=== PATIENT | male | born 1955 | race Caucasian/White ===

== ENCOUNTER 2020-10-30 09:53 | Outpatient (REF) | payer OTHER, SELFPAY ==
--- NOTE | ~2020-10-30 | US_ITS ---
EXAMINATION: US VENOUS WITH DOPPLER UPPER EXTREMITY, LEFT CLINICAL INFORMATION: Thrombophlebitis. COMPARISON: 5 mm thin TECHNIQUE: Ultrasound of the upper extremity is performed using compression sonography and color and pulse Doppler flow with assessment of augmentation of flow. There is also imaging and Doppler assessment of the jugular and subclavian veins. Spectral analysis with color-flow imaging is performed. FINDINGS: Respiratory variation, normal compression, and augmented flow are noted throughout the upper extremity including the axillary, brachial, cubital, and radial and ulnar veins. There is normal flow in the internal jugular and subclavian veins. There is no visible deep or superficial thrombophlebitis. There is anterior to bilateral lower fluid collection measuring 2.2 x 0.5 x 0.9 cm most likely communicating to the joint space. If the patient's symptoms progress, a followup ultrasound in 5 -7 days might be of value to exclude proximal propagation from a nonvisualized distal arm vein. US/US venous duplex UE LT IMPRESSION: No DVT demonstrated in the left upper extremity. Small left antecubital fluid collection likely connecting to the elbow joint.
== END 2020-10-30 09:54 | disposition home or self-care (01) ==
LOC: HO.US 09:53
PROVIDERS: PCP Internal Medicine; Visit Provider Emergency Medicine
DX: I80.9 Phlebitis and thrombophlebitis of unspecified site (principal)
CPT/HCPCS: 93971

== ENCOUNTER → 2022-01-12 14:32 | Outpatient (BNVA) | payer OTHER, SELFPAY | PROVIDERS: PCP Internal Medicine; Referring Provider Family Medicine; Visit Provider Internal Medicine Cardiovascular Disease | DX: I10 Essential (primary) hypertension (principal) | CPT/HCPCS: 93005 ==

== ENCOUNTER → 2022-02-16 07:29 | Outpatient (REF) | payer OTHER, SELFPAY ==
--- NOTE | 2022-02-16 07:31 | CA_ITS ---
Transthoracic Echocardiogram Patient (Last, First, Middle): Akil Wilkins, Gender: Male Date of : 1955 Age: 66 Procedure Date: 02/16/2022 Procedure Type: Transthoracic Echocardiogram Location: OP Height: 167.64 cm Weight: 86.18 kg BSA: 1.96 m2 Heart Rate: bpm BP: 152 / 95 mmHg Carpet Tile Layer: LORENA Referring MD: Saeed Pedro MD Assistant Account Manager: Saeed Pedro MD Symptoms: I10 - Essential (primary) hypertension Study Quality: Adequate ECG Rhythm: Sinus Conclusions: - Essentially normal study Findings Left Ventricle Normal left ventricular size, thickness, and systolic function. The visually estimated ejection fraction is between 60-65%. Spectral Doppler is indicative of a normal filling pattern. Peak GLS is -18.5%, within normal limits Right Ventricle Normal right ventricular cavity size and systolic function. Atria Both atria are normal in size. There is no evidence of interatrial shunt. Aortic Valve Normal aortic valve structure and function. There is no aortic valve stenosis. There is no aortic valve regurgitation. Mitral Valve Normal mitral valve structure and function. There is trace mitral valve regurgitation. There is no mitral valve stenosis. Pulmonic Valve The pulmonic valve is likely normal. There is trace pulmonic valve regurgitation. Tricuspid Valve Normal tricuspid valve structure. Tricuspid regurgitation envelope is inadequate for calculation of right ventricular systolic pressure. Normal right atrial pressure. Great Vessels All visible segments of the aorta are normal in size. The pulmonary artery was not well visualized. Venous The inferior vena cava is normal in size and collapses greater than 50% with inspiration. Pericardium/Pleural There is a trivial pericardial effusion. Measurements 2D Linear Measurements IVSd: 1.09 0.6-0.9/0.6-1.0 cm LVIDd: 4.55 3.9-5.3/4.2-5.9 cm LVIDd Index: 2.32 2.4-3.2/2.2-3.1 cm/m2 LVIDs: 2.83 2.0-3.6 cm LVPWd: 1.11 0.7-1.1 cm LA Diam: 3.50 2.7-3.8/3.0-4.0 cm LAIDs Index: 1.79 1.5-2.3 cm/m2 LV Mass: 221.88 67-162/88-224 g LV Mass Index: 113.21 43-95/49-115 g/m2 LVOT Diam: 2.10 3.0+(-)1.3 cm 2D Systolic Function EF 4C: 66.70 >55% EF 2C: 66.00 >55% EF BiP: 65.20 >55% Mitral Valve MV Pk E: 0.84 MV PK A: 0.84 MV Decel Time: 281.00 E/A: 1.00 E'Lateral: 10.30 E'Medial: 7.29 E/E' Med: 11.50 E/E' Lat: 8.20 PHT: 82.00 MVA PHT: 2.68 Decel Cache: 2.99 Aortic Valve AoV Pk Carl: 1.43 AoV Mn Carl: 0.96 AoV VTI: 0.34 AoV Pk Grad: 8.00 Aov Mn Grad: 4.00 ANALIA Cont.VTI: 2.58 LVOT LVOT Pk Carl: 1.10 LVOT Mn Carl: 0.65 LVOT VTI: 0.25 LVOT Pk Grad: 5.00 LVOT Mn Grad: 2.00 LVOT Diam: 2.10 LVOT Area: 3.46 Diastolic Function MV Pk E: 0.84 MV Pk A: 0.84 E/A: 1.00 E'Medial: 7.29 E/E' Med: 11.50 E' Laterial: 10.30 E/E' Lat: 8.20 Right Ventricle TAPSE (mm): 21.20 TVS' Carl: 14.10 Tricuspid Valve RA Press: 3.00 Great Vessels Aorta Sinus of Valsalva: 2.98 2.0-3.[address] [place]: 2.33 1.7-3.4 cm Ao Asc: 3.10 2.1-3.4 cm Updated in Other Vendor System with Status of Final Saeed Pedro MD electronically signed on 02/17/2022 4:25:52 PM with status of Final
== END ==
LOC: HO.CARD 07:29
PROVIDERS: PCP Internal Medicine; Visit Provider Internal Medicine Cardiovascular Disease
DX: I10 Essential (primary) hypertension (principal)
CPT/HCPCS: 93306; 93356

== ENCOUNTER 2022-05-04 15:47 | Inpatient (IN) | payer OTHER, SELFPAY ==
--- NOTE | ~2022-05-04 | US_ITS ---
EXAMINATION: US VENOUS ULTRASOUND WITH DOPPLER LOWER EXTREMITY, RIGHT CLINICAL INFORMATION: Right thigh pain with elevated d-dimer COMPARISON: None TECHNIQUE: Ultrasound of the deep veins is performed from the hip to the calf with compression sonography and color and pulse Doppler assessment. Spectral analysis with color-flow imaging is performed. FINDINGS: There is normal venous compression and respiratory variation and augmented flow. The visualized common femoral vein, superficial femoral vein, profunda femoral vein, popliteal vein, and the trifurcation region shows no evidence of deep venous thrombosis. There is no significant popliteal fossa cyst. The contralateral left common femoral vein is unremarkable. If the patient's symptoms persist, followup ultrasound in 5 days 7 days might be of value to exclude proximal propagation from a non-visualized calf vein. US/US venous duplex LE RT IMPRESSION: No DVT demonstrated in the right lower extremity.
--- NOTE | ~2022-05-04 | XR_ITS ---
EXAMINATION: XR CHEST CLINICAL INFORMATION: Shortness of breath COMPARISON: None TECHNIQUE: Frontal view of the chest was obtained. FINDINGS: No significant abnormality is noted involving the heart, lungs, mediastinum, bony thorax or soft tissues. XR/XR chest 1V IMPRESSION: Unremarkable examination.
--- NOTE | ~2022-05-04 | CT_ITS ---
EXAMINATION: CT ANGIOGRAM OF THE CHEST WITH AND WITHOUT CONTRAST (CT PULMONARY ANGIOGRAM FOR PE) CLINICAL INFORMATION: Reason for Exam + dimer sob hypoxia COMPARISON: None TECHNIQUE: Prior to contrast administration, noncontrast localization images were obtained. Subsequently, multidetector volumetric imaging was performed from the thoracic inlet to below the diaphragms following the administration of 65 mL Omnipaque 350 intravenous contrast. No contrast reaction reported Sagittal, coronal, and MIP oblique sagittal reformatted images were obtained on the CT workstation, uploaded to PACS, and reviewed. This CT examination was performed using dose optimization techniques as appropriate, variously including the following: *Automated exposure control *Adjustment of mA and/or kV according to patient size (this includes techniques or standardized protocols for targeted exams where dose is matched to indication/reason for exam; i.e. extremities or head) *Use of iterative reconstruction technique Total exam dose-length product 374 mGy-cm FINDINGS: QUALITY OF STUDY/CONTRAST BOLUS: Satisfactory. PULMONARY ARTERIES: No central or segmental pulmonary emboli. THORACIC AORTA: No aneurysm or dissection. LUNG: There is dense consolidation in the left lower lobe most likely pneumonia PLEURA: No pleural effusion or pneumothorax. MEDIASTINUM: Normal heart size. No pericardial effusion. No hilar or mediastinal lymphadenopathy. No evidence of septal bowing or right heart strain. CORONARY ARTERY CALCIFICATION: None visualized on this study. CHEST WALL/AXILLA: No axillary or internal mammary lymphadenopathy. OSSEOUS STRUCTURES: No acute or suspicious osseous abnormality. UPPER ABDOMEN: Unremarkable. No reflux of contrast into the hepatic veins to suggest elevated right heart pressures. CT/CT angio chest PE protocol IMPRESSION: No evidence of pulmonary embolism. Left lower lobe pneumonia VTE: negative
[2022-05-04 16:02] VITALS: BP 136/76; BP 153/85; PULSE 89; PULSE 92; RESP 18; TEMP 38.1; O2SAT 92; O2SAT 98; BMI 29.3
[2022-05-04 16:07] VITALS: BP 132/71; PULSE 97; RESP 18; TEMP 38.7; O2SAT 96
--- NOTE | 2022-05-04 16:12 | ED.SOB ---
HPI - SOB/Dyspnea General Chief Complaint: Dyspnea Stated Complaint: DIFF BREATHING,FEVER,COUGH,FROM URGENT CARE Time Seen by Provider: 05/04/22 16:07 Source: patient and EMS Mode of arrival: EMS Limitations: no limitations History of Present Illness HPI Narrative: This is a 66-year-old male history of JOAQUINA, hypertension presenting to the emergency department via ambulance from the [facility] according to patient he does not know why he is here he tells me that they told him he was short of breath, and had bad oxygen, he tells me that he initially went there to get evaluated for body aches and pains and right-sided calf pain, when they saw his oxygen (90-92% on RA) they called an ambulance and brought him in for further evaluation. Patient arrives on 2 L saturating 99%, I took oxygen off upon patient's arrival any saturating 97% on room air without labored breathing. Patient reports that he has been having 2 days of right upper thigh pain, and body aches and pains as well as fatigue and malaise. Denies any other medical complaints at this time. He denies chest pain, shortness of breath, cough, nausea, vomiting, abdominal pain, headache, vision changes, lower extremity edema, vision changes, dizziness. Patient not on blood thinners, no history of DVT or PE. Patient doesnt wear oxygen at home. Patient denies trauma to right thigh Related Data Home Medications Medication Instructions Recorded Confirmed amlodipine 10 mg tablet 10 mg PO DAILY 01/12/22 01/12/22 ascorbate calcium (vitamin C) 500 500 mg PO DAILY 01/12/22 01/12/22 mg tablet aspirin 81 mg tablet,delayed 81 mg PO DAILY 01/12/22 01/12/22 release (Adult Aspirin Regimen) cholecalciferol (vitamin D3) 25 25 mcg PO DAILY 01/12/22 01/12/22 mcg (1,000 unit) capsule cinnamon bark 500 mg capsule 500 mg PO DAILY 01/12/22 01/12/22 (Cinnamon) metoprolol succinate 100 mg 100 mg PO DAILY 01/12/22 01/12/22 tablet,extended release 24 hr multivitamin 1 tab PO DAILY 01/12/22 01/12/22 simvastatin 40 mg tablet 40 mg PO BEDTIME 01/12/22 01/12/22 Previous Rx's Medication Instructions Recorded valsartan 160 1 tab PO DAILY #30 tabs 01/12/22 mg-hydrochlorothiazide 25 mg tablet bisacodyl 5 mg tablet,delayed 10 mg PO ONCE 1 day #2 tabs 01/19/22 release (Dulcolax (bisacodyl)) polyethylene glycol 3350 17 238 g PO ONCE #238 grams 01/19/22 gram/dose oral powder (Miralax) Allergies Allergy/AdvReac Type Severity Reaction Status Date / Time penicillin G [Penicillin G] Allergy Mild SYNCOPE Verified 05/04/22 16:05 Review of Systems Review of Systems: Constitutional : No Weight loss, No Fever, No Chills, + Fatigue, + Malaise ENT/Mouth : No sore throat, No Rhinorrhea Eyes: No Eye Pain, No Swelling, No Redness Cardiovascular : No Chest Pain, No SOB, No Dyspnea on Exertion, No Orthopnea, No Edema, No Palpitations Respiratory : No Cough, No Sputum, No Wheezing Gastrointestinal : No Nausea, No Vomiting, No Diarrhea, No Constipation, No abdominal Pain, No Hematochezia, No Melena Genitourinary : No Dysuria, No Urinary Frequency, No Hematuria, Musculoskeletal : No joint pain, + Myalgias, No Joint Swelling, + right thigh pain Skin : No Skin Lesions, No rash Neuro : No Weakness, No Numbness, No Dizziness, No Headache Psych : No Anxiety/Panic, No Depression All other systems reviewed and are negative Yes all other systems are reviewed and are negative [facility] Past Medical History Attestation statement: The following information was validated with the patient. Source: old records reviewed and nursing notes reviewed Medical History HTN (hypertension) Obstructive sleep apnea Family History Family History Father HTN (hypertension) Mother No problems noted. Social History Social History Patient Tobacco Use Status: Never used Tobacco Advance Directives: No Advance Directives Information Provided: Yes Physical Exam Vital Signs: Vital Signs: Last Vital Signs Temp 100.3 F 05/04/22 17:46 Pulse 97 05/04/22 16:07 Resp 18 05/04/22 16:07 BP 132/71 01/31/23 16:07 Pulse Ox 96 05/04/22 16:07 O2 Del Method 05/04/22 16:07 O2 Flow Rate 2 05/04/22 16:07 Oxygen Flow Rate 2 05/04/22 16:02 BMI result Body Mass Index 29.3 Patient is noted to be febrile. Appearance: Alert.? Oriented X3.? No acute distress.? Head: Normocephalic, atraumatic, no step-offs or deformities Eyes: Pupils equal, round and reactive to light.? ENT: Pharynx normal.? Neck: Normal inspection.? Neck supple.? CVS: Normal heart rate and rhythm.? Pulses normal.? Respiratory: No respiratory distress.? Breath sounds diminished to LLL.? Abdomen: Soft and nontender.? Skin: Skin warm and dry.? Normal skin color.? Normal skin turgor.? Extremities: No calf ttp, negative Abbey bilaterally. 5/5 strength to bilateral upper and lower extremities Back: No midline tenderness, no C-spine tenderness, full range of motion, no CVA tenderness bilaterally Neuro: Oriented X 3.? No motor deficit.? No sensory deficit. CN 2-12 intact Course Reevaluation(s) Reevaluation #1: CBC appears to be around patient's baseline with a baseline normocytic anemia. Patient's chemistry with hyponatremia 128, chloride also low 93, patient noted to have acute kidney injury BUN of 17, creatinine of 1.43 I suspect this is secondary to poor p.o. intake/dehydration. Patient's lactic acid 1.2. UA negative. Flu/COVID/negative. Chest xray unremarkable. Patient's D-dimers positive therefore CTA and right lower extremity duplex ordered and pending. Patient's BNP and troponin pending. Time: 17:00 Reevaluation #2: CTA with no blood clot, there is a left lower lobe pneumonia noted on scan. Patient was febrile at 1 point hypoxic, within TOD and hyponatremia at this time infection suspected antibiotics and fluids will be ordered. Discuss this case with hospitalist will admit patient for further intervention and treatment. Time: 19:31 Medications Administered Discontinued Medications Generic Name Dose Route Start Last Admin Trade Name Freq PRN Reason Stop Dose Admin Acetaminophen 975 mg 05/04/22 16:07 05/04/22 16:31 Acetaminophen 325 Mg Tablet PO 05/04/22 16:08 975 mg ONCE ONE Administration Sodium Chloride 1,000 mls @ 999 mls/hr 05/04/22 17:45 05/04/22 18:12 Ns IV 05/04/22 18:45 999 mls/hr .Q1H1M YULI Administration Sodium Chloride 1,000 mls @ 999 mls/hr 05/04/22 17:45 05/04/22 18:13 Ns IV 05/04/22 18:45 999 mls/hr .Q1H1M YULI Administration Iohexol 100 ml 05/04/22 18:34 05/04/22 18:34 Iohexol 350 Mg/Ml 100 Ml Infus..Btl IV 05/04/22 18:35 65 ml ONCE ONE Administration Medical Decision Making Medical Decision Making [facility] Narrative: 1615 This is a 66-year-old male presenting to the emergency department from urgent care with complaints of fatigue, malaise, body aches and pains and shortness of breath. Was noted to be hypoxic 90% on room air at urgent care. Patient does not wear oxygen. Also complaining of right thigh pain Physical exam LLL w/ diminished BS. Negative Abbey bilaterally. No lower extremity edema. Likely viral in origin ? PNA . Will rule out DVT of right lower extremity however unlikely. Unlikely that this is PE, ACS, CHF. Plan at this time labs, imaging, viral testing. Differential Diagnosis Differential Diagnoses: The differential diagnosis associated with the presentation includes Likely viral in origin ? PNA . Will rule out DVT of right lower extremity however unlikely. Unlikely that this is PE, ACS, CHF. Admission/Observation Consideration of admission/observation: Escalation of care including admission/observation considered Lab Data [facility] Lab Attestation statement: I reviewed the patient's lab results. 05/04/22 16:47 05/04/22 16:47 Labs: Lab Results 05/04/22 05/04/22 05/04/22 Range/Units 16:46 16:46 16:46 WBC (4.8-10.8) X10*3/uL RBC (4.60-5.80) X10*6/uL Hgb (14.0-18.0) g/dl Hct (42.0-52.0) % MCV (80.0-98.0) fL MCH (27.0-33.0) pg MCHC (31.0-36.0) g/dl RDW (11.0-16.0) % Plt Count (160-400) X10*3/uL MPV (9.4-12.4) fL Immature Gran % (Auto) (0.0-0.4) % Neut % (Auto) (45-73) % Lymph % (Auto) (20-40) % [place] % (Auto) (2-11) % Eos % (Auto) (0-4) % Baso % (Auto) (0-2) % Lymph # (Auto) (1.2-4.9) X10*3/uL [place] # (Auto) (0.1-1.2) X10*3/uL Eos # (Auto) (0.0-0.4) X10*3/uL Baso # (Auto) (0.0-0.2) X10*3/uL Abs Immat Gran (auto) (0.00-0.03) X10*3/uL Absolute Neuts (auto) (2.0-8.3) x10*3/uL Absolute Nucleated RBC (0.0-0.012) X10*3/uL Nucleated RBC % (auto) (0.0-0.2) /100WBC D-Dimer High Sensitivty NG/ML Sodium (135-145) mmol/L Potassium (3.3-5.1) mmol/L Chloride (96-108) mmol/L Carbon Dioxide (22-29) mmol/L Anion Gap (12-20) BUN (9-16) mg/dL Creatinine (0.5-1.4) mg/dL Estim Creat Clear Calc Estimated GFR Random Glucose (60-115) mg/dL Lactic Acid (0.5-2.0) mmol/L Calcium (8.4-10.2) mg/dL Magnesium (1.6-2.6) mg/dL Total Bilirubin (0.0-1.0) mg/dL AST (5-37) U/L ALT (0-40) U/L Alkaline Phosphatase (39-117) U/L Troponin I High Sens 13.9 (<3.5-35.0) ng/L B-Natriuretic Peptide (<100) pg/mL Total Protein (6.5-8.0) g/dL Albumin (3.5-5.0) g/dL Urine Color Urine Appearance Urine pH (5.0-9.0) Ur Specific [place] (1.005-1.025) Urine Protein (Neg-Trace) mg/dL Urine Glucose (UA) (Negative) mg/dL Urine Ketones (Negative) mg/dL Urine Blood (Negative) Urine Nitrite (Negative) Ur Leukocyte Esterase (Negative) Urine RBC (0-2) /HPF Urine WBC (0-5) /HPF Ur Squamous Epith Cells (0-2) /HPF Urine Bacteria (None Seen) Hyaline Casts (0-2) /LPF Granular Casts COVID-19 (SURJIT) Negative (Negative) COVID-19 Clin Com See Note Influenza Type A (CORI) Negative (Negative) Influenza Type B (CORI) Negative (Negative) Influenza A & B Note See Note 05/04/22 05/04/22 05/04/22 Range/Units 16:46 16:46 16:47 WBC 7.7 (4.8-10.8) X10*3/uL RBC 5.07 (4.60-5.80) X10*6/uL Hgb 12.3 L (14.0-18.0) g/dl Hct 38.2 L (42.0-52.0) % MCV 75.3 L (80.0-98.0) fL MCH 24.3 L (27.0-33.0) pg MCHC 32.2 (31.0-36.0) g/dl RDW 13.1 (11.0-16.0) % Plt Count 103 L (160-400) X10*3/uL MPV 11.2 (9.4-12.4) fL Immature Gran % (Auto) 0.3 (0.0-0.4) % Neut % (Auto) 82.8 H (45-73) % Lymph % (Auto) 10.1 L (20-40) % [place] % (Auto) 6.5 (2-11) % Eos % (Auto) 0.0 (0-4) % Baso % (Auto) 0.3 (0-2) % Lymph # (Auto) 0.8 L (1.2-4.9) X10*3/uL [place] # (Auto) 0.5 (0.1-1.2) X10*3/uL Eos # (Auto) 0.0 (0.0-0.4) X10*3/uL Baso # (Auto) 0.0 (0.0-0.2) X10*3/uL Abs Immat Gran (auto) 0.02 (0.00-0.03) X10*3/uL Absolute Neuts (auto) 6.4 (2.0-8.3) x10*3/uL Absolute Nucleated RBC 0.000 (0.0-0.012) X10*3/uL Nucleated RBC % (auto) 0.0 (0.0-0.2) /100WBC D-Dimer High Sensitivty NG/ML Sodium (135-145) mmol/L Potassium (3.3-5.1) mmol/L Chloride (96-108) mmol/L Carbon Dioxide (22-29) mmol/L Anion Gap (12-20) BUN (9-16) mg/dL Creatinine (0.5-1.4) mg/dL Estim Creat Clear Calc Estimated GFR Random Glucose (60-115) mg/dL Lactic Acid (0.5-2.0) mmol/L Calcium (8.4-10.2) mg/dL Magnesium (1.6-2.6) mg/dL Total Bilirubin (0.0-1.0) mg/dL AST (5-37) U/L ALT (0-40) U/L Alkaline Phosphatase (39-117) U/L Troponin I High Sens (<3.5-35.0) ng/L B-Natriuretic Peptide 24 (<100) pg/mL Total Protein (6.5-8.0) g/dL Albumin (3.5-5.0) g/dL Urine Color Yellow Urine Appearance Clear Urine pH 6.0 (5.0-9.0) Ur Specific [place] 1.025 (1.005-1.025) Urine Protein 100 (2+) H (Neg-Trace) mg/dL Urine Glucose (UA) Negative (Negative) mg/dL Urine Ketones 15 (Negative) mg/dL Urine Blood Moderate (2+) H (Negative) Urine Nitrite Negative (Negative) Ur Leukocyte Esterase Negative (Negative) Urine RBC 0-2 (0-2) /HPF Urine WBC 0-5 (0-5) /HPF Ur Squamous Epith Cells 6-10 (0-2) /HPF Urine Bacteria None Seen (None Seen) Hyaline Casts 3-5 (0-2) /LPF Granular Casts Present COVID-19 (SURJIT) (Negative) COVID-19 Clin Com Influenza Type A (CORI) (Negative) Influenza Type B (CORI) (Negative) Influenza A & B Note 05/04/22 05/04/22 05/04/22 Range/Units 16:47 16:47 16:47 WBC (4.8-10.8) X10*3/uL RBC (4.60-5.80) X10*6/uL Hgb (14.0-18.0) g/dl Hct (42.0-52.0) % MCV (80.0-98.0) fL MCH (27.0-33.0) pg MCHC (31.0-36.0) g/dl RDW (11.0-16.0) % Plt Count (160-400) X10*3/uL MPV (9.4-12.4) fL Immature Gran % (Auto) (0.0-0.4) % Neut % (Auto) (45-73) % Lymph % (Auto) (20-40) % [place] % (Auto) (2-11) % Eos % (Auto) (0-4) % Baso % (Auto) (0-2) % Lymph # (Auto) (1.2-4.9) X10*3/uL [place] # (Auto) (0.1-1.2) X10*3/uL Eos # (Auto) (0.0-0.4) X10*3/uL Baso # (Auto) (0.0-0.2) X10*3/uL Abs Immat Gran (auto) (0.00-0.03) X10*3/uL Absolute Neuts (auto) (2.0-8.3) x10*3/uL Absolute Nucleated RBC (0.0-0.012) X10*3/uL Nucleated RBC % (auto) (0.0-0.2) /100WBC D-Dimer High Sensitivty 401 NG/ML Sodium 128 L (135-145) mmol/L Potassium 3.3 (3.3-5.1) mmol/L Chloride 93 L (96-108) mmol/L Carbon Dioxide 26 (22-29) mmol/L Anion Gap 12 (12-20) BUN 17 H (9-16) mg/dL Creatinine 1.43 H (0.5-1.4) mg/dL Estim Creat Clear Calc 55.4 Estimated GFR 50 Random Glucose 172 H (60-115) mg/dL Lactic Acid 1.2 (0.5-2.0) mmol/L Calcium 7.8 L (8.4-10.2) mg/dL Magnesium 1.9 (1.6-2.6) mg/dL Total Bilirubin 1.0 (0.0-1.0) mg/dL AST 44 H (5-37) U/L ALT 19 (0-40) U/L Alkaline Phosphatase 45 (39-117) U/L Troponin I High Sens (<3.5-35.0) ng/L B-Natriuretic Peptide (<100) pg/mL Total Protein 6.9 (6.5-8.0) g/dL Albumin 3.8 (3.5-5.0) g/dL Urine Color Urine Appearance Urine pH (5.0-9.0) Ur Specific [place] (1.005-1.025) Urine Protein (Neg-Trace) mg/dL Urine Glucose (UA) (Negative) mg/dL Urine Ketones (Negative) mg/dL Urine Blood (Negative) Urine Nitrite (Negative) Ur Leukocyte Esterase (Negative) Urine RBC (0-2) /HPF Urine WBC (0-5) /HPF Ur Squamous Epith Cells (0-2) /HPF Urine Bacteria (None Seen) Hyaline Casts (0-2) /LPF Granular Casts COVID-19 (SURJIT) (Negative) COVID-19 Clin Com Influenza Type A (CORI) (Negative) Influenza Type B (CORI) (Negative) Influenza A & B Note Independent Interpretation I performed an independent interpretation of an: Plain X-Ray Radiology Impression Discussion of test interpretation with radiology: I have reviewed the radiologist's reading. Core Measures AMI core measures followed: Yes Measure exclusions: not indicated Critical Care Time Critical Care Time Critical Care Time: Yes Total Critical Care Time: 35 Attestation: I attest to this time spent taking care of the patient, obtaining history, physical, reviewing labs, imaging, speaking to my attending, speaking to specialist. Discharge Plan Discharge Clinical Impression: Left lower lobe pneumonia, Shortness of breath, Hyponatremia, TOD (acute kidney injury) Patient Disposition: Admitted As Inpatient Prescriptions: No Action simvastatin 40 mg tablet 40 mg PO BEDTIME amlodipine 10 mg tablet 10 mg PO DAILY metoprolol succinate 100 mg tablet extended release 24 hr 100 mg PO DAILY multivitamin Tablet 1 tab PO DAILY aspirin [Adult Aspirin Regimen] 81 mg tablet,delayed release (DR/EC) 81 mg PO DAILY ascorbate calcium (vitamin C) 500 mg tablet 500 mg PO DAILY cinnamon bark [Cinnamon] 500 mg capsule 500 mg PO DAILY cholecalciferol (vitamin D3) 25 mcg (1,000 unit) capsule 25 mcg PO DAILY valsartan-hydrochlorothiazide 160-25 mg tablet 1 tab PO DAILY Qty: 30 5RF bisacodyl [Dulcolax (bisacodyl)] 5 mg tablet,delayed release (DR/EC) 10 mg PO ONCE 1 Days Qty: 2 0RF Rx Instructions: take 2 tabs at noon the day before your colonoscopy polyethylene glycol 3350 [Miralax] 17 gram/dose powder 238 g PO ONCE Qty: 238 0RF Rx Instructions: As directed by gastroenterology department at [facility]
[2022-05-04] MEDS: Acetaminophen 325 MG TABLET 975 MG PO (16:31)
[2022-05-04 17:00] LABS: Hemoglobin 12.3 g/dl (14.0-18.0); Imm Gran Abs Auto 0.02 X10*3/uL (0.00-0.03); Imm Gran Pct Auto 0.3 % (0.0-0.4); PLT CLUMP 1; Red Cell Distribution Width 13.1 % (11.0-16.0); SCAN SMEAR FLAG 1
[2022-05-04 17:02] LABS: Basophils Percent Auto 0.3 % (0-2); Hematocrit 38.2 % (42.0-52.0); Lymphocytes Absolute Auto 0.8 X10*3/uL (1.2-4.9); Lymphocytes Percent Auto 10.1 % (20-40); Mean Corpuscular HGB Conc 32.2 g/dl (31.0-36.0); Mean Corpuscular Hemoglobin 24.3 pg (27.0-33.0); Mean Corpuscular Volume 75.3 fL (80.0-98.0); Mean Platelet Volume 11.2 fL (9.4-12.4); Monocytes Absolute Auto 0.5 X10*3/uL (0.1-1.2); Monocytes Percent Auto 6.5 % (2-11); Neutrophils Absolute Auto 6.4 x10*3/uL (2.0-8.3); Neutrophils Percent Auto 82.8 % (45-73); Red Blood Count 5.07 X10*6/uL (4.60-5.80)
[2022-05-04 17:05] LABS: MANUAL DIFF FLAG NO; Platelet Count 103 X10*3/uL (160-400); White Blood Count 7.7 X10*3/uL (4.8-10.8)
[2022-05-04 17:05] LABS: Appearance Urine Clear; Color Urine Yellow; Glucose Urine UA Negative (Negative); Leukocyte Esterase Urine Negative (Negative); Nitrite Urine Negative (Negative); Specific Gravity - Urine 1.025 (1.005-1.025); UMIC TRIGGER UACC YES; Urine Blood Moderate (2+) (Negative); Urine Ketones 15 mg/dL (Negative); Urine Protein 100 (2+) mg/dL (Neg-Trace)
[2022-05-04 17:17] LABS: D Dimer High Sensitivity 401 NG/ML
[2022-05-04 17:18] LABS: COVID-19 Test Negative (Negative); IDNOW Serial# 16C4AD1C; IDNOW Serial# BCCEAD1C; Influenza A Negative (Negative); Influenza B2 Negative (Negative)
[2022-05-04 17:19] LABS: Lactic Acid 1.2 mmol/L (0.5-2.0)
[2022-05-04 17:24] LABS: Alanine Aminotransferase 19 U/L (0-40); Albumin Level 3.8 g/dL (3.5-5.0); Alkaline Phosphatase 45 U/L (39-117); Anion Gap 12 (12-20); Aspartate Amino Transferase 44 U/L (5-37); Blood Urea Nitrogen 17 mg/dL (9-16); Calcium 7.8 mg/dL (8.4-10.2); Carbon Dioxide 26 mmol/L (22-29); Chloride 93 mmol/L (96-108); Creatinine Clr Calc Pharmacy 55.4; Estimated Glomerular Filt Rate 50; Glucose Random 172 mg/dL (60-115); Magnesium 1.9 mg/dL (1.6-2.6); Potassium 3.3 mmol/L (3.3-5.1); Sodium 128 mmol/L (135-145); Total Protein 6.9 g/dL (6.5-8.0)
[2022-05-04 17:29] LABS: B Type Natriuretic Peptide 24 pg/mL (<100)
[2022-05-04 17:31] LABS: Troponin-I High Sensitivity 13.9 ng/L (<3.5-35.0)
[2022-05-04 17:32] LABS: Bacteria Urine None Seen (None Seen); Granular Casts Urine Present; RBC Urine 0-2 /HPF (0-2); WBC Urine 0-5 /HPF (0-5)
[2022-05-04 17:46] VITALS: TEMP 37.9
[2022-05-04] MEDS: 0.9 % Sodium Chloride 1,000 ML 999 ML IV ×3 (18:12→19:40)
[2022-05-04] MEDS: iohexoL 350 MG/ML 100 ML INFUS..BTL IV (18:34)
[2022-05-04] MEDS: cefTRIAXone sodium 1 GM in 0.9 % Sodium Chloride 50 ML IV (19:40)
[2022-05-04 19:47] VITALS: BP 131/68; PULSE 94; RESP 16; O2SAT 97
--- NOTE | 2022-05-04 19:51 | PM.IMHP ---
History of Present Illness Date of Service: 05/04/22 Chief Complaint: Dyspnea This is a 66-year-old male with pertinent history of essential hypertension, mixed hyperlipidemia, obstructive sleep apnea who was sent from [facility] for evaluation of hypoxemia. Patient states he went to [facility] and was told that his oxygen was low. He has had difficulty breathing, worse with exertion. Also been complaining of fever, chills, generalized body ache and cough. Patient was requiring 2 L of supplemental oxygen during ambulation as per EMS. No sick contacts. Patient denies chest discomfort, palpitations, abdominal pain, changes in urinary or bowel habits. No history of DVT or PE. Does not use supplemental oxygen at home. Does not use home CPAP for JOAQUINA. In the emergency department, patient was found to be febrile and requiring 2 L supplemental oxygen. Imaging with left lower lobe pneumonia. Review of Systems Constitutional: Constitutional: Reports chills, Reports fatigue, Reports fever(s), Reports lethargy and Reports malaise Cardiovascular: Cardiovascular: Reports no additional cardiovascular complaints and Reports dyspnea on exertion Respiratory: Respiratory: Reports cough and Reports dyspnea on exertion Gastrointestinal: Gastrointestinal: Reports no additional gastrointestinal complaints Genitourinary: Genitourinary: Reports no additional male genitourinary complaints Endocrine: Endocrine: Reports fatigue PMFSH Medical History HTN (hypertension) Obstructive sleep apnea Family History Father HTN (hypertension) Mother No problems noted. Social History Patient Tobacco Use Status: Never used Tobacco Advance Directives: No Advance Directives Information Provided: Yes Meds Allergies Allergy/AdvReac Type Severity Reaction Status Date / Time penicillin G [Penicillin G] Allergy Mild SYNCOPE Verified 05/04/22 16:05 Active Medications: Current Medications Acetaminophen (Acetaminophen 325 Mg Tablet) 650 mg PO Q6H PRN PRN Reason: Pain, Mild (Pain Scale 1-3) Enoxaparin Sodium (Enoxaparin Sodium 40 Mg/0.4 Ml Syringe) 40 mg SUBCUT Q24H [facility]ULI Ceftriaxone Sodium 1 gm/ (Sodium Chloride) 50 mls @ 100 mls/hr IV ONCE ONE Stop: 05/04/22 19:56 Last Admin: 05/04/22 19:40 Dose: 100 mls/hr Sodium Chloride (Ns) 1,000 mls @ 999 mls/hr IV .Q1H1M YULI Stop: 05/04/22 20:30 Last Admin: 05/04/22 19:40 Dose: 999 mls/hr Ceftriaxone Sodium 1 gm/ (Sodium Chloride) 50 mls @ 100 mls/hr IV Q24H [facility] Azithromycin 500 mg/ Sodium (Chloride) 250 mls @ 125 mls/hr IV Q24H [facility] Melatonin (Melatonin 3 Mg Tablet) 6 mg PO BEDTIME PRN PRN Reason: Insomnia Ondansetron HCl (Ondansetron Hcl 4 Mg/2 Ml Vial) 4 mg IVPUSH Q8H PRN PRN Reason: Nausea and Vomiting Pharmacy Consult (Consult Rx Perform Med Rec) 1 each MISCELLANE ONCE PRN PRN Reason: Consult order Pharmacy Consult (Consult Rx Perform Med Rec) 1 each MISCELLANE ONCE PRN PRN Reason: Consult order Sodium Chloride (0.9 % Sodium Chloride Flush 3 Ml Syringe) 3 ml IVFLUSH QSHIFT [facility] Home Medications Medication Instructions Recorded Confirmed Last Taken Type amlodipine 10 mg tablet 10 mg PO DAILY 01/12/22 01/12/22 Unknown History ascorbate calcium (vitamin C) 500 500 mg PO DAILY 01/12/22 01/12/22 Unknown History mg tablet aspirin 81 mg tablet,delayed 81 mg PO DAILY 01/12/22 01/12/22 Unknown History release (Adult Aspirin Regimen) cholecalciferol (vitamin D3) 25 25 mcg PO DAILY 01/12/22 01/12/22 Unknown History mcg (1,000 unit) capsule cinnamon bark 500 mg capsule 500 mg PO DAILY 01/12/22 01/12/22 Unknown History (Cinnamon) metoprolol succinate 100 mg 100 mg PO DAILY 01/12/22 01/12/22 Unknown History tablet,extended release 24 hr multivitamin 1 tab PO DAILY 01/12/22 01/12/22 Unknown History simvastatin 40 mg tablet 40 mg PO BEDTIME 01/12/22 01/12/22 Unknown History Physical Exam Vital Signs and Narrative: Vital Signs: Last Vital Signs Temp 100.3 F 05/04/22 17:46 Pulse 94 05/04/22 19:47 Resp 16 05/04/22 19:47 BP 131/68 05/04/22 19:47 Pulse Ox 97 05/04/22 19:47 O2 Del Method 05/04/22 19:47 O2 Flow Rate 2 05/04/22 16:07 Oxygen Flow Rate 2 05/04/22 16:02 BMI result Body Mass Index 29.3 Middle-aged male lying in bed on 2 L supplemental oxygen Neck supple, no JVD Regular rate and rhythm, S1-S2 heard Left-sided crackles without wheezing Abdomen soft nontender, no guarding, no rigidity Patient is awake, alert and oriented to self, place, time and person ; no focal motor deficit Psych: Normal mood No pedal edema Results Labs 05/04/22 16:47 05/04/22 16:47 Labs: Laboratory Results - last 24 hr 05/04/22 05/04/22 05/04/22 16:46 16:46 16:46 MCV MCH MCHC RDW Plt Count MPV Immature Gran % (Auto) Neut % (Auto) Lymph % (Auto) [place] % (Auto) Eos % (Auto) Baso % (Auto) Lymph # (Auto) [place] # (Auto) Eos # (Auto) Baso # (Auto) Abs Immat Gran (auto) Absolute Neuts (auto) Absolute Nucleated RBC Nucleated RBC % (auto) D-Dimer High Sensitivty Anion Gap Estim Creat Clear Calc Estimated GFR Random Glucose Lactic Acid Calcium Magnesium Total Bilirubin AST ALT Alkaline Phosphatase Troponin I High Sens 13.9 B-Natriuretic Peptide Total Protein Albumin Urine Color Urine Appearance Urine pH Ur Specific [place] Urine Protein Urine Glucose (UA) Urine Ketones Urine Blood Urine Nitrite Ur Leukocyte Esterase Urine RBC Urine WBC Ur Squamous Epith Cells Urine Bacteria Hyaline Casts Granular Casts COVID-19 (SURJIT) Negative COVID-19 Clin Com See Note Influenza Type A (CORI) Negative Influenza Type B (CORI) Negative Influenza A & B Note See Note 05/04/22 05/04/22 05/04/22 16:46 16:46 16:47 MCV 75.3 L MCH 24.3 L MCHC 32.2 RDW 13.1 Plt Count 103 L MPV 11.2 Immature Gran % (Auto) 0.3 Neut % (Auto) 82.8 H Lymph % (Auto) 10.1 L [place] % (Auto) 6.5 Eos % (Auto) 0.0 Baso % (Auto) 0.3 Lymph # (Auto) 0.8 L [place] # (Auto) 0.5 Eos # (Auto) 0.0 Baso # (Auto) 0.0 Abs Immat Gran (auto) 0.02 Absolute Neuts (auto) 6.4 Absolute Nucleated RBC 0.000 Nucleated RBC % (auto) 0.0 D-Dimer High Sensitivty Anion Gap Estim Creat Clear Calc Estimated GFR Random Glucose Lactic Acid Calcium Magnesium Total Bilirubin AST ALT Alkaline Phosphatase Troponin I High Sens B-Natriuretic Peptide 24 Total Protein Albumin Urine Color Yellow Urine Appearance Clear Urine pH 6.0 Ur Specific [place] 1.025 Urine Protein 100 (2+) H Urine Glucose (UA) Negative Urine Ketones 15 Urine Blood Moderate (2+) H Urine Nitrite Negative Ur Leukocyte Esterase Negative Urine RBC 0-2 Urine WBC 0-5 Ur Squamous Epith Cells 6-10 Urine Bacteria None Seen Hyaline Casts 3-5 Granular Casts Present COVID-19 (SURJIT) COVID-19 Clin Com Influenza Type A (CORI) Influenza Type B (CORI) Influenza A & B Note 05/04/22 05/04/22 05/04/22 16:47 16:47 16:47 MCV MCH MCHC RDW Plt Count MPV Immature Gran % (Auto) Neut % (Auto) Lymph % (Auto) [place] % (Auto) Eos % (Auto) Baso % (Auto) Lymph # (Auto) [place] # (Auto) Eos # (Auto) Baso # (Auto) Abs Immat Gran (auto) Absolute Neuts (auto) Absolute Nucleated RBC Nucleated RBC % (auto) D-Dimer High Sensitivty 401 Anion Gap 12 Estim Creat Clear Calc 55.4 Estimated GFR 50 Random Glucose 172 H Lactic Acid 1.2 Calcium 7.8 L Magnesium 1.9 Total Bilirubin 1.0 AST 44 H ALT 19 Alkaline Phosphatase 45 Troponin I High Sens B-Natriuretic Peptide Total Protein 6.9 Albumin 3.8 Urine Color Urine Appearance Urine pH Ur Specific [place] Urine Protein Urine Glucose (UA) Urine Ketones Urine Blood Urine Nitrite Ur Leukocyte Esterase Urine RBC Urine WBC Ur Squamous Epith Cells Urine Bacteria Hyaline Casts Granular Casts COVID-19 (SURJIT) COVID-19 Clin Com Influenza Type A (CORI) Influenza Type B (CORI) Influenza A & B Note Imaging Radiologist's Impressions: Impressions Chest X-Ray 05/04/22 17:09 IMPRESSION: Unremarkable examination. Chest CTA 05/04/22 18:38 IMPRESSION: No evidence of pulmonary embolism. Left lower lobe pneumonia VTE: negative Venous Duplex 05/04/22 18:56 IMPRESSION: No DVT demonstrated in the right lower extremity. Assessment and Plan (1) Shortness of breath: Status: Acute (2) Hyponatremia: Status: Acute (3) TOD (acute kidney injury): Status: Acute (4) Left lower lobe pneumonia: Status: Acute Plan This is a 66-year-old male with pertinent history of essential hypertension, mixed hyperlipidemia, obstructive sleep apnea who was sent from [facility] for evaluation of hypoxemia. #. Sepsis and ambulatory hypoxemia due to left lower lobe pneumonia: Will admit patient and continue empiric IV antibiotics. Lactic acid and blood culture obtained. Also obtaining sputum culture with Gram stain and Legionella antigen. Resuscitated with IV crystalloids #. Hyponatremia, likely hypovolemic: Monitor with fluid resuscitation #. Acute kidney injury, stage I likely pre renal: Monitor urine output and creatinine with fluid resuscitation. Avoid nephrotoxins #. Thrombocytopenia: Likely in the setting of infection. Monitor #. JOAQUINA: Not on CPAP at home #. Mixed hyperlipidemia: On statin #. Essential hypertension: Home antihypertensive in the setting of sepsis. Restart as appropriate Med rec pending DVT prophylaxis: Lovenox 40 mg daily Full code Cardiac diet Admit as inpatient and will require two night minimum hospital stay for IV antibiotics Time Spent With Patient Time: Total time managing care of this patient today ____ minutes. Quality Stroke Does the patient have a stroke diagnosis?: No VTE Prior VTE?: No VTE Risk Level:: Medical - moderate - high VTE Device Contraindication: Treatment Not Indicated VTE Drug Contraindication: N/A - Med Ordered
--- NOTE | 2022-05-04 20:02 | PC.NURSE ---
this rn assumed care of pt @1900. pt resting comfortably on stretcher at this time. pt medicated according to jun. pt family member at bedside at this time
[2022-05-04 20:58] LABS: Troponin-I High Sensitivity 12.3 ng/L (<3.5-35.0)
--- NOTE | 2022-05-04 21:03 | MHC.CM.PN ---
CM met with admitted patient with bed assignment pending. A&Ox4. full time staff interpreter used as pt is Amharic speaking only. is present. Employed. Lives with . No DME/serivces. [employer] x2. Has JOAQUINA, does NOT use CPAP. No HCP on file. Reviewed, completed and signed. Copies given. Uploaded into [facility] and [facility]. HCP/ Debby Stanley [phone]. D/C plan: Home without services. to transport home. CM will follow for discharge needs.
--- NOTE | 2022-05-04 21:04 | PHA.MEDREC ---
Pharmacy Consult ? Medication Reconciliation Pharmacy has completed the medication reconciliation. Spoke with patient via tape controlled machine stitcher. Patient knew all home meds, last took doses yesterday.
[2022-05-04] MEDS: Enoxaparin Sodium 40 MG/0.4 ML SYRINGE SUBCUT (21:09)
[2022-05-04] MEDS: Azithromycin 500 MG in 0.9 % Sodium Chloride 250 ML 125 MG IV (21:09)
[2022-05-04 22:03] VITALS: BMI 30.5
[2022-05-04 22:10] VITALS: BP 139/77; PULSE 101; RESP 19; TEMP 37.7; O2SAT 91
[2022-05-05] VITALS (7 sets, daily range): BP systolic 104–142; BP diastolic 52–72; PULSE 93–108; RESP 16–19; TEMP 36.9–39.3; O2SAT 88–95
[2022-05-05] MEDS: Acetaminophen 325 MG TABLET 650 MG PO ×2 (00:14→15:30)
--- NOTE | 2022-05-05 01:11 | PC.NURSE ---
patient found around midnight to be 88%room air. 2L oxygen applied with improvement to 93%. No SOB, or cough. Tylenol given for temp 102.1 oral.
[2022-05-05 07:06] LABS: MANUAL DIFF FLAG NO
[2022-05-05 07:22] LABS: Hematocrit 35.5 % (42.0-52.0); Hemoglobin 11.3 g/dl (14.0-18.0); Imm Gran Abs Auto 0.01 X10*3/uL (0.00-0.03); Imm Gran Pct Auto 0.2 % (0.0-0.4); Lymphocytes Absolute Auto 0.8 X10*3/uL (1.2-4.9); Lymphocytes Percent Auto 14.6 % (20-40); Mean Corpuscular HGB Conc 31.8 g/dl (31.0-36.0); Mean Corpuscular Hemoglobin 23.8 pg (27.0-33.0); Mean Corpuscular Volume 74.9 fL (80.0-98.0); Monocytes Absolute Auto 0.4 X10*3/uL (0.1-1.2); Monocytes Percent Auto 7.3 % (2-11); Neutrophils Absolute Auto 4.1 x10*3/uL (2.0-8.3); Neutrophils Percent Auto 77.9 % (45-73); Platelet Count 106 X10*3/uL (160-400); Red Blood Count 4.74 X10*6/uL (4.60-5.80); Red Cell Distribution Width 13.3 % (11.0-16.0); White Blood Count 5.2 X10*3/uL (4.8-10.8)
[2022-05-05 07:53] LABS: Anion Gap 12 (12-20); Blood Urea Nitrogen 14 mg/dL (9-16); Carbon Dioxide 25 mmol/L (22-29); Chloride 102 mmol/L (96-108); Creatinine Clr Calc Pharmacy 74.7; Estimated Glomerular Filt Rate > 60; Glucose Random 147 mg/dL (60-115); Potassium 3.6 mmol/L (3.3-5.1); Sodium 135 mmol/L (135-145)
[2022-05-05 07:59] LABS: Calcium 7.1 mg/dL (8.4-10.2)
[2022-05-05] MEDS: 0.9 % Sodium Chloride Flush 3 ML SYRINGE IVFLUSH ×3 (09:23→20:27)
--- NOTE | 2022-05-05 15:32 | HO.PM.IMPN ---
Subjective Subjective Date of Service: 05/05/22 Interval History: Seen in follow-up for left lower lobe pneumonia with sepsis, pre renal TOD Interval history: Patient seen examined this morning, feeling much better. No overnight events. However did develop fever of 102.7, tachycardic to 108 likely secondary to fever, not sepsis. No leukocytosis. No complaints Review of Systems Review of Systems: Yes all other systems are reviewed and are negative Physical Exam Vital Signs: Vital Signs: Last Vital Signs Temp 102.7 F H 05/05/22 15:13 Pulse 108 H 05/05/22 15:13 Resp 19 05/05/22 15:13 BP 142/72 H 05/05/22 15:13 Pulse Ox 94 05/05/22 15:13 O2 Del Method 05/05/22 15:13 O2 Flow Rate 2 05/05/22 03:38 Oxygen Flow Rate 2 05/04/22 16:02 BMI result Body Mass Index 30.5 Constitutional - Awake and Alert, No apparent distress Eyes - PERRLA, EOMI Cardiovascular - S1S2, RRR, No edema Respiratory - Normal lung expansion, Normal respiratory effort, No respiratory distress, diminished LLL with crackles Gastrointestinal - NT / ND; +BS; No rebound or guarding Extremities - no calf tenderness bilaterally, no swelling Skin - Warm/Dry Neurological - Alert & oriented x3 Psychological - Appropriate affect Objective Data Active Medications Acetaminophen (Acetaminophen 325 Mg Tablet) 650 mg PO Q6H PRN PRN Reason: Pain, Mild (Pain Scale 1-3) Last Admin: 05/05/22 00:14 Dose: 650 mg Documented By: MARCEL Enoxaparin Sodium (Enoxaparin Sodium 40 Mg/0.4 Ml Syringe) 40 mg SUBCUT Q24H [facility] Last Admin: 05/04/22 21:09 Dose: 40 mg Documented By: DANIELLE Ceftriaxone Sodium 1 gm/ (Sodium Chloride) 50 mls @ 100 mls/hr IV Q24H [facility] Azithromycin 500 mg/ Sodium (Chloride) 250 mls @ 125 mls/hr IV Q24H [facility] Last Infusion: 05/05/22 00:25 Dose: 125 mls/hr Documented By: MARCEL Melatonin (Melatonin 3 Mg Tablet) 6 mg PO BEDTIME PRN PRN Reason: Insomnia Ondansetron HCl (Ondansetron Hcl 4 Mg/2 Ml Vial) 4 mg IVPUSH Q8H PRN PRN Reason: Nausea and Vomiting Pharmacy Consult (Consult Rx Perform Med Rec) 1 each MISCELLANE ONCE PRN PRN Reason: Consult order Pharmacy Consult (Consult Rx Perform Med Rec) 1 each MISCELLANE ONCE PRN PRN Reason: Consult order Sodium Chloride (0.9 % Sodium Chloride Flush 3 Ml Syringe) 3 ml IVFLUSH QSHIFT [facility] Last Admin: 05/05/22 09:23 Dose: 3 ml Documented By: MEGHAN Labs 05/05/22 06:15 05/05/22 06:15 Labs: Laboratory Results - last 24 hr 05/04/22 05/04/22 05/04/22 16:46 16:46 16:46 MCV MCH MCHC RDW Plt Count MPV Immature Gran % (Auto) Neut % (Auto) Lymph % (Auto) [place] % (Auto) Eos % (Auto) Baso % (Auto) Lymph # (Auto) [place] # (Auto) Eos # (Auto) Baso # (Auto) Abs Immat Gran (auto) Absolute Neuts (auto) Absolute Nucleated RBC Nucleated RBC % (auto) D-Dimer High Sensitivty Anion Gap Estim Creat Clear Calc Estimated GFR Random Glucose Lactic Acid Calcium Magnesium Total Bilirubin AST ALT Alkaline Phosphatase Troponin I High Sens 13.9 B-Natriuretic Peptide Total Protein Albumin Urine Color Urine Appearance Urine pH Ur Specific [place] Urine Protein Urine Glucose (UA) Urine Ketones Urine Blood Urine Nitrite Ur Leukocyte Esterase Urine RBC Urine WBC Ur Squamous Epith Cells Urine Bacteria Hyaline Casts Granular Casts COVID-19 (SURJIT) Negative COVID-19 Clin Com See Note Influenza Type A (CORI) Negative Influenza Type B (CORI) Negative Influenza A & B Note See Note 05/04/22 05/04/22 05/04/22 16:46 16:46 16:47 MCV 75.3 L MCH 24.3 L MCHC 32.2 RDW 13.1 Plt Count 103 L MPV 11.2 Immature Gran % (Auto) 0.3 Neut % (Auto) 82.8 H Lymph % (Auto) 10.1 L [place] % (Auto) 6.5 Eos % (Auto) 0.0 Baso % (Auto) 0.3 Lymph # (Auto) 0.8 L [place] # (Auto) 0.5 Eos # (Auto) 0.0 Baso # (Auto) 0.0 Abs Immat Gran (auto) 0.02 Absolute Neuts (auto) 6.4 Absolute Nucleated RBC 0.000 Nucleated RBC % (auto) 0.0 D-Dimer High Sensitivty Anion Gap Estim Creat Clear Calc Estimated GFR Random Glucose Lactic Acid Calcium Magnesium Total Bilirubin AST ALT Alkaline Phosphatase Troponin I High Sens B-Natriuretic Peptide 24 Total Protein Albumin Urine Color Yellow Urine Appearance Clear Urine pH 6.0 Ur Specific [place] 1.025 Urine Protein 100 (2+) H Urine Glucose (UA) Negative Urine Ketones 15 Urine Blood Moderate (2+) H Urine Nitrite Negative Ur Leukocyte Esterase Negative Urine RBC 0-2 Urine WBC 0-5 Ur Squamous Epith Cells 6-10 Urine Bacteria None Seen Hyaline Casts 3-5 Granular Casts Present COVID-19 (SURJIT) COVID-19 Clin Com Influenza Type A (CORI) Influenza Type B (CORI) Influenza A & B Note 05/04/22 05/04/22 05/04/22 16:47 16:47 16:47 MCV MCH MCHC RDW Plt Count MPV Immature Gran % (Auto) Neut % (Auto) Lymph % (Auto) [place] % (Auto) Eos % (Auto) Baso % (Auto) Lymph # (Auto) [place] # (Auto) Eos # (Auto) Baso # (Auto) Abs Immat Gran (auto) Absolute Neuts (auto) Absolute Nucleated RBC Nucleated RBC % (auto) D-Dimer High Sensitivty 401 Anion Gap 12 Estim Creat Clear Calc 55.4 Estimated GFR 50 Random Glucose 172 H Lactic Acid 1.2 Calcium 7.8 L Magnesium 1.9 Total Bilirubin 1.0 AST 44 H ALT 19 Alkaline Phosphatase 45 Troponin I High Sens B-Natriuretic Peptide Total Protein 6.9 Albumin 3.8 Urine Color Urine Appearance Urine pH Ur Specific [place] Urine Protein Urine Glucose (UA) Urine Ketones Urine Blood Urine Nitrite Ur Leukocyte Esterase Urine RBC Urine WBC Ur Squamous Epith Cells Urine Bacteria Hyaline Casts Granular Casts COVID-19 (SURJIT) COVID-19 Clin Com Influenza Type A (CORI) Influenza Type B (CORI) Influenza A & B Note 05/04/22 05/05/22 05/05/22 20:07 06:15 06:15 MCV 74.9 L MCH 23.8 L MCHC 31.8 RDW 13.3 Plt Count 106 L MPV 12.0 Immature Gran % (Auto) 0.2 Neut % (Auto) 77.9 H Lymph % (Auto) 14.6 L [place] % (Auto) 7.3 Eos % (Auto) 0.0 Baso % (Auto) 0.0 Lymph # (Auto) 0.8 L [place] # (Auto) 0.4 Eos # (Auto) 0.0 Baso # (Auto) 0.0 Abs Immat Gran (auto) 0.01 Absolute Neuts (auto) 4.1 Absolute Nucleated RBC 0.000 Nucleated RBC % (auto) 0.0 D-Dimer High Sensitivty Anion Gap 12 Estim Creat Clear Calc 74.7 Estimated GFR > 60 Random Glucose 147 H Lactic Acid Calcium 7.1 L D Magnesium Total Bilirubin AST ALT Alkaline Phosphatase Troponin I High Sens 12.3 B-Natriuretic Peptide Total Protein Albumin Urine Color Urine Appearance Urine pH Ur Specific [place] Urine Protein Urine Glucose (UA) Urine Ketones Urine Blood Urine Nitrite Ur Leukocyte Esterase Urine RBC Urine WBC Ur Squamous Epith Cells Urine Bacteria Hyaline Casts Granular Casts COVID-19 (SURJIT) COVID-19 Clin Com Influenza Type A (CORI) Influenza Type B (CORI) Influenza A & B Note Assessment and Plan (1) Left lower lobe pneumonia: Status: Acute (2) TOD (acute kidney injury): Status: Acute Plan This is a 66-year-old male with pertinent history of essential hypertension, mixed hyperlipidemia, obstructive sleep apnea who was sent from [facility] for evaluation of hypoxemia. #.? Sepsis- resolved -Treat pneumonia as below. -Mild tachycardia related to fever, not sepsis. No leukocytosis # acute hypoxemic respiratory failure-related to pneumonia-resolved # left lower lobe pneumonia -continue IV ceftriaxone and azithromycin daily Initiated 05/04 -Follox BC -Also obtaining sputum culture with Gram stain and Legionella antigen #.? Hyponatremia- likely hypovolemic- resolved -monitor BMP, encourage PO hydration #.? Acute kidney injury, stage I likely pre renal- resolved -encourage PO hydration, Monitor urine output -monitor bmp #.? Thrombocytopenia:? Likely in the setting of infection- stable -PLT 103. no severe sepsis #.? JOAQUINA -Not on CPAP at home #.? Mixed hyperlipidemia -continue statin #.? Essential hypertension -Resume antihypertensives DVT prophylaxis:? Lovenox 40 mg daily Full code Cardiac diet Patient requires ongoing inpatient stay for management of pneumonia with sepsis and TOD requiring IV fluids and IV antibiotics Time Spent With Patient Time: Total time managing care of this patient today ____ minutes. Quality Stroke Does the patient have a stroke diagnosis?: No VTE Prior VTE?: No VTE Risk Level:: Medical - moderate - high VTE Device Contraindication: Treatment Not Indicated VTE Drug Contraindication: N/A - Med Ordered
[2022-05-05] MEDS: cefTRIAXone sodium 1 GM in 0.9 % Sodium Chloride 50 ML IV (18:25)
[2022-05-05] MEDS: Enoxaparin Sodium 40 MG/0.4 ML SYRINGE SUBCUT (20:27)
[2022-05-05] MEDS: Azithromycin 500 MG in 0.9 % Sodium Chloride 250 ML 125 MG IV (20:30)
[2022-05-05] MEDS: guaiFENesin 100 MG/5 ML LIQUID PO (23:43)
[2022-05-06 03:18] VITALS: BP 134/65; PULSE 95; RESP 17; TEMP 36.9; O2SAT 93
[2022-05-06 07:32] LABS: MANUAL DIFF FLAG NO
[2022-05-06 07:40] LABS: Basophils Percent Auto 0.2 % (0-2); Hematocrit 33.9 % (42.0-52.0); Hemoglobin 10.9 g/dl (14.0-18.0); Imm Gran Abs Auto 0.03 X10*3/uL (0.00-0.03); Imm Gran Pct Auto 0.5 % (0.0-0.4); Lymphocytes Absolute Auto 1.1 X10*3/uL (1.2-4.9); Mean Corpuscular HGB Conc 32.2 g/dl (31.0-36.0); Mean Corpuscular Hemoglobin 24.1 pg (27.0-33.0); Mean Corpuscular Volume 74.8 fL (80.0-98.0); Mean Platelet Volume 12.3 fL (9.4-12.4); Monocytes Absolute Auto 0.4 X10*3/uL (0.1-1.2); Monocytes Percent Auto 6.1 % (2-11); Neutrophils Absolute Auto 4.8 x10*3/uL (2.0-8.3); Neutrophils Percent Auto 76.2 % (45-73); Platelet Count 117 X10*3/uL (160-400); Red Blood Count 4.53 X10*6/uL (4.60-5.80); Red Cell Distribution Width 13.4 % (11.0-16.0); White Blood Count 6.4 X10*3/uL (4.8-10.8)
[2022-05-06 07:51] LABS: Anion Gap 12 (12-20); Blood Urea Nitrogen 11 mg/dL (9-16); Calcium 7.3 mg/dL (8.4-10.2); Carbon Dioxide 27 mmol/L (22-29); Chloride 96 mmol/L (96-108); Creatinine Clr Calc Pharmacy 76.1; Estimated Glomerular Filt Rate > 60; Glucose Random 161 mg/dL (60-115); Potassium 3.6 mmol/L (3.3-5.1); Sodium 131 mmol/L (135-145)
[2022-05-06 08:00] VITALS: BP 149/65; PULSE 97; RESP 17; TEMP 37.4; O2SAT 91
[2022-05-06] MEDS: Cholecalciferol (Vitamin D3) 25 MCG TABLET PO (08:34)
[2022-05-06] MEDS: Metoprolol Succinate ER 100 MG TAB.ER.24H PO (08:34)
[2022-05-06] MEDS: Valsartan 80 MG TABLET PO (08:34)
[2022-05-06] MEDS: Atorvastatin Calcium 20 MG TABLET PO (08:34)
[2022-05-06] MEDS: amLODIPine Besylate 10 MG TABLET PO (08:35)
[2022-05-06] MEDS: hydroCHLOROthiazide 12.5 MG TABLET PO (08:35)
[2022-05-06] MEDS: Ascorbic Acid 500 MG TABLET PO (08:35)
[2022-05-06] MEDS: 0.9 % Sodium Chloride Flush 3 ML SYRINGE IVFLUSH (08:35)
[2022-05-06] MEDS: Multivitamin TABLET 1 TAB PO (08:35)
[2022-05-06] MEDS: Vitamin E (Dl,Tocopheryl Acet) 180 MG (400 UNIT) CAPSULE PO (08:35)
--- NOTE | 2022-05-06 10:03 | PM.DS ---
DS: Providers Provider Date of Service: 05/06/22 Date of admission: 05/04/22 19:47 Primary care physician: Martín Cabrera MD DS: Diagnosis Discharge Diagnosis (1) Left lower lobe pneumonia: Status: Acute (2) TOD (acute kidney injury): Status: Acute DS: Summary Hospital Course Hospital Course: Chief Complaint: Dyspnea This is a 66-year-old male with pertinent history of essential hypertension, mixed hyperlipidemia, obstructive sleep apnea who was sent from [facility] for evaluation of hypoxemia.? Patient states he went to [facility] and was told that his oxygen was low.? He has had difficulty breathing, worse with exertion.? Also been complaining of fever, chills, generalized body ache and cough.? Patient was requiring 2 L of supplemental oxygen during ambulation as per EMS.? No sick contacts.? Patient denies chest discomfort, palpitations, abdominal pain, changes in urinary or bowel habits.? No history of DVT or PE.? Does not use supplemental oxygen at home.? Does not use home CPAP for JOAQUINA. In the emergency department, patient was found to be febrile and requiring 2 L supplemental oxygen.? Imaging with left lower lobe pneumonia. Hospital course: Patient was admitted with pneumonia associated with acute hypoxic respiratory failure and also found to have TOD and hyponatremia. Pneumonia was treated with IV ceftriaxone and Azithro and is doing much better, Off O2, has some cough, no fever, WBC is within normal. Will change antibiotics to Ceftin for total of 7 days. TOD was likely due to pre renal state and has resolved following IV fluid, hyponatremia has improved from 128 to 131 now Time Spent with Patient Time attestation: Total time managing care of this patient today ____ minutes. Discharge coordination time: Greater than 30 minutes Quality: Safe Use of Opioids Does Pt have an Active Cancer Diagnosis on the Problem List?: No Quality: Stroke Does the patient have a stroke diagnosis?: No Physical Exam Vital Signs: Vital Signs: Last Vital Signs Temp 99.3 F 05/06/22 08:00 Pulse 97 05/06/22 08:00 Resp 17 05/06/22 08:00 BP 149/65 H 05/06/22 08:00 Pulse Ox 91 L 05/06/22 08:00 O2 Del Method 05/06/22 08:00 O2 Flow Rate 2 05/05/22 03:38 Oxygen Flow Rate 2 05/04/22 16:02 BMI result Body Mass Index 30.5 DS: Data Data Completed and Pending Labs on day of discharge: Laboratory Results - last 24 hr 05/06/22 05/06/22 06:42 06:42 WBC 6.4 RBC 4.53 L Hgb 10.9 L Hct 33.9 L MCV 74.8 L MCH 24.1 L MCHC 32.2 RDW 13.4 Plt Count 117 L MPV 12.3 Immature Gran % (Auto) 0.5 H Neut % (Auto) 76.2 H Lymph % (Auto) 17.0 L [place] % (Auto) 6.1 Eos % (Auto) 0.0 Baso % (Auto) 0.2 Lymph # (Auto) 1.1 L [place] # (Auto) 0.4 Eos # (Auto) 0.0 Baso # (Auto) 0.0 Abs Immat Gran (auto) 0.03 Absolute Neuts (auto) 4.8 Absolute Nucleated RBC 0.000 Nucleated RBC % (auto) 0.0 Sodium 131 L Potassium 3.6 Chloride 96 Carbon Dioxide 27 Anion Gap 12 BUN 11 Creatinine 1.06 Estim Creat Clear Calc 76.1 Estimated GFR > 60 Random Glucose 161 H Calcium 7.3 L Preliminary micro results at discharge 05/04/22 16:46 Blood Culture - Preliminary Blood - Venous No growth after 24 hours. 05/04/22 16:46 Blood Culture - Preliminary Blood - Venous No growth after 24 hours. Discharge Plan Discharge Anticipated Discharge Date/Time: 05/06/22 09:58 Patient Disposition: Home, Self-Care Discharge Diagnosis: Pneumonia, TOD, hyponatremia Referrals: Martín Cabrera MD [Primary Care Provider] - 1 Week Discharge Medications: New cefuroxime axetil 500 mg tablet 500 mg PO BID 5 Days Qty: 10 0RF dextromethorphan polistirex [Cough DM ER] 30 mg/5 mL suspension,extended rel 12 hr 10 ml PO Q12H PRN (Reason: cough) Qty: 89 0RF Continued valsartan-hydrochlorothiazide 80-12.5 mg tablet 1 tab PO DAILY vitamin A 10,000 unit Capsule 10,000 unit PO DAILY vitamin E (dl, acetate) 180 mg (400 unit) Capsule 180 mg PO DAILY garlic 200 mg Tablet 200 mg PO DAILY simvastatin 40 mg tablet 40 mg PO BEDTIME amlodipine 10 mg tablet 10 mg PO DAILY metoprolol succinate 100 mg tablet extended release 24 hr 100 mg PO DAILY multivitamin Tablet 1 tab PO DAILY ascorbate calcium (vitamin C) 500 mg tablet 500 mg PO DAILY cinnamon bark [Cinnamon] 500 mg capsule 500 mg PO DAILY cholecalciferol (vitamin D3) 25 mcg (1,000 unit) capsule 25 mcg PO DAILY Discharge Orders: Discharge Order (Routine); Ordered 05/06/22 Ordered By: Redd Garcia Diet: Advance to usual diet Activity on Discharge: As tolerated Stand Alone Forms: Patient Portal Discharge page Care Plan Goals: full recovery from pneumonia Health Concerns: pneumonia, hyponatremia, Plan of Treatment: Take Ceftin for pneumonia take Robitussin for cough follow up with your Doctor in a week Assessment: as above
--- NOTE | 2022-05-06 10:21 | MHC.CM.PN ---
PATIENT IS DC HOME - SELF CARE RN AWARE OF PLAN.
[2022-05-11 05:03] LABS: Legionella Ag Urine Not Detected (Not Detected)
== END 2022-05-06 13:16 | disposition home or self-care (01) | DRG 720 ==
LOC: HO.ED 19:33 → HO.EDOVER 19:56 → HO.S3 20:42
PROVIDERS: Physician Assistant; Admitting Provider Student in an Organized Health Care Education/Training Program; Emergency Provider Student in an Organized Health Care Education/Training Program; PCP Internal Medicine; Visit Provider Internal Medicine
DX: A41.9 Sepsis, unspecified organism (principal); J96.01 Acute respiratory failure with hypoxia; N17.9 Acute kidney failure, unspecified; J18.9 Pneumonia, unspecified organism; D69.6 Thrombocytopenia, unspecified; E87.1 Hypo-osmolality and hyponatremia; E86.0 Dehydration; E86.1 Hypovolemia; E78.2 Mixed hyperlipidemia; G47.33 Obstructive sleep apnea (adult) (pediatric); D64.9 Anemia, unspecified; I10 Essential (primary) hypertension; Z20.822 Contact with and (suspected) exposure to COVID-19; Z88.0 Allergy status to penicillin; Z79.899 Other long term (current) drug therapy
CPT/HCPCS: 36415; 71045; 71275; 80048; 80053; 81001; 81003; 83605; 83735; 83880; 84484; 85025; 85379; 87040; 87449; 87502; 87635; 93971; 99285; J0456; J0696; J1650; Q9967

== ENCOUNTER 2023-11-23 15:47 | Outpatient (REF) | payer OTHER, SELFPAY ==
[2023-11-23 18:02] LABS: MANUAL DIFF FLAG NO
[2023-11-23 18:13] LABS: Basophils Absolute Auto 0.1 X10*3/uL (0.0-0.2); Basophils Percent Auto 0.9 % (0-2); Eosinophils Absolute Auto 0.2 X10*3/uL (0.0-0.4); Eosinophils Percent Auto 3.4 % (0-4); Hematocrit 40.5 % (42.0-52.0); Hemoglobin 12.7 g/dl (14.0-18.0); Imm Gran Abs Auto 0.02 X10*3/uL (0.00-0.03); Imm Gran Pct Auto 0.4 % (0.0-0.4); Lymphocytes Percent Auto 35.1 % (20-40); Mean Corpuscular HGB Conc 31.4 g/dl (31.0-36.0); Mean Corpuscular Hemoglobin 24.2 pg (27.0-33.0); Mean Corpuscular Volume 77.3 fL (80.0-98.0); Mean Platelet Volume 11.9 fL (9.4-12.4); Monocytes Absolute Auto 0.6 X10*3/uL (0.1-1.2); Monocytes Percent Auto 11.2 % (2-11); Neutrophils Absolute Auto 2.8 x10*3/uL (2.0-8.3); Platelet Count 196 X10*3/uL (160-400); Red Blood Count 5.24 X10*6/uL (4.60-5.80); Red Cell Distribution Width 12.7 % (11.0-16.0); White Blood Count 5.6 X10*3/uL (4.8-10.8)
[2023-11-23 18:38] LABS: Alanine Aminotransferase 18 U/L (0-40); Albumin Level 4.4 g/dL (3.5-5.0); Alkaline Phosphatase 55 U/L (39-117); Anion Gap 12 (12-20); Aspartate Amino Transferase 21 U/L (5-37); Bilirubin Total 0.6 mg/dL (0.0-1.0); Blood Urea Nitrogen 15 mg/dL (9-16); Calcium 9.4 mg/dL (8.4-10.2); Carbon Dioxide 28 mmol/L (22-29); Chloride 100 mmol/L (96-108); Cholesterol 140 mg/dL (<200); Estimated Glomerular Filt Rate > 60; Glucose Random 209 mg/dL (60-115); HDL Cholesterol 39 mg/dL (>40); LDL Cholesterol Calculated 76 mg/dL (<100); Potassium 3.9 mmol/L (3.3-5.1); Sodium 136 mmol/L (135-145); Triglycerides 129 mg/dL (<150)
[2023-11-23 18:43] LABS: TSH reflex Free T4 2.13 uIU/mL (0.32-4.0)
[2023-11-24 08:20] LABS: ~HepC Num1 0.14 S/CO (0.00-0.79); ~Hepatitis C Antibody Nonreactive (Nonreactive)
== END 2023-11-23 15:48 | disposition home or self-care (01) ==
LOC: HO.CHCLDS 15:47
PROVIDERS: Visit Provider Internal Medicine
DX: E11.22 Type 2 diabetes mellitus with diabetic chronic kidney disease (principal); N18.31 Chronic kidney disease, stage 3a
CPT/HCPCS: 36415; 80053; 80061; 84443; 85025; 86803

== ENCOUNTER 2024-05-29 16:06 | Outpatient (REF) | payer SELFPAY ==
[2024-05-29 18:04] LABS: MANUAL DIFF FLAG NO
[2024-05-29 18:11] LABS: Basophils Percent Auto 0.4 % (0-2); Eosinophils Absolute Auto 0.1 X10*3/uL (0.0-0.4); Eosinophils Percent Auto 0.8 % (0-4); Hematocrit 42.3 % (42.0-52.0); Imm Gran Abs Auto 0.01 X10*3/uL (0.00-0.03); Imm Gran Pct Auto 0.1 % (0.0-0.4); Lymphocytes Absolute Auto 2.3 X10*3/uL (1.2-4.9); Lymphocytes Percent Auto 30.1 % (20-40); Mean Corpuscular HGB Conc 30.7 g/dl (31.0-36.0); Mean Corpuscular Hemoglobin 23.9 pg (27.0-33.0); Mean Corpuscular Volume 77.9 fL (80.0-98.0); Mean Platelet Volume 11.7 fL (9.4-12.4); Monocytes Absolute Auto 0.7 X10*3/uL (0.1-1.2); Monocytes Percent Auto 8.9 % (2-11); Neutrophils Absolute Auto 4.5 x10*3/uL (2.0-8.3); Neutrophils Percent Auto 59.7 % (45-73); Platelet Count 179 X10*3/uL (160-400); Red Blood Count 5.43 X10*6/uL (4.60-5.80); Red Cell Distribution Width 13.2 % (11.0-16.0); White Blood Count 7.6 X10*3/uL (4.8-10.8)
[2024-05-29 18:31] LABS: Alanine Aminotransferase 23 U/L (0-40); Albumin Level 4.7 g/dL (3.5-5.0); Alkaline Phosphatase 60 U/L (39-117); Anion Gap 15 (12-20); Aspartate Amino Transferase 27 U/L (5-37); Bilirubin Total 0.8 mg/dL (0.0-1.0); Blood Urea Nitrogen 19 mg/dL (9-16); Calcium 9.6 mg/dL (8.4-10.2); Carbon Dioxide 27 mmol/L (22-29); Chloride 101 mmol/L (96-108); Estimated Glomerular Filt Rate > 60; Glucose Random 132 mg/dL (60-115); Potassium 3.8 mmol/L (3.3-5.1); Sodium 139 mmol/L (135-145); Total Protein 8.7 g/dL (6.5-8.0)
[2024-05-29 18:46] LABS: TSH reflex Free T4 2.06 uIU/mL (0.32-4.0)
--- OUTSIDE RECORDS SUMMARY | 2024-05-29 19:38 | XMS_ITS | Encounter Summary ---
Author Organization [employer] Address [address] [place] [address] [address] [place] [address] Care Team Providers Care Loan Interviewer Name Role Phone Martín Cabrera MD Primary Care Provider [phone] Radha Dawson PharmD Unavailable [phone] Reason for Visit * Reason Comments Med Refill Encounter Details Date Type Department Care Team ([facility] st Contact Info) Description 12/27/2023 Refill [facility] MED & PEDS [address] [place], [place] [phone] Martín Cabrera MD [address] [place] [address] Essential hypertension Social History Tobacco Use Types Packs/Day Years Used Date Smoking Tobacco: Never Passive Smoke Exposure: Never Smokeless Tobacco: Never Alcohol Use Standard Drinks/Week Comments Not Currently 0 (1 standard drink = 0.6 oz pur e alcohol) Housing Stability Answer Date Recorded What is your housing situation today? I have doreen cavanaugh 01/30/[address] you li ve. Do you have problems with any of the following? None of the above 01/30/2023 Food Insecurity Answer Date Recorded Within the past 12 months, y ou worried that your food would run out before you got money to buy more: Never True 01/30/2023 Within the past 12 months,th e food you bought just didn't last and you didn't have enough money to get more: Never True Transportation Answer Date Recorded In the past 12 months, has l ack of transportation kept you from medical appts, meetings, work or from getting things needed for daily living? No 01/30/2023 Utilities Answer Date Recorded In the past 12 months, has t he electric, gas, oil or water company threatened to shut off services in your home? No 01/30/2023 Sex and Gender Information Value Date Recorded Sex Assigned at Male 02/01/2022 10:19 AM EDT Legal Sex Male 10:19 AM EDT Gender Identity Male 02/01/2022 10:19 AM EDT Sexual Orientation Straight 02/01/2022 10 :19 AM EDT documented as of this encounter Plan of Treatment Upcoming Encounters Date Type Department Care Team (Late st Contact Info) Description 06/07/2024 3:00 PM EST Medication Management [facility] MED & PEDS [address] [place] [address] Radha Dawson PharmD [address] [place] [address] documented as of this encounter Visit Diagnoses Diagnosis Essential hypertension Unspecified essential hypertension documented in this encounter Care Teams Loan Interviewer Relationship Specialty Start Date End Date Martín Cabrera MD [address] [place] [address] PCP - General Internal Medicine 12/27/12 Radha Dawson PharmD [address] [place] [address] Pharmacist Internal Medicine 05/24/24 documented as of this encounter
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
--- OUTSIDE RECORDS SUMMARY | 2024-05-29 19:38 | XMS_ITS | Encounter Summary ---
Author Organization [employer] Address [address] [place] [address] [address] [place] [address] Care Team Providers Care Managing Partner [employer] Name Role Phone Martín Cabrera MD Primary Care Provider [phone] Reason for Visit * Reason Onset Date Comments Med Refill 05/07/2024 Encounter Details Date Type Department Care Team ([facility] st Contact Info) Description 05/07/2024 Refill [facility] MED & PEDS [address] [place] [address] Martín Cabrera MD [address] [place] [address] Primary hypertension Social History Tobacco Use Types Packs/Day Years Used Date Smoking Tobacco: Never Passive Smoke Exposure: Never Smokeless Tobacco: Never Alcohol Use Standard Drinks/Week Comments Not Currently 0 (1 standard drink = 0.6 oz pur e alcohol) Housing Stability Answer Date Recorded What is your housing situation today? I have doreen cavanaugh 05/15/[address] you li ve. Do you have problems with any of the following? None of the above 05/15/2024 Food Insecurity Answer Date Recorded Within the past 12 months, y ou worried that your food would run out before you got money to buy more: Never True 05/15/2024 Within the past 12 months,th e food you bought just didn't last and you didn't have enough money to get more: Never True 02/2025 Transportation Answer Date Recorded In the past 12 months, has l ack of transportation kept you from medical appts, meetings, work or from getting things needed for daily living? No 05/15/2024 Utilities Answer Date Recorded In the past 12 months, has t he electric, gas, oil or water company threatened to shut off services in your home? No 05/15/2024 Internet Access Answer Date Recorded Internet Access Q1 Yes 05/15/2024 Internet Access Q2 Not on file 05/15/2024 Sex and Gender Information Value Date Recorded Sex Assigned at Male 02/01/2022 10:19 AM EDT Legal Sex Male 10:19 AM EDT Gender Identity Male 02/01/2022 10:19 AM EDT Sexual Orientation Straight 02/01/2022 10 :19 AM EDT documented as of this encounter Plan of Treatment Upcoming Encounters Date Type Department Care Team (Late st Contact Info) Description 06/07/2024 3:00 PM EST Medication Management [facility] MED [facility] PEDS [address], [place] [phone] Radha Dawson, PharmD [address] [place] [address] documented as of this encounter Visit Diagnoses Diagnosis Primary hypertension Unspecified essential hypertension documented in this encounter Care Teams Managing Partner [employer] Relationship Specialty Start Date End Date Martín Cabrera MD [address] [place], [place] [phone] PCP - General Internal Medicine 12/27/12 documented as of this encounter
--- OUTSIDE RECORDS SUMMARY | 2024-05-29 19:38 | XMS_ITS | Encounter Summary ---
Author Organization [employer] Address [address] [facility] 7 [place] [address] Care Team Providers Care Claims Correspondence Clerk Name Role Phone Martín Cabrera MD Primary Care Provider [phone] Reason for Visit * Reason Comments Pre-visit Planning SDOH screening negat kaye and Tobacco screening negative Encounter Details Date Type Department Care Team (Late st Contact Info) Description 05/15/2024 Patient Outreach [facility] MEDICINE [address] [place] [address] Martín Cabrera MD [address] [place] [id number] Pre-visit Planning (SDOH screening negative and Tobacco screening negative) Social History Tobacco Use Types Packs/Day Years [...] AM EDT documented as of this encounter Progress Notes * Clemente Whitney - 05/15/2024 2:55 PM EST CC Clemente Diaz placed successful outbound call to patient for pre-visit planning. Patient name and confirmed. Patient confirms appt date and time, and has transportation arrangements. Biggest concern for appointment at this time is high blood sugars and blood pressure but asymptomatic . Patient educated on extended clinic hours on Mondays and Wednesdays, and Walk-In Urgent Care Located in [facility]. Patient provided with after-hours line for [facility], , which offer night time triageservice and option to transfer to special education associate provider if needed. Patient advised to bring to appointment a photo id and insurance card. Appropriate screenings completed in anticipation of appointment. documented in this encounter Plan of Treatment Upcoming Encounters Date Type Department Care Team (Late st Contact Info) Description 06/07/2024 3:00 PM EST Medication Management [facility] MED & PEDS [address] [place] [address] Radha Dawson, PericoD [address] [place] [address] documented as of this encounter Visit Diagnoses Not on filedocumented in this encounter Care Teams Claims Correspondence Clerk Relationship Specialty Start Date End Date Martín Cabrera MD [address] [place] [address] PCP - General Internal Medicine 12/27/12 documented as of this encounter
--- OUTSIDE RECORDS SUMMARY | 2024-05-29 19:38 | XMS_ITS | Encounter Summary ---
Author Organization [employer] Address [address] [facility] 7 [place] [address] Care Team Providers Care Supervisor [employer] Name Role Phone Martín Cabrera MD Primary Care Provider [phone] Radha Dawson PharmD Unavailable [phone] Encounter Details Date Type Department Care Team ([facility] st Contact Info) Description 01/02/2024 Orders Only [facility] MED & PEDS [address] [place], [place] [phone] Martín Cabrera MD [address] [place] [address] Primary hypertension (Primary Dx) Social History Tobacco Use Types Packs/Day Years [...] Description 06/07/2024 3:00 PM EST Medication Management [facility] MED & PEDS [address] [place] [address] Radha Dawson PharmD [address] [place] [address] documented as of this encounter Visit Diagnoses Diagnosis Primary hypertension- Primary Unspecified essential hypertension documented in this encounter Care Teams Supervisor [employer] Treatment [employer] Relationship Specialty Start Date End Date Martín Cabrera MD [address] [place] [address] PCP - General Internal Medicine 12/27/12 Radha Dawson PharmD [address] [place] [address] Pharmacist Internal Medicine 05/24/24 documented as of this encounter
--- OUTSIDE RECORDS SUMMARY | 2024-05-29 19:38 | XMS_ITS | Encounter Summary ---
Author Organization [employer] Address [address] [facility] 7t [place] [address] Care Team Providers Care Occupational Therapy Department Chair Name Role Phone Martín Cabrera MD Primary Care Provider [phone] Encounter Details Date Type Department Care Team ([facility] st Contact Info) Description 05/02/2024 Telephone [facility] MED & PEDS [address] [place], [place] [phone] Radha Dawson, PharmD [address] [place] [address] Social History Tobacco Use Types Packs/Day Years [...] AM EDT documented as of this encounter Miscellaneous Notes * Telephone Encounter - Radha Dawson PharmD - 05/02/2024 9:34 AM EST Hello, this patient has an A1c = 10% and would benefit from the pharmacy CDTM program. Please send a referral for CDTM - Diabetes E11.9. Thank you! documented in this encounter Plan of Treatment Upcoming Encounters Date Type Department Care Team (Late st Contact Info) Description 06/07/2024 3:00 PM EST Medication Management [facility] MED & PEDS [address] [place] [address] Radha Dawson, Yen [address] [place] [address] documented as of this encounter Visit Diagnoses Not on filedocumented in this encounter Care Teams Occupational Therapy Department Chair Relationship Specialty Start Date End Date Martín Cabrera MD [address] [place] [address] PCP - General Internal Medicine 12/27/12 documented as of this encounter
--- OUTSIDE RECORDS SUMMARY | 2024-05-29 19:38 | XMS_ITS | Encounter Summary ---
Author Organization [employer] [facility] Address [address] [facility] 7 [place] [address] Care Team Providers Care Spring Assembler Supervisor Name Role Phone Martín Cabrera MD Primary Care Provider [phone] Radha Dawson PharmD Unavailable [phone] Reason for Visit * Consultation (Routine) - Pending Review Specialty Diagnoses / Procedures Referred By Contac t Referred To Contact Pharmacy Diagnoses Type 2 diabetes mellitus with stage 3a chronic kidney disease, without long-term current use of insulin (CMS/HCC) Martín Cabrera MD [address] [place] [address] Phone: tel: fax: Referral ID Status Reason Start Date Expiration Date Visits Requested Visits Authorized [id number] Pending Review Consult and Treat 05/02/2024 05/02/2025 6 6 Encounter Details Date Type Department Care Team ([facility] st Contact Info) Description 05/24/2024 2:30 PM EST Telemedicine [facility] MED & PEDS [address] [place] [address] Radha Dawson, PharmD [address] [place] [address] Type 2 diabetes mellitus with stage 3a chronic kidney disease, without long-term current use of insulin (CMS/HCC) (Primary Dx) Social History Tobacco Use Types Packs/Day Years Used Date Smoking Tobacco: Never Passive Smoke Exposure: Never Smokeless Tobacco: Never Alcohol Use Standard Drinks/Week Comments Not Currently 0 (1 standard drink = 0.6 oz pur e alcohol) Housing Stability Answer Date Recorded What is your housing situation today? I have doreen sing 05/15/[address] you li [...] as of this encounter Progress Notes * Radha Dawson PharmD - 05/24/2024 2:30 PM EST Pharmacy Consult Visit Type: CDTM Pharmacist: Radha Dawson PharmD Akil Wilkins is a 68 y.o. year old patient here for new patient visit completed over the phone. Subjective History: General / Intake (updated 05/24/24) Allergies: is allergic to penicillins. Read/Write: Yes, in [place] Recent Hospitalizations: No Social History as reported by patient: Tobacco: Denies Alcohol: Denies Caffeine: Current, coffee, 3 cup(s)/day Artificial sweetener and cream Illicit drugs: Denies Diet: Eggs, oatmeal, wheat bread, juice zero sugar Usually skips lunch Rice, beans, meat Likes spinach, lettuce, tomato Exercise: wants to join a gym, currently no Adherence / patient self-management Takes from vials, manages medications independently Denies missed doses ( never ) Refill history demonstrates non-adherence to most medications OTC medication, vitamin, supplement use: reports cinnamon and apple cider vinegar Type 2 Diabetes Last DM visit 11/23/23 New testing supplies sent as pt was not checking BS Pt admitted poor compliance to diet and medications, no changes made Patient endorsed not taking care of myself , stressed in ; reports having since retired and is trying to relax, eat better Pertinent negatives include polyuria, polydipsia, blurred vision SMBG: Freestyle Lite Denies currently checking, tired of it Expressed frustration with pricking fingers and wants CGM. Understands not currently being a candidate due to not using insulin and not having problematic hypoglycemia. Hypertension Last HTN visit 11/23/23 Valsartan increased Patient questions if metoprolol was discontinued. Reports not taking it for 3 months because it wasnot getting refilled. Patient informed it is currently filled at the pharmacy. Pertinent negatives include chest pain, headache, blurry vision, dizziness Reports checking blood pressure at home and that they are stable . Asked patient to check during visit, and patient reports having recently moved and does not have the BP monitor readily available. Hyperlipidemia The 10-year ASCVD risk score (Valerie DK, et al., 2019) is: 38.4% Values used to calculate the score: Age: 68 years Sex: Male Is Non- : No Diabetic: Yes Tobacco smoker: No Systolic Blood Pressure: 159 mmHg Is BP treated: Yes HDL Cholesterol: 39 mg/dL Total Cholesterol: 140 mg/dL Objective History: Treatment history/considerations: PMH: HTN, T2DM, hyperlipidemia, anxiety, depression Medication: n/a Recent labs: A1c: due Albumin/creatinine ratio: due Vit B12 (if on metformin): due Metformin package insert recommends monitoring every 2-3 yrs. Lab Results Component Value Date ALT 18 11/23/2023 AST 21 11/23/2023 LDLCHOLCAL 76 11/23/2023 TRIG 129 11/23/2023 K 3.9 11/23/2023 NA 136 11/23/2023 CREATININE 1.18 11/23/2023 EGFR >60 11/23/2023 HGBA1C 10.0 (A) 11/23/2023 HGBA1C 9.2 (A) 06/08/2022 HGBA1C 9.2 (A) 05/12/2022 CrCl (AdjBW)= 64 mL/min Recent blood pressure readings: BP Readings from Last 4 Encounters: 11/23/23 (!) 159/92 12/07/22 (!) 154/95 06/08/22 (!) 156/96 05/12/22 (!) 142/92 Pulse Readings from Last 4 Encounters: 11/23/23 67 12/07/22 71 06/08/22 66 05/12/22 70 Immunizations Due: COVID-19, Influenza (annual), and PCV20 Offer next visit Preferred Pharmacy: [facility] - [address] [phone] Assessment/Plan: Type 2 Diabetes Pharmacologic Therapy: Metformin 500mg twice daily Additional recommendations per ADA: On aspirin: No On statin: Yes, moderate intensity On ACEI/ARB: Yes Dental Exam in the past 6 mo: Unknown Eye Exam in the past 12 mo: Unknown Goals of Therapy per the ADA Standards of Medical Care in Diabetes Achieve A1c of < 7.0% while also minimizing episodes of hypoglycemia Plan: Patient advised to check blood sugar a few times per week if unwilling to check daily. Patient agreed to check at least twice before next PCP visit on 05/29. Check A1c next visit to determine if changes to medication regimen are warranted. Patient to follow up in CDTM in 2 weeks (in person) for next steps. Education: Healthy diet and lifestyle. Discussed role of A1c monitoring, A1c and SMBG goals Reviewed risks of macro- and microvascular complications of uncontrolled DM. Reviewed signs, symptoms and treatments of hypoglycemia to which patient confirmed understanding. Hypertension Pharmacotherapy: Amlodipine 10mg daily Metoprolol succinate 100mg daily Valsartan-hydrochlorothiazide 160-12.5mg daily Goals of Therapy per JNC 8: Achieve BP <140/90mmHg Plan: Patient instructed to continue metoprolol as it is still active on the medication list. BP was above goal and HR within range when patient was last taking this med (11/23/23). Advised cutting in half to ensure tolerability before increasing to full tablet of 100mg. Metoprolol succinate tablets are scored, patient advised to only cut along the scored line due to extended release mechanism. Check BP next visit to determine if changes to medication regimen are warranted. Patient to follow up in CDTM in 2 weeks (in person) for next steps. Education: Counseling provided to [facility] daily & log results for review in follow up. Reviewed BP goals, patient instructed to call if extremes of BP are noted prior to next scheduled visit. documented in this encounter Plan of Treatment Upcoming Encounters Date Type Department Care Team (Late st Contact Info) Description 06/07/2024 3:00 PM EST Medication Management [facility] MED & PEDS [address] [place] [address] Radha Dawson PharmD [address] [place], [place] [phone] Scheduled Referrals Name Type Priority Associated Diagnoses Orde r Schedule Referral to Pharmacy CDTM Outpatient Referral Routine Type 2 diabetes mellitus with stage 3a chronic kidney disease, without long-term current use of insulin ([facility]) Ordered: 05/02/2024 documented as of this encounter Visit Diagnoses Diagnosis Type 2 diabetes mellitus with stage 3a chronic kidney disease, without long-term current use of insulin ([facility])- Primary documented in this encounter Care Teams Spring Assembler Supervisor Relationship Specialty Start Date End Date Martín Cabrera MD [address] [place] [address] PCP - General Internal Medicine 12/27/12 Radha Dawson PharmD [address] [place] [address] Pharmacist Internal Medicine 05/24/24 documented as of this encounter
--- OUTSIDE RECORDS SUMMARY | 2024-05-29 19:38 | XMS_ITS | Encounter Summary ---
Author Organization [facility] Address [address] [place] [address] [facility] [place] [address] Care Team Providers Care Mental Health Professional Name Role Phone Martín Cabrera MD Primary Care Provider [phone] Radha Dawson PharmD Unavailable [phone] Reason for Referral * Consultation (Routine) - Authorized Specialty Diagnoses / Procedures Referred By Contanabela t Referred To Contact Pharmacy Diagnoses Type 2 diabetes mellitus with stage 3a chronic kidney disease, without long-term current use of insulin (CMS/HCC) Primary hypertension Martín Cabrera MD [address] [place] [address] Phone: tel: fax: Referral ID Status Reason Start Date Expiration Date Visits Requested Visits Authorized [id number] Authorized Consult and Treat 05/29/2024 05/29/2025 6 6 Encounter Details Date Type Department Care Team (Late st Contact Info) Description 05/29/2024 3:30 PM EST Office Visit [facility] [address] [place] [address] Martín Cabrera MD [address] [place] [address] Type 2 diabetes mellitus with stage 3a chronic kidney disease, without long-term current use of insulin (CMS/HCC) (Primary Dx); Mixed hyperlipidemia; Primary hypertension; Screening for colon cancer; Encounter for immunization Social History Tobacco Use Types Packs/Day Years Used Date Smoking Tobacco: Never Passive Smoke Exposure: Never Smokeless Tobacco: Never Alcohol Use Standard Drinks/Week Comments Not Currently 0 (1 standard drink = 0.6 oz pur e alcohol) Depression Answer Date Recorded Patient Health Questionnaire-9 Score 2 05/29/2024 Patient Health Questionnaire-9 Score 2 05/29/2024 Last PHQ-9: Questionnaire Data Not on file 0 05/29/2024 Housing Stability Answer Date Recorded What is [...] off services in your home? No 05/15/2024 Depression Answer Date Recorded Patient Health Questionnaire-2 Score 0 05/29/2024 Internet Access Answer Date Recorded Internet Access Q1 Yes 05/15/2024 Internet Access Q2 Not on file 05/15/2024 Sex and Gender Information Value Date Recorded Sex Assigned at Male 02/01/2022 10:19 AM EDT Legal Sex Male 10:19 AM EDT Gender Identity Male 02/01/2022 10:19 AM EDT Sexual Orientation Straight 02/01/2022 10 :19 AM EDT documented as of this encounter Last Filed Vital Signs Vital Sign Reading Time Taken Comments Blood Pressure 161/95 05/29/2024 3:42 PM EST Pulse 97 05/29/2024 3:42 PM EST Temperature 36.7 ??C (98 ??F) 05/29/2024 3:42 PM EST Respiratory Rate 20 05/29/2024 3:42 PM EST Oxygen Saturation 98% 05/29/2024 3:42 PM EST Inhaled Oxygen Concentration - - Weight 83.5 kg (184 lb) 05/29/2024 3:42 PM EST Height 170 cm (5' 6.93 ) 05/29/2024 3:42 PM EST Body Mass Index 28.88 05/29/2024 3:42 PM EST documented in this encounter Progress Notes * Martín Cabrera MD - 05/29/2024 3:30 PM EST Subjective Patient ID: Akil Wilkins is a 68 y.o. male who presents for No chief complaint on file.. HPI Patient with history of diabetes and hypertension. 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 Patient is here requesting to get some blood work to assess if his blood sugar is still high. Denies any acute events since the last office visit. He has been off his metoprolol for several months. Just got his metoprolol refilled. Patient Active Problem List Diagnosis Anxiety Depressive disorder Diabetes mellitus ([facility]) Hyperlipidemia Hypertension Hospital discharge follow-up Rash Allergies Allergen Reactions Penicillins Current Outpatient Medications on File Prior to Visit Medication Sig Dispense Refill Alcohol Swabs 70 % pads Use to test blood sugar 2 times daily 100 each 11 amLODIPine (Norvasc) 10 MG tablet TAKE ONE TABLET EVERY MORNING 90 tablet 0 ascorbic acid (Vitamin C) 1000 MG tablet Take 1 tablet by mouth 3 times daily. Blood Glucose Monitoring Suppl (FreeStyle [place] Lite) w/Device kit Use to test blood sugar 2 times daily 1 kit 0 cholecalciferol (Vitamin D-3) 25 MCG (1000 UT) capsule Take 1 capsule by mouth 1 (one) time each day. cinnamon 500 MG capsule Take 1 capsule by mouth in the morning. FREESTYLE LITE test strip Use to test blood sugar 2 times daily 100 each 12 Lancets misc Use to test blood sugar 2 times daily 100 each 0 metFORMIN (Glucophage) 500 MG tablet Take 1 tablet (500 mg) by mouth with breakfast and with evening meal. 60 tablet 11 metoprolol succinate XL (Toprol-XL) 100 MG 24 hr tablet Take 1 tablet (100 mg) by mouth Once per day. Do not crush or chew. 30 tablet 11 Multiple Vitamins-Minerals (Centrum Adults) tablet Take 1 tablet by mouth 1 (one) time each day. With food simvastatin (Zocor) 40 MG tablet Take 1 tablet (40 mg) by mouth Once per day. 30 tablet 5 traZODone (Desyrel) 50 MG tablet Take 1 tablet (50 mg) by mouth at bedtime. 30 tablet 3 triamcinolone (Kenalog) 0.1 % cream Apply topically if needed in the morning and at bedtime (pain and swelling). 30 g 2 valsartan-hydroCHLOROthiazide (Diovan HCT) 160-12.5 MG tablet Take 1 tablet by mouth Once per day. 30 tablet 11 [DISCONTINUED] aspirin 81 MG chewable tablet Chew 1 tablet 1 (one) time each day. [DISCONTINUED] dextromethorphan (Delsym) 30 MG/5ML liquid TAKE 10 ML BY MOUTH EVERY 12 HOURS NEEDED FOR COUGH [DISCONTINUED] glucose blood (FREESTYLE LITE) test strip every 12 (twelve) hours. Use to test bloodglucose twice a day [DISCONTINUED] zolpidem (Ambien) 10 MG tablet Take 1 tablet (10 mg) by mouth if needed at bedtime for sleep for up to 2 days. 1 tab one hour prior to the sleep study. 2 tablet 0 No current facility-administered medications on file prior to visit. Review of Systems Constitutional: Negative for activity change, appetite change, chills and diaphoresis. HENT: Negative for dental problem, drooling and ear discharge. Eyes: Negative for pain and itching. Respiratory: Negative for cough, choking and chest tightness. Cardiovascular: Negative for palpitations and leg swelling. Gastrointestinal: Negative for abdominal pain, anal bleeding and blood in stool. Endocrine: Negative for cold intolerance and heat intolerance. Genitourinary: Negative for flank pain, frequency and genital sores. Musculoskeletal: Negative for back pain. Neurological: Negative for light-headedness, numbness and headaches. Psychiatric/Behavioral: Negative for agitation, confusion and decreased concentration. Objective Physical Exam Constitutional: General: He is not in acute distress. Appearance: Normal appearance. He is not ill-appearing or diaphoretic. Cardiovascular: Rate and Rhythm: Normal rate and regular rhythm. Heart sounds: No murmur heard. Pulmonary: Effort: Pulmonary effort is normal. No respiratory distress. Breath sounds: No stridor. No wheezing or rhonchi. Neurological: General: No focal deficit present. Mental Status: He is alert. Psychiatric: Mood and Affect: Mood normal. Assessment/Plan Diagnoses and all orders for this visit: Type 2 diabetes mellitus with stage 3a chronic kidney disease, without long-term current use of insulin (CMS/HCC) Comments: Uncontrolled due to poor compliance to medication and diet Compliance to medication recommended Low-carb diet and regular exercise recommended Orders: - POCT Glucose - POCT HGB A1C - CBC auto differential; Future - Comprehensive Metabolic Panel; Future - TSH W/Reflex to FT4; Future - Referral to Pharmacy CDTM Mixed hyperlipidemia Comments: No change in medication Compliance to medication and diet recommended Primary hypertension Comments: Uncontrolled Diovan dose adjusted Resume metoprolol BP check at home. Keep the log for the next visit. Orders: - valsartan-hydroCHLOROthiazide (Diovan HCT) 320-12.5 MG tablet; Take 1 tablet by mouth Once per day. - Referral to Pharmacy CDTM Screening for colon cancer - Cologuard?? colon cancer screening; Future Encounter for immunization - FLU VACCINE TRIVALENT (Fluarix) 6 mo + - PCV-20 VACCINE 6 wks + documented in this encounter Plan of Treatment Upcoming Encounters Date Type Department Care Team (Late st Contact Info) Description 06/07/2024 3:00 PM EST Medication Management [facility] MED & PEDS [address] [place] [address] Radha Dawson, PharmD [address] [place] [address] Scheduled Orders Name Type Priority Associated Diagnoses Orde r Schedule Cologuard?? colon cancer screening Lab Routine Screening for colon cancer Expected: 05/29/2024 (Approximate), Expires: 05/29/2025 Scheduled Referrals Name Type Priority Associated Diagnoses Orde r Schedule Referral to Pharmacy CDTM Outpatient Referral Routine Type 2 diabetes mellitus with stage 3a chronic kidney disease, without long-term current use of insulin (CMS/HCC) Primary hypertension Ordered: 05/29/2024 documented as of this encounter Procedures Procedure Name Priority Date/Time Associated Diagnosis Comments TSH W/REFLEX TO FT4 Routine 05/29/2024 4 :08 PM EST Type 2 diabetes mellitus with stage 3a chronic kidney disease, without long-term current use of insulin (CMS/HCC) CBC WITH AUTO DIFFERENTIAL Routine 05/29/2024 4:08 PM EST Type 2 diabetes mellitus with stage 3a chronic kidney disease, without long-term current use of insulin ([facility]) COMPREHENSIVE METABOLIC PANEL Routine 05/29/2024 4:08 PM EST Type 2 diabetes mellitus with stage 3a chronic kidney disease, without long-term current use of insulin ([facility]) POCT GLUCOSE Routine 05/29/2024 3:57 PM EST Type 2 diabetes mellitus with stage 3a chronic kidney disease, without long-term current use of insulin ([facility]) POCT GLYCATED HEMOGLOBIN, TOTAL Routine 05/29/2024 3:55 PM EST Type 2 diabetes mellitus with stage 3a chronic kidney disease, without long-term current use of insulin ([facility]) documented in this encounter Results * TSH W/Reflex to FT4 (05/29/2024 4:08 PM EST) TSH reflex Free T4 2.06 0.32 - 4.0 uIU/mL [facility] Blood Venous blood specimen / Unknown 05/29/2024 4:08 PM EST 05/29/2024 6:02 PM EST us Martín Cabrera MD LAB BLOOD ORDERABLES Final Result [facility] [address] [place] [address] [phone] * (ABNORMAL) Comprehensive Metabolic Panel (05/29/2024 4:08 PM EST) Sodium 139 135 - 145 mmol/L [facility] Potassium 3.8 3.3 - 5.1 mmol/L [facility] Chloride 101 96 - 108 mmol/L [facility] Carbon Dioxide 27 22 - 29 mmol/L [facility] Anion Gap 15 12 - 20 [facility] Urea Nitrogen (BUN) 19(H) 9 - 16 mg/dL [facility] Creatinine, Serum 1.04 0.5 - 1.4 mg/dL [facility] Estimated Glomerular Filt Rate >60 [facility] Comment:Chronic Kidney Disea se: Estimated GFR < 60 mL/min/1.14x6Gdcjpl Kidney Disease: Estimated GFR < 15 mL/min/1.73m2 Glucose 132(H) 60 - 115 mg/dL [facility] Calcium 9.6 8.4 - 10.2 mg/dL [facility] Bilirubin, Total 0.8 0.0 - 1.0 mg/dL [facility] Aspartate Amino Transferase 27 5 - 37 U/L [facility] Alanine Aminotransferase 23 0 - 40 U/L [facility] Total Protein 8.7(H) 6.5 - 8.0 g/dL [facility] Albumin Level 4.7 3.5 - 5.0 g/dL [facility] Alkaline Phosphatase 60 39 - 117 U/L [facility] Blood Venous blood specimen / Unknown 05/29/2024 4:08 PM EST 05/29/2024 6:02 PM EST us Martín Cabrera MD LAB BLOOD ORDERABLES Final Result [facility] [address] [place] [address] [phone] * (ABNORMAL) CBC auto differential (05/29/2024 4:08 PM EST) White Blood Count 7.6 4.8 - 10.8 X10*3/uL [facility] Red Blood Count 5.43 4.60 - 5.80 X10*6/uL [facility] Hemoglobin 13.0(L) 14.0 - 18.0 g/dl [facility] Hematocrit 42.3 42.0 - 52.0 % [facility] Mean Corpuscular Volume 77.9(L) 80.0 - 98.0 fL [facility] Mean Corpuscular Hemoglobin 23.9(L) 27.0 - 33.0 pg [facility] Mean Corpuscular HGB Conc 30.7(L) 31.0 - 36.0 g/dl [facility] Red Cell Distribution Width 13.2 11.0 - 16.0 % [facility] Platelet Count 179 160 - 400 X10*3/uL [facility] Mean Platelet Volume 11.7 9.4 - 12.4 fL [facility] Neutrophils Percent Auto 59.7 45 - 73 % [facility] Imm Gran Pct Auto 0.1 0.0 - 0.4 % [facility] Lymphocytes Percent Auto 30.1 20 - 40 % [facility] Monocytes Percent Auto 8.9 2 - 11 % [facility] Eosinophils Percent Auto 0.8 0 - 4 % [facility] Basophils Percent Auto 0.4 0 - 2 % [facility] NRBC Pct Auto 0.0 0.0 - 0.2 /100WBC [facility] Neutrophils Absolute Auto 4.5 2.0 - 8.3 x10*3/uL [facility] Imm Gran Abs Auto 0.01 0.00 - 0.03 X10*3/uL [facility] Lymphocytes Absolute Auto 2.3 1.2 - 4.9 X10*3/uL [facility] Monocytes Absolute Auto 0.7 0.1 - 1.2 X10*3/uL [facility] Eosinophils Absolute Auto 0.1 0.0 - 0.4 X10*3/uL [facility] Basophils Absolute Auto 0.0 0.0 - 0.2 X10*3/uL [facility] NRBC Abs Auto 0.000 0.0 - 0.012 X10*3/uL [facility] Blood Venous blood specimen / Unknown 05/29/2024 4:08 PM EST 05/29/2024 6:02 PM EST us Martín Cabrera MD LAB BLOOD ORDERABLES Final Result [facility] [address] [place] [address] [phone] * POCT Glucose (05/29/2024 3:57 PM EST) Glucose Blood, POC 137 60 - 200 mg/dL [employer] Media Lot # [id number] Lot# Expiration Date 732,025 Comment:random Blood Capillary blood specimen / Unknown 05/29/2024 3:57 PM EST Martín Cabrera MD POINT OF CARE TEST ENTER/ED IT ORDERABLES Final Result * (ABNORMAL) POCT HGB A1C (05/29/2024 3:55 PM EST) Hemoglobin A1C 9.2(A) 4.0 - 6.0 % QC Media Lot # [id number] Lot# Expiration Date ,026 Blood 05/29/2024 3:55 PM EST Martín Cabrera MD POINT OF CARE TEST ENTER/ED IT ORDERABLES Final Result documented in this encounter Visit Diagnoses Diagnosis Type 2 diabetes mellitus with stage 3a chronic kidney disease, without long-term current use of insulin ([facility])- Primary Mixed hyperlipidemia Primary hypertension Unspecified essential hypertension Screening for colon cancer Special screening for malignant neoplasms, colon Encounter for immunization documented in this encounter Additional Health Concerns Assessment Noted Time PHQ-9 Depression Total Score: 2 05/29/19 4:27 PM EST documented as of this encounter Care Teams Mental Health Professional Relationship Specialty Start Date End Date Martín Cabrera MD [address] [place] [address] PCP - General Internal Medicine 12/27/12 Radha Dawson PharmD [address] [place] [address] Pharmacist Internal Medicine 05/24/24 documented as of this encounter
--- OUTSIDE RECORDS SUMMARY | 2024-05-29 19:38 | XMS_ITS | Encounter Summary ---
Author Organization [employer] Address [address] [facility] 7 [place] [address] Care Team Providers Care Cutter Barrel Drum Name Role Phone Martín Cabrera MD Primary Care Provider [phone] Radha Dawson PharmD Unavailable [phone] Reason for Visit * Reason Comments Med Refill Encounter Details Date Type Department Care Team ([facility] st Contact Info) Description 04/15/2023 Refill [facility] MED & PEDS [address] [place], [place] [phone] Tucker Rosas MD [address] [place] [address] Type 2 diabetes mellitus with stage 3a chronic kidney disease, without long-term current use of insulin ([facility]) Social History Tobacco Use Types Packs/Day Years [...] Description 06/07/2024 3:00 PM EST Medication Management [facility] MED & PEDS [address] [place] [address] Radha Dawson PharmSanta [address] [place] [address] documented as of this encounter Visit Diagnoses Diagnosis Type 2 diabetes mellitus with stage 3a chronic kidney disease, without long-term current use of insulin ([facility]) documented in this encounter Care Teams Cutter Barrel Drum Relationship Specialty Start Date End Date Martín Cabrera MD [address] [place] [address] PCP - General Internal Medicine 12/27/12 Radha Dawson PharmD [address] [place] [address] Pharmacist Internal Medicine 05/24/24 documented as of this encounter
--- OUTSIDE RECORDS SUMMARY | 2024-05-29 19:38 | XMS_ITS | Encounter Summary ---
Author Organization [facility] [facility] Address [address] [place] [address] [address] [place] [address] Care Team Providers Care Audio Visual Technician Name Role Phone Martín Cabrera MD Primary Care Provider [phone] Radha Dawson PharmD Unavailable [phone] Encounter Details Date Type Department Care Team (Late st Contact Info) Description 10/01/2022 Orders Only [facility] MED & PEDS [address] [place] [address] Martín Cabrera MD [address] [place] [address] Microcytic anemia (Primary Dx) Social History Tobacco Use Types Packs/Day Years Used Date Smoking Tobacco: Never Passive Smoke Exposure: Never Smokeless Tobacco: Never Alcohol Use Standard Drinks/Week Comments Not Currently 0 (1 standard drink = 0.6 oz pur e alcohol) Sex and Gender Information Value Date Recorded Sex Assigned at Male 02/01/2022 10:19 AM EDT Legal Sex Male 10:19 AM EDT Gender Identity Male 02/01/2022 10:19 AM EDT Sexual Orientation Straight 02/01/2022 10 :19 AM EDT documented as of this encounter Plan of Treatment Upcoming Encounters Date Type Department Care Team (Late st Contact Info) Description 06/07/2024 3:00 PM EST Medication Management [facility] MED & PEDS [address] [place] [address] Radha Dawson, PharmD [address] [place], [place] [phone] Scheduled Orders Name Type Priority Associated Diagnoses Orde r Schedule Iron, TIBC And Ferritin Panel Lab Routine Microcytic anemia Expected: 10/01/2022 (Approximate), Expires: 10/02/2023 documented as of this encounter Visit Diagnoses Diagnosis Microcytic anemia- Primary Unspecified iron deficiency anemia documented in this encounter Care Teams Audio Visual Technician Relationship Specialty Start Date End Date Martín Cabrera MD [address] [place] [address] PCP - General Internal Medicine 12/27/12 Radha Dawson PharmD [address] [place] [address] Pharmacist Internal Medicine 05/24/24 documented as of this encounter
--- OUTSIDE RECORDS SUMMARY | 2024-05-29 19:38 | XMS_ITS | Encounter Summary ---
Author Organization [facility] Address [address] [place] [address] [place] [address] Care Team Providers Care Software Business Analyst Name Role Phone Martín Cabrera MD Primary Care Provider [phone] Reason for Referral * Consultation (Routine) - Pending Review Specialty Diagnoses / Procedures Referred By Sarah dickinson Referred To Contact Pharmacy Diagnoses Type 2 diabetes mellitus with stage 3a chronic kidney disease, without long-term current use of insulin (CMS/HCC) Martín Cabrera MD [address] [place] [address] Phone: tel: fax: Referral ID Status Reason Start Date Expiration Date Visits Requested Visits Authorized [id number] Pending Review Consult and Treat 05/02/2024 05/02/2025 6 6 Encounter Details Date Type Department Care Team ([facility] st Contact Info) Description 05/02/2024 Orders Only [facility] MED [facility] PEDS [address] [place] [address] Martín Cabrera MD [address] [place] [address] Type 2 diabetes mellitus with stage 3a [...] housing situation today? I have doreen sing 01/30/[address] you li [...] Description 06/07/2024 3:00 PM EST Medication Management [facility] MED & PEDS [address] [place] [address] Radha Dawson, PharmD [address] [place], [place] [phone] Scheduled Referrals Name Type Priority Associated Diagnoses Orde r Schedule Referral to Pharmacy CDTM Outpatient Referral Routine Type 2 diabetes mellitus with stage 3a chronic kidney disease, without long-term current use of insulin (CMS/HCC) Ordered: 05/02/2024 documented as of this encounter Visit Diagnoses Diagnosis Type 2 diabetes mellitus with stage 3a chronic kidney disease, without long-term current use of insulin (CMS/HCC)- Primary documented in this encounter Care Teams Software Business Analyst Relationship Specialty Start Date End Date Martín Cabrera MD [address] [place], [place] [phone] PCP - General Internal Medicine 12/27/12 documented as of this encounter
--- OUTSIDE RECORDS SUMMARY | 2024-05-29 19:38 | XMS_ITS | Encounter Summary ---
Author Organization [employer] [facility] Address [address] [place] [address] [facility] [place] [address] Care Team Providers Care Insurance Plan Specialist Name Role Phone Martín Cabrera MD Primary Care Provider [phone] Radha Dawson PharmD Unavailable [phone] Encounter Details Date Type Department Care Team (Late st Contact Info) Description 12/10/2022 Orders Only [facility] MED & PEDS [address] [place], [place] [phone] Martín Cabrera MD [address] [place] [address] Type 2 diabetes mellitus with stage 3a chronic kidney disease, without long-term current use of insulin ([facility]) (Primary Dx) Social History Tobacco Use Types [...] 06/07/2024 3:00 PM EST Medication Management [facility] MED & PEDS [address] [place], [place] [phone] Radha Dawson, PharmD [address] [place], [place] [phone] documented as of this encounter Visit Diagnoses Diagnosis Type 2 diabetes mellitus with stage 3a chronic kidney disease, without long-term current use of insulin ([facility])- Primary documented in this encounter Care Teams Insurance Plan Specialist Relationship Specialty Start Date End Date Martín Cabrera MD [address] [place] [address] PCP - General Internal Medicine 12/27/12 Radha Dawson PharmD [address] [place], [place] [phone] Pharmacist Internal Medicine 05/24/24 documented as of this encounter
--- OUTSIDE RECORDS SUMMARY | 2024-05-29 19:38 | XMS_ITS | Encounter Summary ---
Author Organization [employer] Address [address] [facility] 7 [place] [address] Care Team Providers Care Helmet Hat Brim Cutter Name Role Phone Martín Cabrera MD Primary Care Provider [phone] Radha Dawson PharmD Unavailable [phone] Encounter Details Date Type Department Care Team ([facility] st Contact Info) Description 04/07/2023 Orders Only [facility] MED & PEDS [address] [place], [place] [phone] Martín Cabrera MD [address] [place] [address] Type 2 diabetes mellitus with stage 3a chronic kidney disease, without long-term current use of insulin ([facility]) Social History Tobacco Use Types Packs/Day [...] Description 06/07/2024 3:00 PM EST Medication Management [facility] MED & PEDS [address] [place] [address] Radha Dawson PharmD [address] [place] [address] documented as of this encounter Visit Diagnoses Diagnosis Type 2 diabetes mellitus with stage 3a chronic kidney disease, without long-term current use of insulin ([facility]) documented in this encounter Care Teams Helmet Hat Brim Cutter Relationship Specialty Start Date End Date Martín Cabrera MD [address] [place] [address] PCP - General Internal Medicine 12/27/12 Radha Dawson PharmD [address] [place] [address] Pharmacist Internal Medicine 05/24/24 documented as of this encounter
--- OUTSIDE RECORDS SUMMARY | 2024-05-29 19:39 | XMS_ITS | Encounter Summary ---
Author Organization [employer] Address [address] [place] [address] 7 [place] [address] Care Team Providers Care Tree Trimming Line Technician Name Role Phone Martín Cabrera MD Primary Care Provider [phone] Radha Dawson PharmD Unavailable [phone] Reason for Visit * Reason Onset Date Comments CHART PREP 05/25/2024 Encounter Details Date Type Department Care Team ([facility] Contact Info) Description 05/25/2024 Telephone [facility] [address] [place] [address] Martín Cabrera MD [address] [place] [address] CHART PREP Social History Tobacco Use Types Packs/Day Years [...] encounter Miscellaneous Notes * Telephone Encounter - Barb Jaeger [place] - 05/25/2024 4:06 PM EST Chart Prep Labs: done Images: done Vaccines due: yes Referrals: complete Screenings: colonoscopy Overdue care gaps: A1C, Glucose, Sbirt, SDOH, PHQ-9 documented in this encounter Plan of Treatment Upcoming Encounters Date Type Department Care Team (Late st Contact Info) Description 06/07/2024 3:00 PM EST Medication Management [facility] [address] [place], [place] [phone] Radha Dawson PharmD [address] [place] [address] documented as of this encounter Visit Diagnoses Not on filedocumented in this encounter Care Teams Tree Trimming Line Technician Relationship Specialty Start Date End Date Martín Cabrera MD [address] [place] [address] PCP - General Internal Medicine 12/27/12 Radha Dawson PharmD [address] [place] [address] Pharmacist Internal Medicine 05/24/24 documented as of this encounter
--- OUTSIDE RECORDS SUMMARY | 2024-05-29 19:39 | XMS_ITS | Encounter Summary ---
Author Organization [employer] Address [address] [facility] 7t [place] [address] Care Team Providers Care Product Support Consultant Name Role Phone Martín Cabrera MD Primary Care Provider [phone] Radha Dawson PharmD Unavailable [phone] Encounter Details Date Type Department Care Team (Latest Contact Info) Description 05/29/2024 Travel Social History Tobacco Use Types Packs/Day Years [...] Description 06/07/2024 3:00 PM EST Medication Management [facility] [address] [place] [address] Radha Dawson PharmD [address] [place] [address] documented as of this encounter Visit Diagnoses Not on filedocumented in this encounter Additional Health Concerns Assessment Noted Time PHQ-9 Depression Total Score: 2 05/29/19 4:27 PM EST documented as of this encounter Care Teams Product Support Consultant Relationship Specialty Start Date End Date Martín Cabrera MD [address] [place] [address] PCP - General Internal Medicine 12/27/12 Radha Dawson PharmD [address] [place] [address] Pharmacist Internal Medicine 05/24/24 documented as of this encounter
--- OUTSIDE RECORDS SUMMARY | 2024-05-29 19:39 | XMS_ITS | Clinical Summary ---
Author Organization [employer] Address [address] [place] [address] 7t [place] [address] Care Team Providers Care Scheduling Representative Name Role Phone Martín Cabrera MD Primary Care Provider [phone] Radha Dawson PharmD Unavailable [phone] Allergies Active Allergy Reactions Criticality Noted Date Comments Penicillins 03/16/2022 Medications ascorbic acid (Vitamin C) 1000 MG tablet Take 1 tablet by mouth 3 times daily. Active cholecalciferol (Vitamin D-3) 25 MCG (1000 UT) capsule Take 1 capsule by mouth 1 (one) time each day. Active cinnamon 500 MG capsule Take 1 capsule by mouth in the morning. Active Multiple Vitamins-Minerals (Centrum Adults) tablet Take 1 tablet by mouth 1 (one) time each day. With food Active triamcinolone (Kenalog) 0.1 % creamIndications: Rash Apply topically if needed in the morning and at bedtime (pain and swelling). 30 g 2 12/08/19 23 Active valsartan-hydroCH LOROthiazide (Diovan HCT) 160-12.5 MG tabletIndications :Primary hypertension Take 1 tablet by mouth Once per day. 30 tablet 11 11/23/19 24 2024 Active traZODone (Desyrel) 50 MG tabletIndications :Other insomnia Take 1 tablet (50 mg) by mouth at bedtime. 30 tablet 3 11/23/19 24 Active FREESTYLE LITE test stripIndications: Type 2 diabetes mellitus with stage 3a chronic kidney disease, without long-term current use of insulin ([facility]) Use to test blood sugar 2 times daily 100 each 12 11/23/19 24 2024 Active Lancets miscIndications:T ype 2 diabetes mellitus with stage 3a chronic kidney disease, without long-term current use of insulin (CMS/[facility]) Use to test blood sugar 2 times daily 100 each 11/23/19 24 Active Alcohol Swabs 70 % padsIndications:T ype 2 diabetes mellitus with stage 3a chronic kidney disease, without long-term current use of insulin (CMS/HCC) Use to test blood sugar 2 times daily 100 each 11/23/19 24 Active Blood Glucose Monitoring Suppl (FreeStyle [place] Lite) w/Device kitIndications:Ty pe 2 diabetes mellitus with stage 3a chronic kidney disease, without long-term current use of insulin (CMS/[facility]) Use to test blood sugar 2 times daily 1 kit 11/23/19 24 Active amLODIPine (Norvasc) 10 MG tabletIndications :Essential hypertension TAKE ONE TABLET EVERY MORNING 90 tablet 03/16/20 Active metFORMIN (Glucophage) 500 MG tabletIndications :Type 2 diabetes mellitus with stage 3a chronic kidney disease, without long-term current use of insulin (CMS/[facility]) Take 1 tablet (500 mg) by mouth with breakfast and with evening meal. 60 tablet 04/21/19 25 2025 Active simvastatin (Zocor) 40 MG tabletIndications :Mixed hyperlipidemia Take 1 tablet (40 mg) by mouth Once per day. 30 tablet 04/21/19 Active metoprolol succinate XL (Toprol-XL) 100 MG 24 hr tabletIndications :Primary hypertension Take 1 tablet (100 mg) by mouth Once per day. Do not crush or chew. 30 tablet 05/15/19 25 2025 Active valsartan-hydroCH LOROthiazide (Diovan HCT) 320-12.5 MG tabletIndications :Primary hypertension Take 1 tablet by mouth Once per day. 30 tablet 05/29/19 25 2025 Active aspirin 81 MG chewable tablet Chew 1 tablet 1 (one) time each day. 05/01/19 20 2024 Discontinued(M ed list cleanup (will not trigger notification to Pharmacy)) glucose blood (FREESTYLE LITE) test strip every 12 (twelve) hours. Use to test blood glucose twice a day 04/30/19 22 2024 Discontinued(D uplicate order (will not trigger notification to Pharmacy)) dextromethorphan (Delsym) 30 MG/5ML liquid TAKE 10 ML BY MOUTH EVERY 12 HOURS NEEDED FOR COUGH 05/06/19 23 2024 Discontinued(M ed list cleanup (will not trigger notification to Pharmacy)) zolpidem (Ambien) 10 MG tabletIndications :Other insomnia Take 1 tablet (10 mg) by mouth if needed at bedtime for sleep for up to 2 days. 1 tab one hour prior to the sleep study. 2 tablet 11/23/19 24 2024 Discontinued(M ed list cleanup (will not trigger notification to Pharmacy)) metoprolol succinate XL (Toprol-XL) 100 MG 24 hr tabletIndications :Primary hypertension Take 1 tablet (100 mg) by mouth Once per day. Do not crush or chew. 30 tablet 11 01/02/20 24 2024 Discontinued(R eorder (will not trigger notification to Pharmacy)) Active Problems Problem Noted Date Diagnosed Date Rash 12/07/2022 Assessment & Plan (12/07/2022 2:29 PM EDT): Likely bed bug bites? Scabies? I advise to check well new home for bed bugs for extermination Hospital discharge follow-up 05/12/2022 Assessment & Plan (05/12/2022 12:51 PM EST): Patient was hospitalized from 05/04-05/06 due to pneumonia and TOD, discharged home to complete oral antibiotics. Patient denied feve/chills, no further episode of shortness of breath, will place order for BMP to evaluate sodium and renal function Diabetes mellitus 04/09/2015 Assessment & Plan (05/12/2022 12:50 PM EST): Will start on metformin 500mg BID, will send BG monitor, reinforced low carb/no sugar diet, follow up in 1 Month with BG log Anxiety 07/20/2012 Depressive disorder 07/20/2012 Hyperlipidemia 07/20/2012 Hypertension 07/20/2012 Assessment & Plan (12/07/2022 2:30 PM EDT): Patient reports at home is always control Monitor BP at home, low Na diet F/u with PCP Assessment & Plan (05/12/2022 12:49 PM EST): Not at target, reinforced low sodium diet and exercise as tolerated, keep bp log, he refers at home usually ranges below 130/80, shedule follow up in 1 month Encounters Date Type Department Care Team Description 05/29/2024 3:30 PM EST Office Visit [facility] [address] [place] [address] Martín Cabrera MD Type 2 diabetes mellitus with stage 3a chronic kidney disease, without long-term current use of insulin (CMS/HCC) (Primary Dx); Mixed hyperlipidemia; Primary hypertension; Screening for colon cancer; Encounter for immunization 05/29/2024 Travel 05/25/2024 Telephone [facility] [address] [place] [address] Martín Cabrera MD CHART PREP 05/24/2024 2:30 PM EST Telemedicine [facility] [address] [place] [address] Radha Dawson, PharmD Type 2 diabetes mellitus with stage 3a chronic kidney disease, without long-term current use of insulin (CMS/HCC) (Primary Dx) 05/15/2024 Patient Outreach [facility] [address] [place] [address] Martín Cabrera MD Pre-visit Planning (SDOH screening negative and Tobacco screening negative) 05/07/2024 Refill [facility] [address] [place] [address] Martín Cabrera MD Primary hypertension 05/02/2024 Orders Only [facility] [address] [place] [address] Martín Cabrera MD Type 2 diabetes mellitus with stage 3a chronic kidney disease, without long-term current use of insulin (CMS/HCC) (Primary Dx) 05/02/2024 Telephone [facility] [address] [place] [address] Radha Dawson PharmD 04/20/2024 Refill [facility] [address] [place] [address] Martín Cabrera MD Type 2 diabetes mellitus with stage 3a chronic kidney disease, without long-term current use of insulin ([facility]); Mixed hyperlipidemia; Primary hypertension; Essential hypertension 04/19/2024 Travel 04/17/2024 Telephone [facility] [address] [place], [place] [phone] Martín Cabrera MD Chart Prep 04/17/2024 Telephone [facility] [address] [place] [address] Martín Cabrera MD Appointment Request 03/16/2024 Refill [facility] [address] [place] [address] Martín Cabrera MD Essential hypertension from Last 3 Months Immunizations Name Administration Dates Next Due Influenza High-dose Quadrivalent Preservative Fr ee 01/12/2023 Influenza Injectable Quadriv alant Preservative Free IIV4 MDCK 01/22/2020,05/01/2019 Influenza injectable quadriv alent IIV4 with preservative 12/29/2015 Influenza injectable quadrivalent preservative f ree 01/06/2021,01/23/2015 Influenza, IIV3, injectable 01/21/2014 Influenza, Split (incl. purified surface antigen ) 02/15/2013,01/10/2012 Influenza, seasonal, injectable, preservative fr ee 05/29/2024 Moderna Covid-19 Vaccine 12+ 07/15/2020,06/18/19 21 Pneumococcal Conjugate PCV 20 05/29/2024 Pneumococcal Polysaccharide PPSV23 05/02/2019 TD (adult), 2 Lf tetanus tox oid, preservative free, adsorbed 10/04/2007 Tdap 09/28/2016 Zoster, Recombinant 12/30/2020,10/14/2020 Social History Tobacco Use Types Packs/Day Years Used Date Smoking Tobacco: Never Passive Smoke Exposure: Never Smokeless Tobacco: Never Tobacco Cessation:Counseling Given: Not Answered Alcohol Use Standard Drinks/Week Comments Not Currently [...] Orientation Straight 02/01/2022 10 :19 AM EDT Last Filed Vital Signs Vital Sign Reading [...] Mass Index 28.88 05/29/2024 3:42 PM EST Plan of Treatment Upcoming Encounters Date Type Department Care Team (Late st Contact Info) Description 06/07/2024 3:00 PM EST Medication Management [facility] [address] [facility] [address] Radha Dawson, PharmD [address] [place] [address] Health Maintenance Due Date Last Done Comments CT Colonography 1956 Colonoscopy 1956 Colorectal Cancer Screening 1956 FIT DNA/Cologuard 1956 FIT 1956 FOBT 1956 Sigmoidoscopy 1956 Eye Exam 1966 RSV Patients and Patients Aged 60 years or older (1 - Risk 60-74 years 1-dose series) 2016 COVID-19 Vaccine ( season) 2023 07/15/2020, 06/17/2020 Diabetes: Hemoglobin A1C 08/26/2024 025, 11/23/2023, 06/08/2022, Additional history exists Diabetes: Foot Exam 11/22/2024 11/23/2023 Lipid Panel 11/22/2024 11/23/2023, 10/03, 12/26/2020, Additional history exists Alcohol/Substance Use Screening 05/29/2025 05/29/2024 Depression Screening 05/29/2025 05/29/2024, 05/29/19 25 SDOH Screening 05/29/2025 05/29/2024 Tobacco Screening 05/29/2025 05/29/2024 DTaP/Tdap/Td Vaccines (2 - Td or Tdap) 09/28/2026 09/28/2016, 10/04/2007 Zoster Vaccines Completed 12/30/2020, 10/14/2020 Hepatitis C Screening Completed 11/23/2023, 022 Influenza Vaccine Completed 05/29/2024, , 01/06/2021, Additional history exists Pneumococcal Vaccine: 50+ Years Completed 05/29/2024, 05/02/2019 HIB Vaccines Aged Out No longer eligi ble based on patient's age to complete this topic HPV Vaccines Aged Out No longer eligi ble based on patient's age to complete this topic Hepatitis A Vaccines Aged Out No long er eligible based on patient's age to complete this topic Hepatitis B Vaccines Aged Out No long er eligible based on patient's age to complete this topic IPV Vaccines Aged Out No longer eligi ble based on patient's age to complete this topic Meningococcal Vaccine Aged Out No durga sushila eligible based on patient's age to complete this topic RSV under 20 months Aged Out No longe r eligible based on patient's age to complete this topic Rotavirus Vaccines Aged Out No longer eligible based on patient's age to complete this topic Procedures Procedure Name Priority Date/Time Associated Diagnosis Comments TSH W/REFLEX TO FT4 Routine 05/29/2024 4 :08 PM EST Type 2 diabetes mellitus with stage 3a chronic kidney disease, without long-term current use of insulin (CMS/HCC) COMPREHENSIVE METABOLIC PANEL Routine 05/29/2024 4:08 PM EST Type 2 diabetes mellitus with stage 3a chronic kidney disease, without long-term current use of insulin (CMS/HCC) CBC WITH AUTO DIFFERENTIAL Routine 05/29/2024 4:08 PM EST Type 2 diabetes mellitus with stage 3a chronic kidney disease, without long-term current use of insulin (CMS/HCC) POCT GLUCOSE Routine 05/29/2024 3:57 PM EST Type 2 diabetes mellitus with stage 3a chronic kidney disease, without long-term current use of insulin (CMS/HCC) POCT GLYCATED HEMOGLOBIN, TOTAL Routine 05/29/2024 3:55 PM EST Type 2 diabetes mellitus with stage 3a chronic kidney disease, without long-term current use of insulin (CMS/HCC) HEPATITIS C AB W/REFL TO HCV RNA, QN, PCR Routine 11/23/2023 3:48 PM EDT Type 2 diabetes mellitus with stage 3a chronic kidney disease, without long-term current use of insulin (CMS/HCC) LIPID PANEL, STANDARD Routine 11/23/2023 3:48 PM EDT Type 2 diabetes mellitus with stage 3a chronic kidney disease, without long-term current use of insulin ([facility]) from Last 3 Months or Most Recently Relevant to Health Maintenance Results * TSH W/Reflex to FT4 (05/29/2024 4:08 PM EST) TSH reflex Free T4 2.06 0.32 - 4.0 uIU/mL [facility] Blood Venous blood specimen / Unknown 05/29/2024 4:08 PM EST 05/29/2024 6:02 PM EST us Martín Cabrera MD LAB BLOOD ORDERABLES Final Result [facility] [address] [place] [phone] * (ABNORMAL) CBC auto differential (05/29/2024 4:08 PM EST) White Blood Count 7.6 4.8 - 10.8 X10*3/uL [facility] Red Blood Count 5.43 4.60 - 5.80 X10*6/uL [facility] Hemoglobin 13.0(L) 14.0 - 18.0 g/dl [facility] Hematocrit 42.3 42.0 - 52.0 % [facility] Mean Corpuscular Volume 77.9(L) 80.0 - 98.0 fL [facility] Mean Corpuscular Hemoglobin 23.9(L) 27.0 - 33.0 pg [facility] Mean Corpuscular HGB Conc 30.7(L) 31.0 - 36.0 g/dl [facility] Red Cell Distribution Width 13.2 11.0 - 16.0 % [facility] Platelet Count 179 160 - 400 X10*3/uL [facility] Mean Platelet Volume 11.7 9.4 - 12.4 fL [facility] Neutrophils Percent Auto 59.7 45 - 73 % [facility] Imm Gran Pct Auto 0.1 0.0 - 0.4 % [facility] Lymphocytes Percent Auto 30.1 20 - 40 % [facility] Monocytes Percent Auto 8.9 2 - 11 % [facility] Eosinophils Percent Auto 0.8 0 - 4 % [facility] Basophils Percent Auto 0.4 0 - 2 % [facility] NRBC Pct Auto 0.0 0.0 - 0.2 /100WBC [facility] Neutrophils Absolute Auto 4.5 2.0 - 8.3 x10*3/uL [facility] Imm Gran Abs Auto 0.01 0.00 - 0.03 X10*3/uL [facility] Lymphocytes Absolute Auto 2.3 1.2 - 4.9 X10*3/uL [facility] Monocytes Absolute Auto 0.7 0.1 - 1.2 X10*3/uL [facility] Eosinophils Absolute Auto 0.1 0.0 - 0.4 X10*3/uL [facility] Basophils Absolute Auto 0.0 0.0 - 0.2 X10*3/uL [facility] NRBC Abs Auto 0.000 0.0 - 0.012 X10*3/uL [facility] Blood Venous blood specimen / Unknown 05/29/2024 4:08 PM EST 05/29/2024 6:02 PM EST us Martín Cabrera MD LAB BLOOD ORDERABLES Final Result [facility] [address] [place] [phone] * (ABNORMAL) Comprehensive Metabolic Panel (05/29/2024 4:08 PM EST) Sodium 139 135 - 145 mmol/L [facility] Potassium 3.8 3.3 - 5.1 mmol/L [facility] Chloride 101 96 - 108 mmol/L [facility] Carbon Dioxide 27 22 - 29 mmol/L [facility] Anion Gap 15 12 - 20 [facility] Urea Nitrogen (BUN) 19(H) 9 - 16 mg/dL [facility] Creatinine, Serum 1.04 0.5 - 1.4 mg/dL [facility] Estimated Glomerular Filt Rate >60 [facility] Comment:Chronic Kidney Disea se: Estimated GFR < 60 mL/min/[id number] Kidney Disease: Estimated GFR < 15 mL/min/1.73m2 Glucose 132(H) 60 - 115 mg/dL [facility] Calcium 9.6 8.4 - 10.2 mg/dL [facility] Bilirubin, Total 0.8 0.0 - 1.0 mg/dL [facility] Aspartate Amino Transferase 27 5 - 37 U/L [facility] Alanine Aminotransferase 23 0 - 40 U/L [facility] Total Protein 8.7(H) 6.5 - 8.0 g/dL [facility] Albumin Level 4.7 3.5 - 5.0 g/dL [facility] Alkaline Phosphatase 60 39 - 117 U/L [facility] Blood Venous blood specimen / Unknown 05/29/2024 4:08 PM EST 05/29/2024 6:02 PM EST Martín Cabrera MD LAB BLOOD ORDERABLES Final Result [facility] [address] [place] [phone] * POCT Glucose (05/29/2024 3:57 PM EST) [facility] Signature Glucose Blood, POC 137 60 - 200 mg/dL QC Media Lot # [id number] Lot# Expiration Date [id number] Comment:random Blood Capillary blood specimen / Unknown 05/29/2024 3:57 PM EST us Martín Cabrera MD POINT OF CARE TEST ENTER/ED IT ORDERABLES Final Result * (ABNORMAL) POCT HGB A1C (05/29/2024 3:55 PM EST) Hemoglobin A1C 9.2(A) 4.0 - 6.0 % QC Media Lot # [id number] Lot# Expiration Date Blood 05/29/2024 3:55 PM EST Martín Cabrera MD POINT OF CARE TEST ENTER/ED IT ORDERABLES Final Result * Hepatitis C Antibody with Reflex to HCV, RNA, Quantitative, Real-Time PCR (11/23/2023 3:48 PM EDT) Pathologist [facility] Hepatitis C Antibody Nonreactive Nonreactive [facility] Comment:Antibodies to HCV no t detected; does not exclude early acuteHCV infection. Blood Venous blood specimen / Unknown 11/23/2023 3:48 PM EDT 11/23/2023 5:57 PM EDT Martín Cabrera MD LAB BLOOD ORDERABLES Final Result [facility] [address] [place] [address] [phone] * (ABNORMAL) Lipid Panel, Standard (11/23/2023 3:48 PM EDT) Triglycerides 129 <150 mg/dL [facility] Comment:Desirable Triglyceri de: less than 150 mg/dLBorderline High Triglyceride 150-199 mg/dLHigh Triglyceride: 200-499 mg/dLVery High Triglyceride: greater than or equal to 5OO mg/dL Cholesterol 140 <200 mg/dL [facility] Comment:Desirable Cholestero l: less than 200 mg/dLBorderline High Cholesterol: 200-239 mg/dLHigh Cholesterol: greater than 239 mg/dL LDL Cholesterol Calculated 76 <100 mg/dL [facility] Comment:Desirable LDL: less than 100 mg/dLNear Optimal/Above Optimal LDL: 110- 129 mg/dLBorderline High LDL: 130-159 mg/dLHigh LDL: 160-189 mg/dLVery High LDL: greater than or equal to 190 mg/dL HDL Cholesterol 39(L) >40 mg/dL [facility] Comment:Desirable HDL: great er than 40 mg/dL Note: This HDL assay may give artificially low results in patients with liver disease. Blood Venous blood specimen / Unknown 11/23/2023 3:48 PM EDT 11/23/2023 5:57 PM EDT Martín Cabrera MD LAB BLOOD ORDERABLES Final Result [facility] [address] [place] [phone] from Last 3 Months or Most Recently Relevant to Health Maintenance Insurance [employer] HMO Care Teams Scheduling Representative Relationship Specialty Start Date End Date Martín Cabrera MD [address] [place] [phone] PCP - General Internal Medicine 12/27/12 Radha Dawson, PericoD [address] [place] [phone] Pharmacist Internal Medicine 05/24/24
== END 2024-05-29 16:07 | disposition home or self-care (01) ==
LOC: HO.CHCLDS 16:06
PROVIDERS: Visit Provider Internal Medicine
DX: E11.22 Type 2 diabetes mellitus with diabetic chronic kidney disease (principal); N18.31 Chronic kidney disease, stage 3a
CPT/HCPCS: 36415; 80053; 84443; 85025

== ENCOUNTER 2024-05-31 15:43 | Outpatient (REF) | payer SELFPAY ==
[2024-05-31 18:27] LABS: Immature Retic Fraction 11.8 % (2.3-13.4); Retic HGB Equivalent 28.2 pg (30.0-35.0); Reticulocyte Percent 1.4 % (0.5-1.8); Reticulocytes Absolute 0.072 X10*6/uL (0.026-0.095)
[2024-05-31 18:47] LABS: Iron 101 mcg/dL (45-160); Percent Iron Saturation 38 % (15-50); Total Iron Binding Capacity 269 mcg/dL (228-428); Unsaturated Iron Binding 168 ug/dL
[2024-05-31 19:03] LABS: Ferritin 175 ng/mL (20-250)
--- OUTSIDE RECORDS SUMMARY | 2024-05-31 19:05 | XMS_ITS | Encounter Summary ---
Author Organization [employer] Address [address] 7 [place] [address] Care Team Providers Care Ferry Terminal Supervisor Name Role Phone Martín Cabrera MD Primary Care Provider [phone] Radha Dawson PharmD Unavailable [phone] Encounter Details Date Type Department Care Team ([facility] st Contact Info) Description 04/07/2023 Orders Only [facility] [address] [place], [place] [phone] Martín Cabrera MD [address] [place] [address] Type 2 diabetes mellitus with stage 3a chronic kidney disease, without long-term current use of insulin ([facility]) Social History Tobacco Use Types Packs/Day Years [...] Description 06/07/2024 3:00 PM EST Medication Management [facility] [address] [place] [address] Radha Dawson PharmD [address] [place] [address] documented as of this encounter Visit Diagnoses Diagnosis Type 2 diabetes mellitus with stage 3a chronic kidney disease, without long-term current use of insulin ([facility]) documented in this encounter Care Teams Ferry Terminal Supervisor Relationship Specialty Start Date End Date Martín Cabrera MD [address] [place] [address] PCP - General Internal Medicine 12/27/12 Radha Dawson PharmD [address] [place] [address] Pharmacist Internal Medicine 05/24/24 documented as of this encounter
--- OUTSIDE RECORDS SUMMARY | 2024-05-31 19:05 | XMS_ITS | Encounter Summary ---
Author Organization [employer] Address [address] [place] [address] 7 [place] [address] Care Team Providers Care Tariff Supervisor Name Role Phone Martín Cabrera MD Primary Care Provider [phone] Radha Dawson PharmD Unavailable [phone] Reason for Visit * Reason Comments Med Refill Encounter Details Date Type Department Care Team ([facility] st Contact Info) Description 12/27/2023 Refill [facility] CH[facility] MED & PEDS [address] [place], [place] [phone] Martín Cabrera MD 505 [place] [address] Essential hypertension Social History Tobacco Use Types [...] 06/07/2024 3:00 PM EST Medication Management [facility] MED & PEDS 505 [place] [address] Radha Dawson PharmD [address] [place] [address] documented as of this encounter Visit Diagnoses Diagnosis Essential hypertension Unspecified essential hypertension documented in this encounter Care Teams Tariff Supervisor Relationship Specialty Start Date End Date Martín Cabrera MD 505 [place] [address] PCP - General Internal Medicine 12/27/12 Radha Dawson PharmD [address] [place] [address] Pharmacist Internal Medicine 05/24/24 documented as of this encounter
--- OUTSIDE RECORDS SUMMARY | 2024-05-31 19:05 | XMS_ITS | Encounter Summary ---
Author Organization [email or web address] Address [address] [place] [address] [facility] [place] [address] Care Team Providers Care Labview Programmer Name Role Phone Martín Cabrera MD Primary Care Provider [phone] Radha Dawson PharmD Unavailable [phone] Encounter Details Date Type Department Care Team (Late st Contact Info) Description 12/10/2022 Orders Only [facility] CHC MED & PEDS [address] [place], [place] [phone] Martní Cabrera MD 505 [place] [address] Type 2 diabetes mellitus with stage 3a chronic kidney disease, without long-term current use of insulin ([facility]) (Primary Dx) Social History Tobacco Use Types [...] 06/07/2024 3:00 PM EST Medication Management [facility] MED & PEDS 505 [place], [place] [phone] Radha Dawson, PharmD [address] [place], [place] [phone] documented as of this encounter Visit Diagnoses Diagnosis Type 2 diabetes mellitus with stage 3a chronic kidney disease, without long-term current use of insulin ([facility])- Primary documented in this encounter Care Teams Labview Programmer Relationship Specialty Start Date End Date Martín Cabrera MD [address] [place] [address] PCP - General Internal Medicine 12/27/12 Radha Dawson PharmD [address] [place], [place] [phone] Pharmacist Internal Medicine 05/24/24 documented as of this encounter
--- OUTSIDE RECORDS SUMMARY | 2024-05-31 19:05 | XMS_ITS | Encounter Summary ---
Author Organization [employer] [facility] Address [address] [place] [address] [facility] [place] [address] Care Team Providers Care Lead Shop Operator Name Role Phone Martín Cabrera MD Primary Care Provider [phone] Radha Dawson PharmD Unavailable [phone] Encounter Details Date Type Department Care Team (Late st Contact Info) Description 10/01/2022 Orders Only [facility] MED & PEDS [address] [place] [address] Martín Cabrera MD 505 [place] [address] Microcytic anemia (Primary Dx) Social History Tobacco [...] Description 06/07/2024 3:00 PM EST Medication Management [facility] MED & PEDS [address] [place] [address] Radha Dawson, PharmD 230 [place], [place] [phone] Scheduled Orders Name Type Priority Associated Diagnoses Orde r Schedule Iron, TIBC And Ferritin Panel Lab Routine Microcytic anemia Expected: 10/01/2022 (Approximate), Expires: 10/02/2023 documented as of this encounter Visit Diagnoses Diagnosis Microcytic anemia- Primary Unspecified iron deficiency anemia documented in this encounter Care Teams Lead Shop Operator Relationship Specialty Start Date End Date Martín Cabrera MD 505 [place] [address] PCP - General Internal Medicine 12/27/12 Radha Dawson PharmD [address] [place] [address] Pharmacist Internal Medicine 05/24/24 documented as of this encounter
--- OUTSIDE RECORDS SUMMARY | 2024-05-31 19:05 | XMS_ITS | Data Portability ---
Author Organization [facility] [facility], [address] Address [address] [place] [address] Assessment No assessment recorded. Plan of Treatment Reminders Order Date Submit Date Provider Last Modified By Organization Details Last Modified Time Details Appointments None recorded. Lab None recorded. Referral None recorded. Procedures None recorded. Surgeries None recorded. Imaging XR, cervical spine, 2 or 3 view 2022 023 [facility], [address] [place] [address], [address], 3 16:53:35 Medication Orders cyclobenzap rine 10 mg tablet 2022 023 [facility] [address] [place] [address], [address], 3 16:38:01 naproxen 500 mg tablet 2022 023 [facility] [address] [place] [address], [address], 3 16:38:00 Patient TargetsNo targets recorded. Patient Instructions Encounter Date Encounter Id Patient Instructions Last Modified By Organization Details Last Modified Time 10/29/2022 [id number] This patient presents sub-acutely after a motor [...] for pain. Not available 10/29/2022 16:14:15 11/06/2022 [id number] - Good neck mechanics, posture, modalities reviewed [...] ed. [email or web address] [address] [place], [address], 10/29/2022 17:02:29 Result Notes None recorded. Problems Name Problem SNOMED Code Status Onset Date Resolution Date Notes Provider Name and Address Organization Details Recorded Time Hypertensive disorder 18001609 Active 2022 XIOMY mena, [place] - [facility] 3 15:56:04 Hyperlipidemia 01761397 Active 2022 XIOMY mena, [place] - [facility] 3 15:56:09 Diabetes mellitus 56629131 Active 2022 XIOMY mena, [place] - [facility] 3 15:56:14 Problem Notes None recorded. Procedures Surgical History None recorded. Imaging Results Imaging Date Name Status LastModified by Organiz ation Details LastModified Time 10/29/2022 XR, cervical spine, 2 or 3 view completed [email or web address] [address] [place], [address], 10/29/2022 17:02:29 Procedure Notes None recorded. Medical Equipment None Reported. Allergies Allergen ID Allergen Name Allergen Category Reaction Reaction Severity Criticality Documentation Date Start Date Code Code System Note Provider Name and Address Organization Details Recorded Time 665840 Product containin g penicilli n (product) medicatio n Not available Not available Not available 10/29/2022 52024 8001 SNOMED [facility]Y mena, [facility] - [facility] [...] Not Available Not Available Not Available FreeStyle [place] Lite kit USE TWICE DAILY active Not [...] Updated DateTime 3 167.64 cm 29.1 kg/m2 81330.6 3 g 97.5 [degF] 18 /min 98 [...] Updated DateTime 3 167.64 cm 29.1 kg/m2 73440.6 3 g 9 97.7 [degF] 18 /min [...] SNOMED-CT Code Diagnosis ICD10 Code Diagnosis Note [id number] [address] [facility] [address] [place] [address] 10/29/2020 12:05:38 10/29/2020 14:01:33 [id number] David Pappas NP [address] [facility] [place] [address] 10/29/2022 15:34:08 10/29/2022 16:42:08 Neck pain 15635143 M54.2 Accident w letitia engaged in work-related activity 52053558 X58.XXXA [id number] David Pappas NP [address] [place] [address] 11/06/2022 11:47:57 11/06/2022 12:39:57 Strain of neck muscle 884422490 S16.1XXD Continue medication as prescribed . Accident w letitia engaged in work-related activity 37059702 X58.XXXA Health Concerns Section Related Observation LastModified by Organization Detai ls LastModified Time None Recorded Concern Status LastModified by Organization Details LastModified Time None Recorded Advance Directives Directive None Recorded Payers Encounter Date Sequence Insurance Name Policy Number Policy Carreon Covered Member ID Carreon Member ID Guarantor Name 10/29/2022 [facility] [employer] Akil Wilkins 11/06/2022 [facility] [employer] Akil Wilkins Notes Date Note Type Note [...] David Pappas NP [address] [place], [address], [employer] [facility] 10/29/2022 16:38:19 3 text/html Neck UCReported [...] David Pappas NP [address] [place], [address], [employer] [facility] 11/06/2022 12:37:19
--- OUTSIDE RECORDS SUMMARY | 2024-05-31 19:05 | XMS_ITS | Encounter Summary ---
Author Organization [facility] Address [address] [facility] 7 [place] [address] Care Team Providers Care Health And Safety Tech Name Role Phone Martín Cabrera MD Primary Care Provider [phone] Radha Dawson PharmD Unavailable [phone] Reason for Visit * Reason Comments Med Refill Encounter Details Date Type Department Care Team ([facility] st Contact Info) Description 04/15/2023 Refill [facility] CHC MED & PEDS [address] [place], [place] [phone] Tucker Rosas MD [address] [place] [address] Type 2 diabetes mellitus with stage 3a chronic kidney disease, without long-term current use of insulin ([facility]) Social History Tobacco Use Types Packs/Day [...] 06/07/2024 3:00 PM EST Medication Management [facility] MED & PEDS [address] [place] [address] Radha Dawson PharmSanta [address] [place] [address] documented as of this encounter Visit Diagnoses Diagnosis Type 2 diabetes mellitus with stage 3a chronic kidney disease, without long-term current use of insulin ([facility]) documented in this encounter Care Teams Health And Safety Tech Relationship Specialty Start Date End Date Martín Cabrera MD [address] [place] [address] PCP - General Internal Medicine 12/27/12 Radha Dawson PharmD 230 [place] [address] Pharmacist Internal Medicine 05/24/24 documented as of this encounter
--- OUTSIDE RECORDS SUMMARY | 2024-05-31 19:06 | XMS_ITS | Encounter Summary ---
Author Organization [employer] Address [address] [facility] 7t [place] [address] Care Team Providers Care Production Quality Analyst Name Role Phone Martín Cabrera MD Primary Care Provider [phone] Radha Dawson PharmD Unavailable Encounter Details Date Type Department Care Team (Late st Contact Info) Description 05/31/2024 Telephone [facility] 230 [place] [address] Martín Cabrera MD [address] [place] [address] Social History Tobacco Use Types Packs/Day Years [...] encounter Miscellaneous Notes * Telephone Encounter - Lynsey Delong RN - 05/31/2024 10:18 AM EST TC x 2 placed to pt via [employer] backbreaker (Lanie ID#[id number]) to inform and advise of below PCP message. No answer, LVM to call office back and ask to speak to the nurses. ----- Message from Martín Cabrera MD sent at 05/30/2024 8:38 PM EST ----- Please call. Labs reviewed: Microcytic anemia. Patient needs an anemia workup. he will be called back after the anemia workup documented in this encounter Plan of Treatment Upcoming Encounters Date Type Department Care Team (Late st Contact Info) Description 06/07/2024 3:00 PM EST Medication Management [facility] MED & PEDS 505 [place], [place] [phone] Radha Dawson, PharmD 230 [place], [place] [phone] documented as of this encounter Visit Diagnoses Not on filedocumented in this encounter Additional Health Concerns Assessment Noted Time PHQ-9 Depression Total Score: 2 05/29/19 4:27 PM EST documented as of this encounter Care Teams Production Quality Analyst Relationship Specialty Start Date End Date Martín Cabrera MD [address] [place] [address] PCP - General Internal Medicine 12/27/12 Radha Dawson PharmD [address] [place] [address] Pharmacist Internal Medicine 05/24/24 documented as of this encounter
--- OUTSIDE RECORDS SUMMARY | 2024-05-31 19:06 | XMS_ITS | Encounter Summary ---
Author Organization [employer] [facility] Address [address] [facility] 7 [place] [address] Care Team Providers Care School Athletic Director Name Role Phone Martín Cabrera MD Primary Care Provider [phone] Radha Dawson PharmD Unavailable [phone] Reason for Visit * Consultation (Routine) - Pending Review Specialty Diagnoses / Procedures Referred By Contac t Referred To Contact Pharmacy Diagnoses Type 2 diabetes mellitus with stage 3a chronic kidney disease, without long-term current use of insulin (CMS/HCC) Martín Cabrera MD 505 [place] [address] Phone: tel: fax: Referral ID Status Reason Start Date Expiration Date Visits Requested Visits Authorized [id number] Pending Review Consult and Treat 05/02/2024 05/02/2025 6 6 Encounter Details Date Type Department Care Team ([facility] st Contact Info) Description 05/24/2024 2:30 PM EST Telemedicine [facility] CHC MED & PEDS 505 [place] [address] Radha Dawson, PharmD [address] [place] [address] Type 2 diabetes mellitus with stage 3a [...] is allergic to penicillins. Read/Write: Yes, in Japanese Recent Hospitalizations: No Social History as reported [...] and PCV20 Offer next visit Preferred Pharmacy: [facility] - [address] [address] Assessment/Plan: Type 2 Diabetes Pharmacologic Therapy: Metformin [...] [facility] 505 [place] [address] Radha Dawson PharmD [address] [place], [place] [phone] Scheduled Referrals Name Type Priority Associated Diagnoses Orde r Schedule Referral to Pharmacy CDTM Outpatient Referral Routine Type 2 diabetes mellitus with stage 3a chronic kidney disease, without long-term current use of insulin ([facility]) Ordered: 05/02/2024 documented as of this encounter Visit Diagnoses Diagnosis Type 2 diabetes mellitus with stage 3a chronic kidney disease, without long-term current use of insulin ([facility])- Primary documented in this encounter Care Teams School Athletic Director Relationship Specialty Start Date End Date Martín Cabrera MD [address] [place] [address] PCP - General Internal Medicine 12/27/12 Radha Dawson PharmD [address] [place] [address] Pharmacist Internal Medicine 05/24/24 documented as of this encounter
--- OUTSIDE RECORDS SUMMARY | 2024-05-31 19:06 | XMS_ITS | Encounter Summary ---
Author Organization [employer] [facility] Address [address] [place] [address] [facility] [address] Care Team Providers Care Tilting Saw Operator Name Role Phone Martín Cabrera MD Primary Care Provider [phone] Radha Dawson PharmD Unavailable [phone] Reason for Referral * Consultation (Routine) - Authorized Specialty Diagnoses / Procedures Referred By Contanabela t Referred To Contact Pharmacy Diagnoses Type 2 diabetes mellitus with stage 3a chronic kidney disease, without long-term current use of insulin (CMS/HCC) Primary hypertension Martín Cabrera MD [address] [place] [address] Phone: tel: fax: Referral ID Status Reason Start Date Expiration Date Visits Requested Visits Authorized [id number] Authorized Consult and Treat 05/29/2024 05/29/2025 6 6 Encounter Details Date Type Department Care Team (Late st Contact Info) Description 05/29/2024 3:30 PM EST Office Visit [facility] CHC MED & PEDS [address] [place] [address] Martín Cabrera MD [address] [place] [address] Type 2 diabetes mellitus with stage 3a [...] of diabetes and hypertension. 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 Blood Glucose Monitoring Suppl (FreeStyle [place] Lite) w/Device kit Use to test blood [...] 3:00 PM EST Medication Management [facility] MED & PEDS [address] [place] [address] Radha Dawson, PharmD [address] [place] [address] Scheduled Orders Name Type Priority Associated Diagnoses [...] disease, without long-term current use of insulin ([facility]) COMPREHENSIVE METABOLIC PANEL Routine 05/29/2024 4:08 PM EST Type 2 diabetes mellitus with stage 3a chronic kidney disease, without long-term current use of insulin ([facility]) POCT GLUCOSE Routine 05/29/2024 3:57 PM EST Type 2 diabetes mellitus with stage 3a chronic kidney disease, without long-term current use of insulin ([facility]) POCT GLYCATED HEMOGLOBIN, TOTAL Routine 05/29/2024 3:55 PM EST Type 2 diabetes mellitus with stage 3a chronic kidney disease, without long-term current use of insulin ([facility]) documented in this encounter Results * TSH W/Reflex to FT4 (05/29/2024 4:08 PM EST) TSH reflex Free T4 2.06 0.32 - 4.0 uIU/mL [facility] Blood Venous blood specimen / Unknown 05/29/2024 4:08 PM EST 05/29/2024 6:02 PM EST us Martín Cabrera MD LAB BLOOD ORDERABLES Final Result [facility] [address] [place] [address] [phone] * (ABNORMAL) Comprehensive Metabolic Panel (05/29/2024 4:08 PM EST) Sodium 139 135 - 145 mmol/L [facility] Potassium 3.8 3.3 - 5.1 mmol/L [facility] Chloride 101 96 - 108 mmol/L [facility] Carbon Dioxide 27 22 - 29 mmol/L [facility] Anion Gap 15 12 - 20 [facility] Urea Nitrogen (BUN) 19(H) 9 - 16 mg/dL [facility] Creatinine, Serum 1.04 0.5 - 1.4 mg/dL [facility] Estimated Glomerular Filt Rate >60 [facility] Comment:Chronic Kidney Disea se: Estimated GFR < 60 mL/min/1.92h6Esgaxm Kidney Disease: Estimated GFR < 15 mL/min/1.73m2 Glucose 132(H) 60 - 115 mg/dL [facility] Calcium 9.6 8.4 - 10.2 mg/dL [facility] Bilirubin, Total 0.8 0.0 - 1.0 mg/dL [facility] Aspartate Amino Transferase 27 5 - 37 U/L [facility] Alanine Aminotransferase 23 0 - 40 U/L [facility] Total Protein 8.7(H) 6.5 - 8.0 g/dL [facility] Albumin Level 4.7 3.5 - 5.0 g/dL [facility] Alkaline Phosphatase 60 39 - 117 U/L [facility] Blood Venous blood specimen / Unknown 05/29/2024 4:08 PM EST 05/29/2024 6:02 PM EST us Martín Cabrera MD LAB BLOOD ORDERABLES Final Result [facility] [address] [place] [address] [phone] * (ABNORMAL) CBC auto differential (05/29/2024 4:08 PM EST) White Blood Count 7.6 4.8 - 10.8 X10*3/uL [facility] Red Blood Count 5.43 4.60 - 5.80 X10*6/uL [facility] Hemoglobin 13.0(L) 14.0 - 18.0 g/dl [facility] Hematocrit 42.3 42.0 - 52.0 % [facility] Mean Corpuscular Volume 77.9(L) 80.0 - 98.0 fL [facility] Mean Corpuscular Hemoglobin 23.9(L) 27.0 - 33.0 pg [facility] Mean Corpuscular HGB Conc 30.7(L) 31.0 - 36.0 g/dl [facility] Red Cell Distribution Width 13.2 11.0 - 16.0 % [facility] Platelet Count 179 160 - 400 X10*3/uL [facility] Mean Platelet Volume 11.7 9.4 - 12.4 fL [facility] Neutrophils Percent Auto 59.7 45 - 73 % [facility] Imm Gran Pct Auto 0.1 0.0 - 0.4 % [facility] Lymphocytes Percent Auto 30.1 20 - 40 % [facility] Monocytes Percent Auto 8.9 2 - 11 % [facility] Eosinophils Percent Auto 0.8 0 - 4 % [facility] Basophils Percent Auto 0.4 0 - 2 % [facility] NRBC Pct Auto 0.0 0.0 - 0.2 /100WBC [facility] Neutrophils Absolute Auto 4.5 2.0 - 8.3 x10*3/uL [facility] Imm Gran Abs Auto 0.01 0.00 - 0.03 X10*3/uL [facility] Lymphocytes Absolute Auto 2.3 1.2 - 4.9 X10*3/uL [facility] Monocytes Absolute Auto 0.7 0.1 - 1.2 X10*3/uL [facility] Eosinophils Absolute Auto 0.1 0.0 - 0.4 X10*3/uL [facility] Basophils Absolute Auto 0.0 0.0 - 0.2 X10*3/uL [facility] NRBC Abs Auto 0.000 0.0 - 0.012 X10*3/uL [facility] Blood Venous blood specimen / Unknown 05/29/2024 4:08 PM EST 05/29/2024 6:02 PM EST us Martín Cabrera MD LAB BLOOD ORDERABLES Final Result [facility] [address] [place] [address] [phone] * POCT Glucose (05/29/2024 3:57 PM [...] disease, without long-term current use of insulin ([facility])- Primary Mixed hyperlipidemia Primary hypertension Unspecified essential hypertension Screening for colon cancer Special screening for malignant neoplasms, colon Encounter for immunization documented in this encounter Additional Health Concerns Assessment Noted Time PHQ-9 Depression Total Score: 2 05/29/19 4:27 PM EST documented as of this encounter Care Teams Tilting Saw Operator Relationship Specialty Start Date End Date Martín Cabrera MD [address] [place] [address] PCP - General Internal Medicine 12/27/12 Radha Dawson PharmD [address] [place] [address] Pharmacist Internal Medicine 05/24/24 documented as of this encounter
--- OUTSIDE RECORDS SUMMARY | 2024-05-31 19:06 | XMS_ITS | Encounter Summary ---
Author Organization [employer] Address [address] [place] [address] 7 [place] [address] Care Team Providers Care Attraction Attendant Name Role Phone Martín Cabrera MD Primary Care Provider [phone] Radha Dawson PharmD Unavailable [phone] Encounter Details Date Type Department Care Team ([facility] st Contact Info) Description 05/31/2024 Telephone [facility] CHC MED & PEDS [address] [place] [address] Martín Cabrera MD [address] [place] [address] Social History Tobacco Use Types Packs/Day Years [...] encounter Miscellaneous Notes * Telephone Encounter - Yoselyn Ravi RN - 05/31/2024 3:32 PM EST Patient walk-in requesting T-spot. Lab ordered. documented in this encounter Plan of Treatment Upcoming Encounters Date Type Department Care Team (Late st Contact Info) Description 06/07/2024 3:00 PM EST Medication Management [facility] MED & PEDS [address] [place] [address] Radha Dawson PharmD [address] [place], [place] [phone] Scheduled Orders Name Type Priority Associated Diagnoses Orde r Schedule T-SPOT??.TB Lab Routine Encounter for screening for respiratory tuberculosis Expected: 05/31/2024 (Approximate), Expires: 05/31/2025 documented as of this encounter Visit Diagnoses Diagnosis Encounter for screening for respiratory tuberculosis documented in this encounter Additional Health Concerns Assessment Noted Time PHQ-9 Depression Total Score: 2 05/29/19 25 4:27 PM EST documented as of this encounter Care Teams Attraction Attendant Relationship Specialty Start Date End Date Martín Cabrera MD [address] [place] [address] PCP - General Internal Medicine 12/27/12 Radha Dawson, Yen [address] [place] [address] Pharmacist Internal Medicine 05/24/24 documented as of this encounter
--- OUTSIDE RECORDS SUMMARY | 2024-05-31 19:06 | XMS_ITS | Encounter Summary ---
Author Organization [facility] Address [address] [place] [address] [place] [address] Care Team Providers Care Editor City Name Role Phone Martín Cabrera MD Primary Care Provider [phone] Reason for Referral * Consultation (Routine) - Pending Review Specialty Diagnoses / Procedures Referred By Sarah dickinsno Referred To Contact Pharmacy Diagnoses Type 2 diabetes mellitus with stage 3a chronic kidney disease, without long-term current use of insulin (CMS/HCC) Martín Cabrera MD [address] [place] [address] Phone: tel: fax: Referral ID Status Reason Start Date Expiration Date Visits Requested Visits Authorized [id number] Pending Review Consult and Treat 05/02/2024 05/02/2025 6 6 Encounter Details Date Type Department Care Team ([facility] st Contact Info) Description 05/02/2024 Orders Only [facility] MED & PEDS [address] [place] [address] Martín Cabrera MD [address] [place] [address] Type 2 diabetes mellitus with stage 3a [...] Description 06/07/2024 3:00 PM EST Medication Management [facility] MED & PEDS 505 [place] [address] Radha Dawson, PharmD [address] [place], [place] [phone] Scheduled Referrals Name Type Priority Associated Diagnoses [...] Primary documented in this encounter Care Teams Editor City Relationship Specialty Start Date End Date Martín Cabrera MD [address] [place], [place] [phone] PCP - General Internal Medicine 12/27/12 documented as of this encounter
--- OUTSIDE RECORDS SUMMARY | 2024-05-31 19:06 | XMS_ITS | Encounter Summary ---
Author Organization [employer] Address [address] [facility] 7t [place] [address] Care Team Providers Care Experimental Mechanic Name Role Phone Martín Cabrera MD Primary Care Provider [phone] Encounter Details Date Type Department Care Team ([facility] st Contact Info) Description 05/02/[address] [facility] MED & PEDS [address] [place], [place] [phone] Radha Dawson, PharmD [address] [place] [address] Social History Tobacco Use Types Packs/Day Years [...] Description 06/07/2024 3:00 PM EST Medication Management [facility] MED & PEDS 505 [place] [address] Radha Dawson, Yen [address] [place] [address] documented as of this encounter Visit Diagnoses Not on filedocumented in this encounter Care Teams Experimental Mechanic Relationship Specialty Start Date End Date Martín Cabrera MD 505 [place] [address] PCP - General Internal Medicine 12/27/12 documented as of this encounter
--- OUTSIDE RECORDS SUMMARY | 2024-05-31 19:06 | XMS_ITS | Encounter Summary ---
Author Organization [employer] Address [address] [facility] 7 [place] [address] Care Team Providers Care Spinning Operator Name Role Phone Martín Cabrera MD Primary Care Provider [phone] Reason for Visit * Reason Comments Pre-visit Planning SDOH screening negat kaye and Tobacco screening negative Encounter Details Date Type Department Care Team (Late st Contact Info) Description 05/15/2024 Patient Outreach [facility] 230 [place] [address] Martín Cabrera MD [address] [place] [phone] Pre-visit Planning (SDOH screening negative and Tobacco [...] Wednesdays, and Walk-In Urgent Care Located in [facility]. Patient provided with after-hours line for [facility], , which offer night time triageservice and option to transfer to director of corporate sponsorships provider if needed. Patient advised to bring to appointment a photo id and insurance card. Appropriate screenings completed in anticipation of appointment. documented in this encounter Plan of Treatment Upcoming Encounters Date Type Department Care Team (Late st Contact Info) Description 06/07/2024 3:00 PM EST Medication Management [facility] MED & PEDS [address] [place] [address] Radha Dawson, PericoD 230 [place] [address] documented as of this encounter Visit Diagnoses Not on filedocumented in this encounter Care Teams Spinning Operator Relationship Specialty Start Date End Date Martín Cabrera MD 505 [place] [address] PCP - General Internal Medicine 12/27/12 documented as of this encounter
--- OUTSIDE RECORDS SUMMARY | 2024-05-31 19:06 | XMS_ITS | Clinical Summary ---
Author Organization [employer] Address [address] [place] [address] 7t [place] [address] Care Team Providers Care Soup Mixer Name Role Phone Martín Cabrera MD Primary Care Provider [phone] Radha Dawson PharmD Unavailable [phone] Allergies Active Allergy Reactions Criticality Noted Date [...] disease, without long-term current use of insulin ([facility]) Use to test blood sugar 2 times daily 100 each 12 11/23/19 24 2024 Active Lancets miscIndications:T ype 2 diabetes mellitus with stage 3a chronic kidney disease, without long-term current use of insulin (CMS/[facility]) Use to test blood sugar 2 times daily 100 each 11/23/19 24 Active Alcohol Swabs 70 % padsIndications:T ype 2 diabetes mellitus with stage 3a chronic kidney disease, without long-term current use of insulin (CMS/HCC) Use to test blood sugar 2 times daily 100 each 11/23/19 24 Active Blood Glucose Monitoring Suppl (FreeStyle [place] Lite) w/Device kitIndications:Ty pe 2 diabetes mellitus with stage 3a chronic kidney disease, without long-term current use of insulin (CMS/[facility]) Use to test blood sugar 2 times daily 1 kit 11/23/19 24 Active amLODIPine (Norvasc) 10 MG tabletIndications :Essential hypertension TAKE ONE TABLET EVERY MORNING 90 tablet 03/16/20 Active metFORMIN (Glucophage) 500 MG tabletIndications :Type 2 diabetes mellitus with stage 3a chronic kidney disease, without long-term current use of insulin (CMS/[facility]) Take 1 tablet (500 mg) by mouth [...] Encounters Date Type Department Care Team Description 05/31/2024 Telephone [facility] MED & PEDS 505 [place] [address] Martín Cabrera MD 05/31/[address] [address] Martín Cabrera MD 05/30/2024 Orders Only [address] [address] Martín Cabrera MD Microcytic anemia (Primary Dx) 05/29/2024 3:30 PM EST Office Visit [facility] MED & PEDS [address] [place] [address] Martín Cabrera MD Type 2 diabetes mellitus with stage 3a chronic kidney disease, without long-term current use of insulin (CMS/HCC) (Primary Dx); Mixed hyperlipidemia; Primary hypertension; Screening for colon cancer; Encounter for immunization 05/29/2024 Travel 05/25/2024 Telephone [facility] & P[facility]S [address] [place] [address] Martín Cabrera MD CHART PREP 05/24/2024 2:30 PM EST Telemedicine [facility] MED & PEDS [address] [place] [address] Radha Dawson PharmD Type 2 diabetes mellitus with stage 3a chronic kidney disease, without long-term current use of insulin (CMS/HCC) (Primary Dx) 05/15/2024 Patient Outreach [address] [address] Martín Cabrera MD Pre-visit Planning (SDOH screening negative and Tobacco screening negative) 05/07/2024 Refill [facility] MED & PEDS 505 [place] [address] Martín Cabrera MD Primary hypertension 05/02/2024 Orders Only [facility] CHC MED & PEDS [address] [place] [address] Martín Cabrera MD Type 2 diabetes mellitus with stage 3a chronic kidney disease, without long-term current use of insulin ([facility]) (Primary Dx) 05/02/2024 Telephone [facility]S [address] [place] [address] Radha Dawson, Yen 04/20/2024 Refill [facility] MED & PEDS [address] [place] [address] Martín Cabrera MD Type 2 diabetes mellitus with stage 3a chronic kidney disease, without long-term current use of insulin ([facility]); Mixed hyperlipidemia; Primary hypertension; Essential hypertension 04/19/2024 Travel 04/17/2024 Telephone [facility] [address] [place] [address] Martín Cabrera MD Chart Prep 04/17/2024 Telephone [facility] & PEDS [address] [place] [address] Martín Cabrera MD Appointment Request 03/16/2024 Refill [facility] & [facility]S [address] [place] [address] Martín Cabrera MD Essential hypertension from Last [...] [facility] [address] [place] [address] Radha Dawson, PharmD [address] [place], [place] [phone] Health Maintenance Due Date Last Done Comments [...] Procedure Name Priority Date/Time Associated Diagnosis Comments RETICULOCYTE COUNT Routine 05/31/2024 3: 46 PM EST Microcytic anemia FERRITIN Routine 05/31/2024 3:46 PM EST Microcytic anemia IRON AND TOTAL IRON BINDING CAPACITY Routine 05/31/2024 3:46 PM EST Microcytic anemia TSH W/REFLEX TO FT4 Routine 05/29/2024 4 [...] without long-term current use of insulin (CMS/HCC) from Last 3 Months or Most Recently Relevant to Health Maintenance Results * Iron And Total Iron Binding Capacity (05/31/2024 3:46 PM EST) [facility] Iron 101 45 - 160 mcg/dL [facility] Total Iron Binding Capacity 269 228 - 428 mcg/dL [facility] Percent Iron Saturation 38 15 - 50 % [facility] Unsaturated Iron Binding 168 ug/dL [facility] Blood Venous blood specimen / Unknown 05/31/2024 3:46 PM EST 05/31/2024 6:11 PM EST us Martín Cabrera MD LAB BLOOD ORDERABLES Final Result [facility] [address] [place] [address] [phone] * (ABNORMAL) Reticulocyte Count (05/31/2024 3:46 PM EST) Reticulocytes Absolute 0.072 0.026 - 0.095 X10*6/uL [facility] Immature Retic Fraction 11.8 2.3 - 13.4 % [facility] Retic HGB Equivalent 28.2(L) 30.0 - 35.0 pg [facility] Reticulocyte Percent 1.4 0.5 - 1.8 % [facility] Blood Venous blood specimen / Unknown 05/31/2024 3:46 PM EST 05/31/2024 6:11 PM EST Martín Cabrera MD LAB BLOOD ORDERABLES Final Result Performing Organization Address [facility]/ZIP Co de Phone Number [facility] [address] [place] [phone] * Ferritin (05/31/2024 3:46 PM EST) Pathologist [facility] Ferritin 175 20 - 250 ng/mL [facility] Blood Venous blood specimen / Unknown 05/31/2024 3:46 PM EST 05/31/2024 6:11 PM EST us Martín Cabrera MD LAB BLOOD ORDERABLES Final Result Performing Organization Address [facility] Co de Phone Number [facility] [address] [place] [phone] * TSH W/Reflex to FT4 (05/29/2024 4:08 PM EST) Pathologist [facility] TSH reflex Free T4 2.06 0.32 - 4.0 uIU/mL [facility] Blood Venous blood specimen / Unknown 05/29/2024 4:08 PM EST 05/29/2024 6:02 PM EST Martín Cabrera MD LAB BLOOD ORDERABLES Final Result Performing Organization Address [facility] Co de Phone Number [facility] [address] [place] [phone] * (ABNORMAL) CBC auto differential (05/29/2024 4:08 PM EST) White Blood Count 7.6 4.8 - 10.8 X10*3/uL [facility] Red Blood Count 5.43 4.60 - 5.80 X10*6/uL [facility] Hemoglobin 13.0(L) 14.0 - 18.0 g/dl [facility] Hematocrit 42.3 42.0 - 52.0 % [facility] Mean Corpuscular Volume 77.9(L) 80.0 - 98.0 fL [facility] Mean Corpuscular Hemoglobin 23.9(L) 27.0 - 33.0 pg [facility] Mean Corpuscular HGB Conc 30.7(L) 31.0 - 36.0 g/dl [facility] Red Cell Distribution Width 13.2 11.0 - 16.0 % [facility] Platelet Count 179 160 - 400 X10*3/uL [facility] Mean Platelet Volume 11.7 9.4 - 12.4 fL [facility] Neutrophils Percent Auto 59.7 45 - 73 % [facility] Imm Gran Pct Auto 0.1 0.0 - 0.4 % [facility] Lymphocytes Percent Auto 30.1 20 - 40 % [facility] Monocytes Percent Auto 8.9 2 - 11 % [facility] Eosinophils Percent Auto 0.8 0 - 4 % [facility] Basophils Percent Auto 0.4 0 - 2 % [facility] NRBC Pct Auto 0.0 0.0 - 0.2 /100WBC [facility] Neutrophils Absolute Auto 4.5 2.0 - 8.3 x10*3/uL [facility] Imm Gran Abs Auto 0.01 0.00 - 0.03 X10*3/uL [facility] Lymphocytes Absolute Auto 2.3 1.2 - 4.9 X10*3/uL [facility] Monocytes Absolute Auto 0.7 0.1 - 1.2 X10*3/uL [facility] Eosinophils Absolute Auto 0.1 0.0 - 0.4 X10*3/uL [facility] Basophils Absolute Auto 0.0 0.0 - 0.2 X10*3/uL [facility] NRBC Abs Auto 0.000 0.0 - 0.012 X10*3/uL [facility] Blood Venous blood specimen / Unknown 05/29/2024 4:08 PM EST 05/29/2024 6:02 PM EST us Martín Cabrera MD LAB BLOOD ORDERABLES Final Result [facility] [address] [place], [place] [phone] * (ABNORMAL) Comprehensive Metabolic Panel (05/29/2024 4:08 PM EST) Sodium 139 135 - 145 mmol/L [facility] Potassium 3.8 3.3 - 5.1 mmol/L [facility] Chloride 101 96 - 108 mmol/L [facility] Carbon Dioxide 27 22 - 29 mmol/L [facility] Anion Gap 15 12 - 20 [facility] Urea Nitrogen (BUN) 19(H) 9 - 16 mg/dL [facility] Creatinine, Serum 1.04 0.5 - 1.4 mg/dL [facility] Estimated Glomerular Filt Rate >60 [facility] Comment:Chronic Kidney Disea se: Estimated GFR < 60 mL/min/[id number] Kidney Disease: Estimated GFR < 15 mL/min/1.73m2 Glucose 132(H) 60 - 115 mg/dL [facility] Calcium 9.6 8.4 - 10.2 mg/dL [facility] Bilirubin, Total 0.8 0.0 - 1.0 mg/dL [facility] Aspartate Amino Transferase 27 5 - 37 U/L [facility] Alanine Aminotransferase 23 0 - 40 U/L [facility] Total Protein 8.7(H) 6.5 - 8.0 g/dL [facility] Albumin Level 4.7 3.5 - 5.0 g/dL [facility] Alkaline Phosphatase 60 39 - 117 U/L [facility] Blood Venous blood specimen / Unknown 05/29/2024 4:08 PM EST 05/29/2024 6:02 PM EST Martín Cabrera MD LAB BLOOD ORDERABLES Final Result [facility] [address] [place] [phone] * POCT Glucose (05/29/2024 3:57 PM EST) Pathologist [facility] Glucose Blood, POC 137 60 - 200 mg/dL [employer] Media Lot # [id number] Lot# Expiration Date [id number] Comment:random Blood Capillary blood specimen / Unknown 05/29/2024 3:57 PM EST Martín Cabrera MD POINT OF CARE TEST ENTER/ED IT ORDERABLES Final Result * (ABNORMAL) POCT HGB A1C (05/29/2024 3:55 PM EST) Pathologist [facility] Hemoglobin A1C 9.2(A) 4.0 - 6.0 % QC Media Lot # [id number] Lot# Expiration Date Blood 05/29/2024 3:55 PM EST Martín Cabrera MD POINT OF CARE TEST ENTER/ED IT ORDERABLES Final Result * Hepatitis C Antibody with Reflex to HCV, RNA, Quantitative, Real-Time PCR (11/23/2023 3:48 PM EDT) Pathologist [facility] Hepatitis C Antibody Nonreactive Nonreactive [facility] Comment:Antibodies to HCV no t detected; does not exclude early acuteHCV infection. Blood Venous blood specimen / Unknown 11/23/2023 3:48 PM EDT 11/23/2023 5:57 PM EDT us Martín Cabrera MD LAB BLOOD ORDERABLES Final Result Performing Organization Address [facility]/ZIP Co de Phone Number [facility] [address] [place] [phone] [phone] * (ABNORMAL) Lipid Panel, Standard (11/23/2023 3:48 PM EDT) Triglycerides 129 <150 mg/dL [facility] Comment:Desirable Triglyceri de: less than 150 mg/dLBorderline High Triglyceride 150-199 mg/dLHigh Triglyceride: 200-499 mg/dLVery High Triglyceride: greater than or equal to 5OO mg/dL Cholesterol 140 <200 mg/dL [facility] Comment:Desirable Cholestero l: less than 200 mg/dLBorderline High Cholesterol: 200-239 mg/dLHigh Cholesterol: greater than 239 mg/dL LDL Cholesterol Calculated 76 <100 mg/dL [facility] Comment:Desirable LDL: less than 100 mg/dLNear Optimal/Above Optimal LDL: 110- 129 mg/dLBorderline High LDL: 130-159 mg/dLHigh LDL: 160-189 mg/dLVery High LDL: greater than or equal to 190 mg/dL HDL Cholesterol 39(L) >40 mg/dL [facility] Comment:Desirable HDL: great er than 40 mg/dL Note: This HDL assay may give artificially low results in patients with liver disease. Blood Venous blood specimen / Unknown 11/23/2023 3:48 PM EDT 11/23/2023 5:57 PM EDT us Martín Cabrera MD LAB BLOOD ORDERABLES Final Result Performing Organization Address City/[facility]/ZIP Co de Phone Number [facility] [address] [place] [address] [phone] from Last 3 Months or Most Recently Relevant to Health Maintenance Insurance [facility] MEDICARE ADVANTAGE HMO Care Teams Soup Mixer Relationship Specialty Start Date End Date Martín Cabrera MD [address] [place] [address] PCP - General Internal Medicine 12/27/12 Radha Dawson PharmD [address] [place] [address] Pharmacist Internal Medicine 05/24/24
--- OUTSIDE RECORDS SUMMARY | 2024-05-31 19:06 | XMS_ITS | Encounter Summary ---
Author Organization [employer] Address [address] [place] [address] 7 [place] [address] Care Team Providers Care Executive Asst Name Role Phone Martín Cabrera MD Primary Care Provider [phone] Reason for Visit * Reason Onset Date Comments Med Refill 05/07/2024 Encounter Details Date Type Department Care Team ([facility] st Contact Info) Description 05/07/2024 Refill [facility] MED & PEDS [address] [place] [address] Martín Cabrera MD [address] [place] [address] Primary hypertension Social History Tobacco Use Types [...] 3:00 PM EST Medication Management [facility] MED & PEDS [address] [place], [place] [phone] Radha Dawson, PharmD [address] [place] [address] documented as of this encounter Visit Diagnoses Diagnosis Primary hypertension Unspecified essential hypertension documented in this encounter Care Teams Executive Asst Relationship Specialty Start Date End Date Martín Cabrera MD [address] [place], [place] [phone] PCP - General Internal Medicine 12/27/12 documented as of this encounter
--- OUTSIDE RECORDS SUMMARY | 2024-05-31 19:06 | XMS_ITS | Encounter Summary ---
Author Organization [employer] Address [address] [facility] 7 [place] [address] Care Team Providers Care Assistant Teacher Primary Name Role Phone Martín Cabrera MD Primary Care Provider [phone] Radha Dawson PharmD Unavailable [phone] Encounter Details Date Type Department Care Team ([facility] st Contact Info) Description 01/02/2024 Orders Only [facility] MED & PEDS [address] [place], [place] [phone] Martín Cabrera MD [address] [place] [address] Primary hypertension (Primary Dx) Social History Tobacco [...] Description 06/07/2024 3:00 PM EST Medication Management [facility] MED & PEDS [address] [place] [address] Radha Dawson PharmD [address] [place] [address] documented as of this encounter Visit Diagnoses Diagnosis Primary hypertension- Primary Unspecified essential hypertension documented in this encounter Care Teams Assistant Teacher Primary Relationship Specialty Start Date End Date Martín Cabrera MD [address] [place] [address] PCP - General Internal Medicine 12/27/12 Radha Dawson PharmD [address] [place] [address] Pharmacist Internal Medicine 05/24/24 documented as of this encounter
--- OUTSIDE RECORDS SUMMARY | 2024-05-31 19:06 | XMS_ITS | Encounter Summary ---
Author Organization [employer] Address 75 [facility] 7 [place] [address] Care Team Providers Care Homebirth Midwife Name Role Phone Martín Cabrera MD Primary Care Provider [phone] Radha Dawson PharmD Unavailable [phone] Encounter Details Date Type Department Care Team (Late st Contact Info) Description 05/30/2024 Orders Only [facility] MEDICINE 230 [place] [address] Martín Cabrera MD 505 [place] [address] Microcytic anemia (Primary Dx) Social History Tobacco [...] is your housing situation today? I have doreenhamrony cavanaugh 05/15/[address] you [...] Description 06/07/2024 3:00 PM EST Medication Management [facility] MED & PEDS 505 [place] [address] Radha Dawson, PharmD 230 [place] [address] documented as of this encounter Procedures Procedure Name Priority Date/Time Associated Diagnosis Comments IRON AND TOTAL IRON BINDING CAPACITY Routine 05/31/2024 3:46 PM EST Microcytic anemia RETICULOCYTE COUNT Routine 05/31/2024 3: 46 PM EST Microcytic anemia FERRITIN Routine 05/31/2024 3:46 PM EST Microcytic anemia documented in this encounter Results * (ABNORMAL) Reticulocyte Count (05/31/2024 3:46 PM EST) Reticulocytes Absolute 0.072 0.026 - 0.095 X10*6/uL [facility] Immature Retic Fraction 11.8 2.3 - 13.4 % [facility] Retic HGB Equivalent 28.2(L) 30.0 - 35.0 pg [facility] Reticulocyte Percent 1.4 0.5 - 1.8 % [facility] Blood Venous blood specimen / Unknown 05/31/2024 3:46 PM EST 05/31/2024 6:11 PM EST us Martín Cabrera MD LAB BLOOD ORDERABLES Final Result Performing Organization Address [facility] Co de Phone Number [facility] [address] [place] [phone] * Ferritin (05/31/2024 3:46 PM EST) Ferritin 175 20 - 250 ng/mL [facility] Blood Venous blood specimen / Unknown 05/31/2024 3:46 PM EST 05/31/2024 6:11 PM EST us Martín Cabrera MD LAB BLOOD ORDERABLES Final Result Performing Organization Address [facility] Co de Phone Number [facility] [address] [place] [phone] * Iron And Total Iron Binding Capacity (05/31/2024 3:46 PM EST) Iron 101 45 - 160 mcg/dL [facility] Total Iron Binding Capacity 269 228 - 428 mcg/dL [facility] Percent Iron Saturation 38 15 - 50 % [facility] Unsaturated Iron Binding 168 ug/dL [facility] Blood Venous blood specimen / Unknown 05/31/2024 3:46 PM EST 05/31/2024 6:11 PM EST us Martín Cabrera MD LAB BLOOD ORDERABLES Final Result Performing Organization Address [facility] Co de Phone Number [facility] [address] [place] [phone] documented in this encounter Visit Diagnoses Diagnosis Microcytic anemia- Primary Unspecified iron deficiency anemia documented in this encounter Additional Health Concerns Assessment Noted Time PHQ-9 Depression Total Score: 2 05/29/19 4:27 PM EST documented as of this encounter Care Teams Homebirth Midwife Relationship Specialty Start Date End Date Martín Cabrera MD 505 [place] [address] PCP - General Internal Medicine 12/27/12 Radha Dawson PharmD [address] [place] [phone] Pharmacist Internal Medicine 05/24/24 documented as of this encounter
--- OUTSIDE RECORDS SUMMARY | 2024-05-31 19:06 | XMS_ITS | Encounter Summary ---
Author Organization [employer] Address 75 [facility] 7t [place] [address] Care Team Providers Care Coordinator Of Genetic Services Name Role Phone Martín Cabrera MD Primary Care Provider [phone] Radha Dawson PharmD Unavailable [phone] Encounter Details Date Type Department Care Team [...] [facility] MED & PEDS 505 [place] [address] Radha Dawosn PharmD 230 [place] [address] documented as of this encounter Visit Diagnoses Not on filedocumented in this encounter Additional Health Concerns Assessment Noted Time PHQ-9 Depression Total Score: 2 05/29/19 4:27 PM EST documented as of this encounter Care Teams Coordinator Of Genetic Services Relationship Specialty Start Date End Date Martín Cabrera MD 505 [place] [address] PCP - General Internal Medicine 12/27/12 Radha Dawson PharmD 230 [place] [address] Pharmacist Internal Medicine 05/24/24 documented as of this encounter
--- OUTSIDE RECORDS SUMMARY | 2024-05-31 19:06 | XMS_ITS | Encounter Summary ---
Author Organization [employer] Address [address] [place] [address] 7 [place] [address] Care Team Providers Care Riveter Name Role Phone Martín Cabrera MD Primary Care Provider [phone] Radha Dawson PharmD Unavailable Reason for Visit * Reason Onset Date Comments CHART PREP 05/25/2024 Encounter Details Date Type Department Care Team ([facility] Contact Info) Description 05/25/2024 Telephone [facility] MED & PEDS 505 [place] [address] Martín Cabrera MD 505 [place] [address] CHART PREP Social History Tobacco Use Types [...] Description 06/07/2024 3:00 PM EST Medication Management [facility] MED & PEDS [address] [place], [place] [phone] Radha Dawson PharmD 230 [place] [address] documented as of this encounter Visit Diagnoses Not on filedocumented in this encounter Care Teams Riveter Relationship Specialty Start Date End Date Martín Cabrera MD 505 [place] [address] PCP - General Internal Medicine 12/27/12 Radha Dawson PharmD 230 [place] [address] Pharmacist Internal Medicine 05/24/24 documented as of this encounter
[2024-06-03 13:48] LABS: TS Negative Control Passed; TS Panel A 0; TS Panel B 1; TS Positive Control Passed; TSpotTB Negative (Negative)
== END 2024-05-31 15:44 | disposition home or self-care (01) ==
LOC: HO.CHCLDS 15:43
PROVIDERS: Visit Provider Internal Medicine
DX: D50.9 Iron deficiency anemia, unspecified (principal); Z11.1 Encounter for screening for respiratory tuberculosis
CPT/HCPCS: 36415; 82728; 83540; 85045; 86481

== ENCOUNTER 2024-06-07 15:57 | Outpatient (REF) | payer SELFPAY ==
[2024-06-07 18:55] LABS: Creatinine Urine 13.37 mg/dL; Microalbum/Creatinine Ratio Ur 291.6 ug/mg cr (<30)
--- OUTSIDE RECORDS SUMMARY | 2024-06-07 19:14 | XMS_ITS | Encounter Summary ---
Author Organization [employer] Address [address] [place] [address] [facility] [place] [address] Care Team Providers Care Learning And Development Director Name Role Phone Martín Cabrera MD Primary Care Provider [phone] Radha Dawson PharmD Unavailable [phone] Encounter Details Date Type Department Care Team (Late st Contact Info) Description 12/10/[address] [facility] MED & PEDS 505 [place] [address] Martín Cabrera MD 505 [place] [address] Type 2 diabetes mellitus with stage 3a chronic kidney disease, without long-term current use of insulin ([facility]) (Primary Dx) Social History Tobacco Use [...] Care Team (Late st Contact Info) Description 08/23/2024 2:00 PM EDT Medication Management [facility] MED & PEDS 505 [place] [address] Radha Dawson, PharmD 230 [place], [place] [phone] documented as of this encounter Visit Diagnoses Diagnosis Type 2 diabetes mellitus with stage 3a chronic kidney disease, without long-term current use of insulin ([facility])- Primary documented in this encounter Care Teams Learning And Development Director Relationship Specialty Start Date End Date Martín Cabrera MD 505 [place] [address] PCP - General Internal Medicine 12/27/12 Radha Dawson PharmD 230 [place], [place] [phone] Pharmacist Internal Medicine 05/24/24 documented as of this encounter
--- OUTSIDE RECORDS SUMMARY | 2024-06-07 19:14 | XMS_ITS | Encounter Summary ---
Author Organization [facility] Address [address] [place] [address] [facility] [place] [address] Care Team Providers Care Armored Service Technician Name Role Phone Martín Cabrera MD Primary Care Provider [phone] Radha Dawson PharmD Unavailable [phone] Encounter Details Date Type Department Care Team (Late st Contact Info) Description 10/01/2022 Orders Only [facility] MED & PEDS 505 [place] [address] Martín Cabrera MD 505 [place] [address] Microcytic anemia (Primary Dx) Social History Tobacco [...] Description 08/23/2024 2:00 PM EDT Medication Management [facility] MED [facility] PED[facility] 505 [place] [address] Radha Dawson, PharmD 230 [place], [place] [phone] Scheduled Orders Name Type Priority Associated Diagnoses Orde r Schedule Iron, TIBC And Ferritin Panel Lab Routine Microcytic anemia Expected: 10/01/2022 (Approximate), Expires: 10/02/2023 documented as of this encounter Visit Diagnoses Diagnosis Microcytic anemia- Primary Unspecified iron deficiency anemia documented in this encounter Care Teams Armored Service Technician Relationship Specialty Start Date End Date Martín Cabrera MD [address] [place] [address] PCP - General Internal Medicine 12/27/12 Radha Dawson PharmD [address] [place] [phone] Pharmacist Internal Medicine 05/24/24 documented as of this encounter
--- OUTSIDE RECORDS SUMMARY | 2024-06-07 19:15 | XMS_ITS | Encounter Summary ---
Author Organization [employer] Address [address] [place] [address] 7 [place] [address] Care Team Providers Care Fire Sprinkler Apparatus Inspector Name Role Phone Martín Cabrera MD Primary Care Provider [phone] Radha Dawson PharmD Unavailable [phone] Reason for Visit * Reason Onset Date Comments CHART PREP 05/25/2024 Encounter Details Date Type Department Care Team ([facility] Contact Info) Description 05/25/2024 Telephone [facility] MED & PEDS 505 [place] [address] Martín Cabrera MD 505 [place] [address] CHART PREP Social History Tobacco Use Types [...] Description 08/23/2024 2:00 PM EDT Medication Management [facility] MED & PEDS [address] [place], [place] [phone] Radha Dawson PharmD 230 [place] [address] documented as of this encounter Visit Diagnoses Not on filedocumented in this encounter Care Teams Fire Sprinkler Apparatus Inspector Relationship Specialty Start Date End Date Martín Cabrera MD [address] [place], [place] PCP - General Internal Medicine 12/27/12 Radha Dawson PharmD 230 [place] [address] Pharmacist Internal Medicine 05/24/24 documented as of this encounter
--- OUTSIDE RECORDS SUMMARY | 2024-06-07 19:15 | XMS_ITS | Encounter Summary ---
Author Organization [employer] [facility] Address [address] [place] [address] [facility] [place] [address] Care Team Providers Care Medicare Nurse Name Role Phone Martín Cabrera MD Primary Care Provider [phone] Radha Dawson PharmD Unavailable [phone] Reason for Referral * Consultation (Routine) - Authorized Specialty Diagnoses / Procedures Referred By Contanabela t Referred To Contact Pharmacy Diagnoses Type 2 diabetes mellitus with stage 3a chronic kidney disease, without long-term current use of insulin (CMS/HCC) Primary hypertension Martín Cabrera MD 505 [place] [address] Phone: tel: fax: Referral ID Status Reason Start Date Expiration Date Visits Requested Visits Authorized [id number] Authorized Consult and Treat 05/29/2024 05/29/2025 6 6 Encounter Details Date Type Department Care Team (Late st Contact Info) Description 05/29/2024 3:30 PM EST Office Visit [facility] [address] [place] [address] Martín Cabrera MD [address] [place] [address] Type 2 diabetes mellitus with stage 3a [...] of diabetes and hypertension. 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 Blood Glucose Monitoring Suppl (FreeStyle Peotone Lite) w/Device kit Use to test blood [...] disease, without long-term current use of insulin ([facility]) Comments: Uncontrolled due to poor compliance to [...] Description 08/23/2024 2:00 PM EDT Medication Management [facility] MED & PEDS 505 [place] [address] Radha Dawson, PharmD 230 [place] [address] Scheduled Orders Name Type Priority Associated Diagnoses Orde r Schedule Cologuard?? colon cancer screening Lab Routine Screening for colon cancer Expected: 05/29/2024 (Approximate), Expires: 05/29/2025 Scheduled Referrals Name Type Priority Associated Diagnoses Orde r Schedule Referral to Pharmacy CDTM Outpatient Referral Routine Type 2 diabetes mellitus with stage 3a chronic kidney disease, without long-term current use of insulin ([facility]/HCC) Primary hypertension Ordered: 05/29/2024 documented as of this encounter Procedures Procedure Name Priority Date/Time Associated Diagnosis Comments TSH W/REFLEX TO FT4 Routine 05/29/2024 4 :08 PM EST Type 2 diabetes mellitus with stage 3a chronic kidney disease, without long-term current use of insulin ([facility]) CBC WITH AUTO DIFFERENTIAL Routine 05/29/2024 4:08 PM EST Type 2 diabetes mellitus with stage 3a chronic kidney disease, without long-term current use of insulin ([facility]) COMPREHENSIVE METABOLIC PANEL Routine 05/29/2024 4:08 PM EST Type 2 diabetes mellitus with stage 3a chronic kidney disease, without long-term current use of insulin ([facility]) POCT GLUCOSE Routine 05/29/2024 3:57 PM EST Type 2 diabetes mellitus with stage 3a chronic kidney disease, without long-term current use of insulin ([facility]) POCT GLYCATED HEMOGLOBIN, TOTAL Routine 05/29/2024 3:55 PM EST Type 2 diabetes mellitus with stage 3a chronic kidney disease, without long-term current use of insulin ([facility]) documented in this encounter Results * TSH W/Reflex to FT4 (05/29/2024 4:08 PM EST) TSH reflex Free T4 2.06 0.32 - 4.0 uIU/mL [facility] Blood Venous blood specimen / Unknown 05/29/2024 4:08 PM EST 05/29/2024 6:02 PM EST us Martín Cabrera MD LAB BLOOD ORDERABLES Final Result [facility] [address] [place] [address] [phone] * (ABNORMAL) Comprehensive Metabolic Panel (05/29/2024 4:08 PM EST) Sodium 139 135 - 145 mmol/L [facility] Potassium 3.8 3.3 - 5.1 mmol/L [facility] Chloride 101 96 - 108 mmol/L [facility] Carbon Dioxide 27 22 - 29 mmol/L [facility] Anion Gap 15 12 - 20 [facility] Urea Nitrogen (BUN) 19(H) 9 - 16 mg/dL [facility] Creatinine, Serum 1.04 0.5 - 1.4 mg/dL [facility] Estimated Glomerular Filt Rate >60 [facility] Comment:Chronic Kidney Disea se: Estimated GFR < 60 mL/min/1.08b2Rwpuoh Kidney Disease: Estimated GFR < 15 mL/min/1.73m2 Glucose 132(H) 60 - 115 mg/dL [facility] Calcium 9.6 8.4 - 10.2 mg/dL [facility] Bilirubin, Total 0.8 0.0 - 1.0 mg/dL [facility] Aspartate Amino Transferase 27 5 - 37 U/L [facility] Alanine Aminotransferase 23 0 - 40 U/L [facility] Total Protein 8.7(H) 6.5 - 8.0 g/dL [facility] Albumin Level 4.7 3.5 - 5.0 g/dL [facility] Alkaline Phosphatase 60 39 - 117 U/L [facility] Blood Venous blood specimen / Unknown 05/29/2024 4:08 PM EST 05/29/2024 6:02 PM EST us Martín Cabrera MD LAB BLOOD ORDERABLES Final Result [facility] [address] [place], [place] [phone] * (ABNORMAL) CBC auto differential (05/29/2024 4:08 PM EST) White Blood Count 7.6 4.8 - 10.8 X10*3/uL [facility] Red Blood Count 5.43 4.60 - 5.80 X10*6/uL [facility] Hemoglobin 13.0(L) 14.0 - 18.0 g/dl [facility] Hematocrit 42.3 42.0 - 52.0 % [facility] Mean Corpuscular Volume 77.9(L) 80.0 - 98.0 fL [facility] Mean Corpuscular Hemoglobin 23.9(L) 27.0 - 33.0 pg [facility] Mean Corpuscular HGB Conc 30.7(L) 31.0 - 36.0 g/dl [facility] Red Cell Distribution Width 13.2 11.0 - 16.0 % [facility] Platelet Count 179 160 - 400 X10*3/uL [facility] Mean Platelet Volume 11.7 9.4 - 12.4 fL [facility] Neutrophils Percent Auto 59.7 45 - 73 % [facility] Imm Gran Pct Auto 0.1 0.0 - 0.4 % [facility] Lymphocytes Percent Auto 30.1 20 - 40 % [facility] Monocytes Percent Auto 8.9 2 - 11 % [facility] Eosinophils Percent Auto 0.8 0 - 4 % [facility] Basophils Percent Auto 0.4 0 - 2 % [facility] NRBC Pct Auto 0.0 0.0 - 0.2 /100WBC [facility] Neutrophils Absolute Auto 4.5 2.0 - 8.3 x10*3/uL [facility] Imm Gran Abs Auto 0.01 0.00 - 0.03 X10*3/uL [facility] Lymphocytes Absolute Auto 2.3 1.2 - 4.9 X10*3/uL [facility] Monocytes Absolute Auto 0.7 0.1 - 1.2 X10*3/uL [facility] Eosinophils Absolute Auto 0.1 0.0 - 0.4 X10*3/uL [facility] Basophils Absolute Auto 0.0 0.0 - 0.2 X10*3/uL [facility] NRBC Abs Auto 0.000 0.0 - 0.012 X10*3/uL [facility] Blood Venous blood specimen / Unknown 05/29/2024 4:08 PM EST 05/29/2024 6:02 PM EST us Martín Cabrera MD LAB BLOOD ORDERABLES Final Result [facility] [address] [place] [address] [phone] * POCT Glucose (05/29/2024 3:57 PM [...] disease, without long-term current use of insulin ([facility])- Primary Mixed hyperlipidemia Primary hypertension Unspecified essential hypertension Screening for colon cancer Special screening for malignant neoplasms, colon Encounter for immunization documented in this encounter Additional Health Concerns Assessment Noted Time PHQ-9 Depression Total Score: 2 05/29/19 4:27 PM EST documented as of this encounter Care Teams Medicare Nurse Relationship Specialty Start Date End Date Martín Cabrera MD [address] [place] [address] PCP - General Internal Medicine 12/27/12 Radha Dawson PharmD [address] [place] [address] Pharmacist Internal Medicine 05/24/24 documented as of this encounter
--- OUTSIDE RECORDS SUMMARY | 2024-06-07 19:15 | XMS_ITS | Encounter Summary ---
Author Organization [employer] Address [address] [place] [address] 7 [place] [address] Care Team Providers Care Business Employment Specialist Name Role Phone Martín Cabrera MD Primary Care Provider [phone] Radha Dawson PharmD Unavailable [phone] Reason for Referral * Consultation (Routine) - Authorized Specialty Diagnoses / Procedures Referred By Contanabela dickinson Referred To Contact Gastroenterology Diagnoses Microcytic anemia Martín Cabrera MD [address] [place] [address] Phone: tel: fax: Vivi Lang MD [address] [place] [address] Phone: tel: fax: Referral ID Status Reason Start Date Expiration Date Visits Requested Visits Authorized [id number] Authorized Specialty Services Required 06/01/2024 06/01/2025 1 1 Encounter Details Date Type Department Care Team (Late st Contact Info) Description 05/30/2024 Orders Only [facility] MEDICINE [address] [place] [address] Martín Cabrera MD [address] [place], [place] [phone] Microcytic anemia (Primary Dx); Normocytic anemia Social History Tobacco Use Types Packs/Day Years [...] Description 08/23/2024 2:00 PM EDT Medication Management [facility] & PEDS [address] [place] [address] Radha Dawson, PharmD 230 [place] [address] Scheduled Referrals Name Type Priority Associated Diagnoses Order Schedule Referral to Gastroenterology Outpatient Referral Routine Microcytic anemia Expected: 06/01/2024 (Approximate), Expires: 06/01/2025 documented as of this encounter Procedures Procedure [...] Reticulocytes Absolute 0.072 0.026 - 0.095 X10*6/uL [facility] Immature Retic Fraction 11.8 2.3 - 13.4 % [facility] Retic HGB Equivalent 28.2(L) 30.0 - 35.0 pg [facility] Reticulocyte Percent 1.4 0.5 - 1.8 % [facility] Blood Venous blood specimen / Unknown 05/31/2024 3:46 PM EST 05/31/2024 6:11 PM EST us Martín Cabrera MD LAB BLOOD ORDERABLES Final Result Performing Organization Address [facility] Co de Phone Number [facility] [address] [place] [phone] * Ferritin (05/31/2024 3:46 PM EST) Ferritin 175 20 - 250 ng/mL [facility] Blood Venous blood specimen / Unknown 05/31/2024 3:46 PM EST 05/31/2024 6:11 PM EST Martín Cabrera MD LAB BLOOD ORDERABLES Final Result Performing Organization Address [facility]/ZIP Co de Phone Number [facility] [address] [place] [phone] * Iron And Total Iron Binding Capacity (05/31/2024 3:46 PM EST) Iron 101 45 - 160 mcg/dL [facility] Total Iron Binding Capacity 269 228 - 428 mcg/dL [facility] Percent Iron Saturation 38 15 - 50 % [facility] Unsaturated Iron Binding 168 ug/dL [facility] Blood Venous blood specimen / Unknown 05/31/2024 3:46 PM EST 05/31/2024 6:11 PM EST Martín Cabrera MD LAB BLOOD ORDERABLES Final Result [facility] [address] [place] [phone] documented in this encounter Visit Diagnoses Diagnosis Microcytic anemia- Primary Unspecified iron deficiency anemia Normocytic anemia Unspecified anemia documented in this encounter Additional Health Concerns Assessment Noted Time PHQ-9 Depression Total Score: 2 05/29/19 4:27 PM EST documented as of this encounter Care Teams Business Employment Specialist Relationship Specialty Start Date End Date Martín Cabrera MD [address] [place] [address] PCP - General Internal Medicine 12/27/12 Radha Dawson PharmD [address] [place] [address] Pharmacist Internal Medicine 05/24/24 documented as of this encounter
--- OUTSIDE RECORDS SUMMARY | 2024-06-07 19:15 | XMS_ITS | Encounter Summary ---
Author Organization [facility] [place] [facility] Address [address] [facility] 7 [place] [address] Care Team Providers Care Outdoor Adventure Leader Name Role Phone Martín Cabrera MD Primary Care Provider [phone] Radha Dawson PharmD Unavailable [phone] Encounter Details Date Type Department Care Team ([facility] st Contact Info) Description 04/07/2023 Orders Only [facility] [address] [place], [place] [phone] Martín Cabrera MD [address] [place] [address] Type 2 diabetes mellitus with stage 3a chronic kidney disease, without long-term current use of insulin ([facility] Social History Tobacco Use [...] Description 08/23/2024 2:00 PM EDT Medication Management [facility] [address] [place] [address] Radha Dawson PharmD [address] [place] [address] documented as of this encounter Visit Diagnoses Diagnosis Type 2 diabetes mellitus with stage 3a chronic kidney disease, without long-term current use of insulin ([facility]) documented in this encounter Care Teams Outdoor Adventure Leader Relationship Specialty Start Date End Date Martín Cabrera MD [address] [place] [address] PCP - General Internal Medicine 12/27/12 Radha Dawson PharmD [address] [place] [address] Pharmacist Internal Medicine 05/24/24 documented as of this encounter
--- OUTSIDE RECORDS SUMMARY | 2024-06-07 19:15 | XMS_ITS | Encounter Summary ---
Author Organization [employer] Address [address] [facility] 7 [place] [address] Care Team Providers Care Chainstitch Hemmer Name Role Phone Martín Cabrera MD Primary Care Provider [phone] Reason for Visit * Reason Comments Pre-visit Planning SDOH screening negat kaye and Tobacco screening negative Encounter Details Date Type Department Care Team (Late st Contact Info) Description 05/15/2024 Patient Outreach [facility] [address] [place] [address] Martín Cabrera MD [address] [place] [phone] Pre-visit Planning (SDOH screening negative and Tobacco [...] Wednesdays, and Walk-In Urgent Care Located in [facility] [place]. Patient provided with after-hours line for [facility], , which offer night time triageservice and option to transfer to ultrasonographer provider if needed. Patient advised to bring to appointment a photo id and insurance card. Appropriate screenings completed in anticipation of appointment. documented in this encounter Plan of Treatment Upcoming Encounters Date Type Department Care Team (Late st Contact Info) Description 08/23/2024 2:00 PM EDT Medication Management [facility] [address] [place] [address] Radha Daswon, PericoD [address] [place] [address] documented as of this encounter Visit Diagnoses Not on filedocumented in this encounter Care Teams Chainstitch Hemmer Relationship Specialty Start Date End Date Martín Cabrera MD [address] [place], [place] [phone] PCP - General Internal Medicine 12/27/12 documented as of this encounter
--- OUTSIDE RECORDS SUMMARY | 2024-06-07 19:15 | XMS_ITS | Encounter Summary ---
Author Organization [employer] Address [address] [place] [address] 7 [place] [address] Care Team Providers Care International Affairs Vice President Name Role Phone Martín Cabrera MD Primary Care Provider [phone] Radha Dawson PharmD Unavailable [phone] Encounter Details Date Type Department Care Team ([facility] st Contact Info) Description 06/07/[address] [facility]ED[facility] [address] [place] [address] Martín Cabrera MD [address] [place] [address] Social History Tobacco Use Types Packs/Day Years [...] Description 08/23/2024 2:00 PM EDT Medication Management [facility] & PED[facility] [address] [place] [address] Radha Dawson, PharmD [address] [place] [address] documented as of this encounter Procedures Procedure Name Priority Date/Time Associated Diagnosis Comments ALBUMIN, RANDOM URINE W/CREATININE Routine 06/07/2024 3:57 PM EST documented in this encounter Results * (ABNORMAL) Albumin, Random Urine W/Creatinine (06/07/2024 3:57 PM EST) Creatinine, Urine 13.37 mg/dL [facility] Microalbumin Urine 39.0 mg/L H [facility] Microalbum Creatinine Ratio Ur 291.6(H) <30 ug/mg cr [facility] Comment:Albumin/Creatinine R atio Reference Ranges: Normal: < 30 ug/mg creatinine Microalbuminuria: 30 - 300 ug/mg creatinineClinical Albuminuria: > 300 ug/mg creatinine 06/07/2024 3:57 PM EST 06/07/2024 5:56 PM EST Martín Cabrera MD LAB URINE ORDERABLES Final Result [facility] [address] [place] [phone] [phone] documented in this encounter Visit Diagnoses Not on filedocumented in this encounter Additional Health Concerns Assessment Noted Time PHQ-9 Depression Total Score: 2 05/29/19 4:27 PM EST documented as of this encounter Care Teams International Affairs Vice President Relationship Specialty Start Date End Date Martín Cabrera MD [address] [place] [address] PCP - General Internal Medicine 12/27/12 Radha Dawson PharmD [address] [place] [address] Pharmacist Internal Medicine 05/24/24 documented as of this encounter
--- OUTSIDE RECORDS SUMMARY | 2024-06-07 19:15 | XMS_ITS | Encounter Summary ---
Author Organization [employer] [facility] Address [address] [facility] 7 [place] [address] Care Team Providers Care Prints And Drawings Curator Name Role Phone Martín Cabrera MD Primary Care Provider [phone] Radha Dawson PharmD Unavailable [phone] Reason for Visit * Consultation (Routine) - Pending Review Specialty Diagnoses / Procedures Referred By Contac t Referred To Contact Pharmacy Diagnoses Type 2 diabetes mellitus with stage 3a chronic kidney disease, without long-term current use of insulin (CMS/HCC) Martín Cabrera MD [address] [place] [address] Phone: tel: fax: Referral ID Status Reason Start Date Expiration Date Visits Requested Visits Authorized [id number] Pending Review Consult and Treat 05/02/2024 05/02/2025 6 6 Encounter Details Date Type Department Care Team ([facility] st Contact Info) Description 05/24/2024 2:30 PM EST Telemedicine [facility] [address] [place] [address] Radha Dawson, PharmD [address] [place] [address] Type 2 diabetes mellitus with stage 3a [...] is allergic to penicillins. Read/Write: Yes, in [place] Recent Hospitalizations: No Social History as reported [...] and PCV20 Offer next visit Preferred Pharmacy: [facility] - [address] [id number] Assessment/Plan: Type 2 Diabetes Pharmacologic Therapy: Metformin [...] Description 08/23/2024 2:00 PM EDT Medication Management [facility] MED & PEDS [address] [place] [address] Radha Dawson PharmD [address] [place] [address] Scheduled Referrals Name Type Priority Associated Diagnoses Orde r Schedule Referral to Pharmacy CDTM Outpatient Referral Routine Type 2 diabetes mellitus with stage 3a chronic kidney disease, without long-term current use of insulin ([facility]) Ordered: 05/02/2024 documented as of this encounter Visit Diagnoses Diagnosis Type 2 diabetes mellitus with stage 3a chronic kidney disease, without long-term current use of insulin ([facility])- Primary documented in this encounter Care Teams Prints And Drawings Curator Relationship Specialty Start Date End Date Martín Cabrera MD [address] [place] [address] PCP - General Internal Medicine 12/27/12 Radha Dawson PharmD [address] [place] [phone] Pharmacist Internal Medicine 05/24/24 documented as of this encounter
--- OUTSIDE RECORDS SUMMARY | 2024-06-07 19:15 | XMS_ITS | Encounter Summary ---
Author Organization [employer] Address [address] [facility] 7 [place] [address] Care Team Providers Care Garage Mechanic Name Role Phone Martín Cabrera MD Primary Care Provider [phone] Radha Dawson PharmD Unavailable Reason for Visit * Reason Comments Med Refill Encounter Details Date Type Department Care Team ([facility] st Contact Info) Description 04/15/2023 Refill [facility] PEDS [address] [place], [place] [phone] Tucker Rosas MD [address] [place] [address] Type 2 diabetes mellitus with stage 3a chronic kidney disease, without long-term current use of insulin ([facility]) Social History Tobacco Use Types [...] Description 08/23/2024 2:00 PM EDT Medication Management [facility] MED & PEDS [address] [place] [address] Radha Dawson PharmSanta [address] [place] [address] documented as of this encounter Visit Diagnoses Diagnosis Type 2 diabetes mellitus with stage 3a chronic kidney disease, without long-term current use of insulin ([facility]) documented in this encounter Care Teams Garage Mechanic Relationship Specialty Start Date End Date Martín Cabrera MD [address] [place] [address] PCP - General Internal Medicine 12/27/12 Radha Dawson PharmD [address] [place] [address] Pharmacist Internal Medicine 05/24/24 documented as of this encounter
--- OUTSIDE RECORDS SUMMARY | 2024-06-07 19:15 | XMS_ITS | Encounter Summary ---
Author Organization [employer] Address [address] [facility] 7t [place] [address] Care Team Providers Care Manpower Development Specialist Name Role Phone Martín Cabrera MD Primary Care Provider [phone] Radha Dawson PharmD Unavailable [phone] Encounter Details Date Type Department Care Team (Latest Contact Info) Description 06/07/2024 Travel Social History Tobacco Use Types Packs/Day [...] Description 08/23/2024 2:00 PM EDT Medication Management [facility] MED & PEDS [address] [place] [address] Radha Dawson PharmSanta [address] [place] [address] documented as of this encounter Visit Diagnoses Not on filedocumented in this encounter Additional Health Concerns Assessment Noted Time PHQ-9 Depression Total Score: 2 05/29/19 4:27 PM EST documented as of this encounter Care Teams Manpower Development Specialist Relationship Specialty Start Date End Date Martín Cabrera MD [address] [place] [address] PCP - General Internal Medicine 12/27/12 Radha Dawson PharmD [address] [place] [address] Pharmacist Internal Medicine 05/24/24 documented as of this encounter
--- OUTSIDE RECORDS SUMMARY | 2024-06-07 19:15 | XMS_ITS | Encounter Summary ---
Author Organization [employer] Address [address] [place] [address] 7 [place] [address] Care Team Providers Care Rim Fire Priming Tool Setter Name Role Phone Martín Cabrera MD Primary Care Provider [phone] Radha Dawson PharmD Unavailable [phone] Encounter Details Date Type Department Care Team ([facility] st Contact Info) Description 05/31/2024 Telephone [facility]S [address] [place] [address] Martín Cabrera MD [address] [place] [address] Social History Tobacco Use Types Packs/Day Years [...] [facility] P[facility] [address] [place] [address] Radha Dawson, PharmD [address] [place] [address] documented as of this encounter Procedures Procedure Name Priority Date/Time Associated Diagnosis Comments T-SPOT(R).TB Routine 05/31/2024 3:46 PM EST Encounter for screening for respiratory tuberculosis documented in this encounter Results * T-SPOT??.TB (05/31/2024 3:46 PM EST) [facility] T Spot TB Negative Negative [facility] Comment:A negative test resu lt does not exclude the possibilityof exposure to or infection with Mycobacteriumtuberculosis (M. tuberculosis). Patients with recentexposure to TB infected individuals exhibiting anegative T-SPOT.TB result should be considered forretesting within 6 weeks or if other relevant clinicalsymptoms indicate. Results from T-SPOT.TB testing mustbe used in conjunction with each individual'sepidemiological history, current medical status,and results of other diagnostic evaluations.The T-SPOT.TB test is qualitative and results arereported as positive, borderline, or negative, giventhat the test controls perform as expected. In linewith the Centers for Disease Control and Prevention's2010 recommendation to report quantitative measurementsalongside the qualitative result, the laboratoryprovides spot counts for informational purposes only.The T-SPOT.TB test should not be interpreted as aquantitative test. TS PANEL A 0 [facility] TS PANEL B 1 [facility] Negative Control Passed [facility] Positive Control Passed [facility] Comment:For additional infor matsherwin, please refer tohttp://education.[employer]/faq/VIP534(This link is being provided for informational/educational purposes only.)THIS TEST WAS PERFORMED AT:[facility] [id number] [place] [address]ZMPDOJIRAMONA YE MD,PHD 05/31/2024 3:46 PM EST 05/31/2024 6:11 PM EST us Martín Cabrera MD LAB BLOOD ORDERABLES Final Result [facility] [address] [place] [address] [phone] documented in this encounter Visit Diagnoses Diagnosis Encounter for screening for respiratory tuberculosis documented in this encounter Additional Health Concerns Assessment Noted Time PHQ-9 Depression Total Score: 2 05/29/19 25 4:27 PM EST documented as of this encounter Care Teams Rim Fire Priming Tool Setter Relationship Specialty Start Date End Date Martín Cabrera MD [address] [place] [address] PCP - General Internal Medicine 12/27/12 Radha Dawson, PericoD [address] [place] [address] Pharmacist Internal Medicine 05/24/24 documented as of this encounter
--- OUTSIDE RECORDS SUMMARY | 2024-06-07 19:15 | XMS_ITS | Clinical Summary ---
Author Organization [employer] Address [address] [place] [address] 7t [place] [address] Care Team Providers Care Business Intelligence Architect Name Role Phone Martín aCbrera MD Primary Care Provider [phone] Radha Dawson PharmD Unavailable [phone] Allergies Active Allergy Reactions Criticality Noted Date [...] swelling). 30 g 2 12/08/19 23 Active traZODone (Desyrel) 50 MG tabletIndications :Other [...] disease, without long-term current use of insulin ([facility]) Use to test blood sugar 2 times daily 100 each 11/23/19 24 Active Blood Glucose Monitoring Suppl (FreeStyle [place] Lite) w/Device kitIndications:Ty pe 2 diabetes mellitus with stage 3a chronic kidney disease, without long-term current use of insulin ([facility]) Use to test blood sugar 2 times daily 1 kit 11/23/19 24 Active amLODIPine (Norvasc) 10 MG tabletIndications :Essential hypertension TAKE ONE TABLET EVERY MORNING 90 tablet 03/16/20 24 Active simvastatin (Zocor) 40 MG tabletIndications :Mixed hyperlipidemia Take 1 tablet (40 mg) by mouth Once per day. 30 tablet 5 04/21/19 25 Active metoprolol succinate XL (Toprol-XL) 100 MG 24 hr tabletIndications :Primary hypertension Take 1 tablet (100 mg) by mouth Once per day. Do not crush or chew. 30 tablet 05/15/19 25 2025 Active valsartan-hydroCH LOROthiazide (Diovan HCT) 320-12.5 MG tabletIndications :Primary hypertension Take 1 tablet by mouth Once per day. 30 tablet 05/29/19 25 2025 Active metFORMIN (Glucophage) 1000 MG tablet Take 1 tablet (1,000 mg) by mouth with breakfast and with evening meal. 60 tablet 06/08/19 25 2025 Active aspirin 81 MG chewable tablet Chew 1 tablet 1 (one) time each day. 05/01/192024 Discontinued(M ed list cleanup (will not trigger [...] cleanup (will not trigger notification to Pharmacy)) valsartan-hydroCH LOROthiazide (Diovan HCT) 160-12.5 MG tabletIndications :Primary hypertension Take 1 tablet by mouth Once per day. 30 tablet 11 11/23/19 24 2024 Discontinued(D ose adjustment) zolpidem (Ambien) 10 MG tabletIndications :Other insomnia Take 1 tablet (10 mg) by mouth if needed at bedtime for sleep for up to 2 days. 1 tab one hour prior to the sleep study. 2 tablet 11/23/19 24 2024 Discontinued(M ed list cleanup (will not trigger notification to Pharmacy)) metFORMIN (Glucophage) 500 MG tabletIndications :Type 2 diabetes mellitus with stage 3a chronic kidney disease, without long-term current use of insulin ([facility]) Take 1 tablet (500 mg) by mouth with breakfast and with evening meal. 60 tablet 04/21/19 25 2024 Discontinued(D ose adjustment) Active Problems Problem Noted Date Diagnosed Date [...] Encounters Date Type Department Care Team Description 06/07/2024 Orders Only [facility] [address] [place] [address] Martín Cabrera MD 06/07/2024 Travel 06/04/[address] [address] Catarina Mcgregor RN 05/31/2024 Telephone [facility] [address] [place] [address] Martín Cabrera MD 05/31/[address] [address] Martín Cabrera MD 05/30/2024 Orders Only [address] [address] Martín Cabrera MD Microcytic anemia (Primary Dx); Normocytic anemia 05/29/2024 3:30 PM EST Office Visit [facility] [address] [place] [address] Martín Cabrera MD Type 2 diabetes mellitus with stage 3a chronic kidney disease, without long-term current use of insulin (CMS/HCC) (Primary Dx); Mixed hyperlipidemia; Primary hypertension; Screening for colon cancer; Encounter for immunization 05/29/2024 Travel 05/25/2024 Telephone [facility] [address] [place] [address] Martín Cabrera MD CHART PREP 05/24/2024 2:30 PM EST Telemedicine [facility] [address] [place] [address] Radha Dawson, Yen Type 2 diabetes mellitus with stage 3a chronic kidney disease, without long-term current use of insulin (CMS/HCC) (Primary Dx) 05/15/2024 Patient Outreach [address] [place] [address] Martín Cabrera MD Pre-visit Planning (SDOH screening negative and Tobacco screening negative) 05/07/2024 Refill [facility] [address] [place] [address] Martín Cabrera MD Primary hypertension 05/02/2024 Orders Only [facility] [address] [place] [address] Martín Cabrera MD Type 2 diabetes mellitus with stage 3a chronic kidney disease, without long-term current use of insulin (CMS/HCC) (Primary Dx) 05/02/2024 Telephone [facility] [address] [place] [address] Radha Dawson, PharmSanta 04/20/2024 Refill [facility] [address] [place] [address] Martín Cabrera MD Type 2 diabetes mellitus with stage 3a chronic kidney disease, without long-term current use of insulin (CMS/HCC); Mixed hyperlipidemia; Primary hypertension; Essential hypertension 04/19/2024 Travel 04/17/2024 Telephone [facility] [address] [place] [address] Martín Cabrera MD Chart Prep 04/17/2024 Telephone [facility] [address] [place] [address] Martín Cabrera MD Appointment Request 03/16/2024 Refill [facility] [address] [place] [address] Martín Cabrera MD Essential hypertension from Last [...] Sign Reading Time Taken Comments Blood Pressure 164/86 06/07/2024 3:30 PM EST Pulse 63 06/07/2024 3:30 PM EST Temperature 36.7 ??C (98 ??F) [...] Description 08/23/2024 2:00 PM EDT Medication Management [facility] [address] [place] [address] Radha Dawson, PharmD [address] [place] [address] Health Maintenance Due Date Last Done Comments [...] 05/29/2025 05/29/2024 Depression Screening 05/29/2025 05/29/2024, 05/29/19 SDOH Screening 05/29/2025 05/29/2024 Tobacco Screening 05/29/2025 [...] Procedure Name Priority Date/Time Associated Diagnosis Comments POCT GLUCOSE Routine 06/07/2024 4:04 PM EST Type 2 diabetes mellitus with stage 3a chronic kidney disease, without long-term current use of insulin ([facility]) ALBUMIN, RANDOM URINE W/CREATININE Routine 06/07/2024 3:57 PM EST T-SPOT(R).TB Routine 05/31/2024 3:46 PM EST Encounter for screening for respiratory tuberculosis RETICULOCYTE COUNT Routine 05/31/2024 3: 46 PM [...] Recently Relevant to Health Maintenance Results * POCT glucose manually resulted (06/07/2024 4:04 PM EST) Only the most recent of2 resultswithin the time period is included. Pathologist [facility] Glucose Blood, POC 73 60 - 200 mg/dL QC Media Lot # [id number] Lot# Expiration Date Blood Capillary blood specimen / Unknown 06/07/2024 4:04 PM EST Martín Cabrera MD POINT OF CARE TEST ENTER/ED IT ORDERABLES Final Result * (ABNORMAL) Albumin, Random Urine W/Creatinine (06/07/2024 3:57 PM EST) [facility] Creatinine, Urine 13.37 mg/dL [facility] Microalbumin Urine 39.0 mg/L [facility] Microalbum Creatinine Ratio Ur 291.6(H) <30 ug/mg cr [facility] Comment:Albumin/Creatinine R atio Reference Ranges: Normal: < 30 ug/mg creatinine Microalbuminuria: 30 - 300 ug/mg creatinineClinical Albuminuria: > 300 ug/mg creatinine 06/07/2024 3:57 PM EST 06/07/2024 5:56 PM EST Martín Cabrera MD LAB URINE ORDERABLES Final Result Performing Organization Address City/State/[facility] Co de Phone Number [facility] [address] [place] [phone] * T-SPOT??.TB (05/31/2024 3:46 PM EST) [facility] T Spot TB Negative Negative [facility] Comment:A negative test resu lt does [...] as aquantitative test. TS PANEL A 0 [facility] TS PANEL B 1 [facility] Negative Control Passed [facility] Positive Control Passed [facility] Comment:For additional infor matsherwin, please refer tohttp://education.[employer]/faq/JQZ675(This link is being provided for informational/educational purposes only.)THIS TEST WAS PERFORMED AT:[employer] [id number] [place] [address]APDDJWE W. MASON,MD,PHD 05/31/2024 3:46 PM EST 05/31/2024 6:11 PM EST Martín Cabrera MD LAB BLOOD ORDERABLES Final Result Performing Organization Address [facility] Co de Phone Number [facility] [address] [place] [phone] * Iron And Total Iron Binding Capacity (05/31/2024 3:46 PM EST) Iron 101 45 - 160 mcg/dL [facility] Total Iron Binding Capacity 269 228 - 428 mcg/dL [facility] Percent Iron Saturation 38 15 - 50 % [facility] Unsaturated Iron Binding 168 ug/dL [facility] Blood Venous blood specimen / Unknown 05/31/2024 3:46 PM EST 05/31/2024 6:11 PM EST Martín Cabrera MD LAB BLOOD ORDERABLES Final Result Performing Organization Address [facility] Co de Phone Number [facility] [address] [place] [phone] * (ABNORMAL) Reticulocyte Count (05/31/2024 3:46 PM EST) Reticulocytes Absolute 0.072 0.026 - 0.095 X10*6/uL [facility] Immature Retic Fraction 11.8 2.3 - 13.4 % [facility] Retic HGB Equivalent 28.2(L) 30.0 - 35.0 pg [facility] Reticulocyte Percent 1.4 0.5 - 1.8 % [facility] Blood Venous blood specimen / Unknown 05/31/2024 3:46 PM EST 05/31/2024 6:11 PM EST us Martín Cabrera MD LAB BLOOD ORDERABLES Final Result Performing Organization Address [facility]/ZIP Co de Phone Number [facility] [address] [place] [phone] * Ferritin (05/31/2024 3:46 PM EST) Pathologist [facility] Ferritin 175 20 - 250 ng/mL [facility] Blood Venous blood specimen / Unknown 05/31/2024 3:46 PM EST 05/31/2024 6:11 PM EST us Martín Cabrera MD LAB BLOOD ORDERABLES Final Result Performing Organization Address [facility]/ZIP Co de Phone Number [facility] [address] [place] [phone] * TSH W/Reflex to FT4 (05/29/2024 4:08 PM EST) TSH reflex Free T4 2.06 0.32 - 4.0 uIU/mL [facility] Blood Venous blood specimen / Unknown 05/29/2024 4:08 PM EST 05/29/2024 6:02 PM EST us Martín Cabrera MD LAB BLOOD ORDERABLES Final Result [facility] [address] [place] [address] [phone] * (ABNORMAL) CBC auto differential (05/29/2024 4:08 PM EST) White Blood Count 7.6 4.8 - 10.8 X10*3/uL [facility] Red Blood Count 5.43 4.60 - 5.80 X10*6/uL [facility] Hemoglobin 13.0(L) 14.0 - 18.0 g/dl [facility] Hematocrit 42.3 42.0 - 52.0 % [facility] Mean Corpuscular Volume 77.9(L) 80.0 - 98.0 fL [facility] Mean Corpuscular Hemoglobin 23.9(L) 27.0 - 33.0 pg [facility] Mean Corpuscular HGB Conc 30.7(L) 31.0 - 36.0 g/dl [facility] Red Cell Distribution Width 13.2 11.0 - 16.0 % [facility] Platelet Count 179 160 - 400 X10*3/uL [facility] Mean Platelet Volume 11.7 9.4 - 12.4 fL [facility] Neutrophils Percent Auto 59.7 45 - 73 % [facility] Imm Gran Pct Auto 0.1 0.0 - 0.4 % [facility] Lymphocytes Percent Auto 30.1 20 - 40 % [facility] Monocytes Percent Auto 8.9 2 - 11 % [facility] Eosinophils Percent Auto 0.8 0 - 4 % [facility] Basophils Percent Auto 0.4 0 - 2 % [facility] NRBC Pct Auto 0.0 0.0 - 0.2 /100WBC [facility] Neutrophils Absolute Auto 4.5 2.0 - 8.3 x10*3/uL [facility] Imm Gran Abs Auto 0.01 0.00 - 0.03 X10*3/uL [facility] Lymphocytes Absolute Auto 2.3 1.2 - 4.9 X10*3/uL [facility] Monocytes Absolute Auto 0.7 0.1 - 1.2 X10*3/uL [facility] Eosinophils Absolute Auto 0.1 0.0 - 0.4 X10*3/uL [facility] Basophils Absolute Auto 0.0 0.0 - 0.2 X10*3/uL [facility] NRBC Abs Auto 0.000 0.0 - 0.012 X10*3/uL [facility] Blood Venous blood specimen / Unknown 05/29/2024 4:08 PM EST 05/29/2024 6:02 PM EST us Martín Cabrera MD LAB BLOOD ORDERABLES Final Result [facility] [address] [place] [phone] [phone] * (ABNORMAL) Comprehensive Metabolic Panel (05/29/2024 4:08 PM EST) Sodium 139 135 - 145 mmol/L [facility] Potassium 3.8 3.3 - 5.1 mmol/L [facility] Chloride 101 96 - 108 mmol/L [facility] Carbon Dioxide 27 22 - 29 mmol/L [facility] Anion Gap 15 12 - 20 [facility] Urea Nitrogen (BUN) 19(H) 9 - 16 mg/dL [facility] Creatinine, Serum 1.04 0.5 - 1.4 mg/dL [facility] Estimated Glomerular Filt Rate >60 [facility] Comment:Chronic Kidney Disea se: Estimated GFR < 60 mL/min/1.42p9Suotrn Kidney Disease: Estimated GFR < 15 mL/min/1.73m2 Glucose 132(H) 60 - 115 mg/dL [facility] Calcium 9.6 8.4 - 10.2 mg/dL [facility] Bilirubin, Total 0.8 0.0 - 1.0 mg/dL [facility] Aspartate Amino Transferase 27 5 - 37 U/L [facility] Alanine Aminotransferase 23 0 - 40 U/L [facility] Total Protein 8.7(H) 6.5 - 8.0 g/dL [facility] Albumin Level 4.7 3.5 - 5.0 g/dL [facility] Alkaline Phosphatase 60 39 - 117 U/L [facility] Blood Venous blood specimen / Unknown 05/29/2024 4:08 PM EST 05/29/2024 6:02 PM EST us Martín Cabrera MD LAB BLOOD ORDERABLES Final Result Performing Organization Address [facility] Co de Phone Number [facility] [address] [place] [phone] * (ABNORMAL) POCT HGB A1C (05/29/2024 3:55 PM EST) [facility] Hemoglobin A1C 9.2(A) 4.0 - 6.0 % QC Media Lot # [id number] Lot# Expiration Date Blood 05/29/2024 3:55 PM EST us Martín Cabrera MD POINT OF CARE TEST ENTER/ED IT ORDERABLES Final Result * Hepatitis C Antibody with Reflex to HCV, RNA, Quantitative, Real-Time PCR (11/23/2023 3:48 PM EDT) [facility] Hepatitis C Antibody Nonreactive Nonreactive [facility] Comment:Antibodies to HCV no t detected; does not exclude early acuteHCV infection. Blood Venous blood specimen / Unknown 11/23/2023 3:48 PM EDT 11/23/2023 5:57 PM EDT Martín Cabrera MD LAB BLOOD ORDERABLES Final Result Performing Organization Address [facility] Co de Phone Number [facility] [address] [place] [phone] * (ABNORMAL) Lipid Panel, Standard (11/23/2023 3:48 PM EDT) [facility] Triglycerides 129 <150 mg/dL [facility] Comment:Desirable Triglyceri de: less than 150 mg/dLBorderline High Triglyceride 150-199 mg/dLHigh Triglyceride: 200-499 mg/dLVery High Triglyceride: greater than or equal to 5OO mg/dL Cholesterol 140 <200 mg/dL [facility] Comment:Desirable Cholestero l: less than 200 mg/dLBorderline High Cholesterol: 200-239 mg/dLHigh Cholesterol: greater than 239 mg/dL LDL Cholesterol Calculated 76 <100 mg/dL [facility] Comment:Desirable LDL: less than 100 mg/dLNear Optimal/Above Optimal LDL: 110- 129 mg/dLBorderline High LDL: 130-159 mg/dLHigh LDL: 160-189 mg/dLVery High LDL: greater than or equal to 190 mg/dL HDL Cholesterol 39(L) >40 mg/dL [facility] Comment:Desirable HDL: great er than 40 mg/dL Note: This HDL assay may give artificially low results in patients with liver disease. Blood Venous blood specimen / Unknown 11/23/2023 3:48 PM EDT 11/23/2023 5:57 PM EDT Martín Cabrera MD LAB BLOOD ORDERABLES Final Result [facility] [address] [place] [address] [phone] from Last 3 Months or Most Recently Relevant to Health Maintenance Insurance [facility] MEDICARE ADVANTAGE HMO Care Teams Business Intelligence Architect Relationship Specialty Start Date End Date Martín Cabrera MD [address] [place] [phone] PCP - General Internal Medicine 12/27/12 Radha Dawson PharmD [address] [place] [phone] Pharmacist Internal Medicine 05/24/24
--- OUTSIDE RECORDS SUMMARY | 2024-06-07 19:15 | XMS_ITS | Encounter Summary ---
Author Organization [employer] Address [address]t [place] [address] Care Team Providers Care Section Cutter Name Role Phone Martín Cabrera MD Primary Care Provider [phone] Radha Dawson PharmD Unavailable [phone] Encounter Details Date Type Department Care Team ([facility] st Contact Info) Description 06/04/2024 Telephone [facility] [address] [place] [address] Catarina Mcgregor RN Social History Tobacco Use Types Packs/Day Years [...] encounter Miscellaneous Notes * Telephone Encounter - Catarina Mcgregor RN - 06/04/2024 10:31 AM EST Tc to pt via s id: [phone] [id number] to let them know per PCP Please call. Patient has a normocytic anemia. Referred to consider colonoscopy Pt expressed understanding and denies any further questions or concerns at this time. * Telephone Encounter - Catarnia Mcgregor RN - 06/04/2024 10:31 AM EST ----- Message from Martín Cabrera MD sent at 06/01/2024 8:40 AM EST ----- Please call. Patient has a normocytic anemia. Referred to consider colonoscopy ----- Message ----- From: Interface, Lab Results In Sent: 05/31/2024 6:28 PM EST To: Martín Cabrera MD documented in this encounter Plan of Treatment Upcoming Encounters Date Type Department Care Team (Late st Contact Info) Description 08/23/2024 2:00 PM EDT Medication Management [facility] [address] [place] [address] Radha Dawson, PharmD [address] [place], [place] [phone] documented as of this encounter Visit Diagnoses Not on filedocumented in this encounter Additional Health Concerns Assessment Noted Time PHQ-9 Depression Total Score: 2 05/29/19 25 4:27 PM EST documented as of this encounter Care Teams Section Cutter Relationship Specialty Start Date End Date Martín Cabrera MD [address] [place] [address] PCP - General Internal Medicine 12/27/12 Radha Dawson PharmD [address] [place] [address] Pharmacist Internal Medicine 05/24/24 documented as of this encounter
--- OUTSIDE RECORDS SUMMARY | 2024-06-07 19:15 | XMS_ITS | Encounter Summary ---
Author Organization [employer] Address [address] [facility] 7 [place] [address] Care Team Providers Care Furniture Reproducer Name Role Phone Martín Cabrera MD Primary Care Provider [phone] Radha Dawson PharmD Unavailable [phone] Encounter Details Date Type Department Care Team ([facility] st Contact Info) Description 01/02/2024 Orders Only [facility] [address] [place], [place] [phone] Martín Cabrera MD [address] [place] [address] Primary hypertension (Primary Dx) Social History Tobacco [...] PM EDT Medication Management [facility] [address] [place] [address] Radha Dawson PharmD [address] [place] [address] documented as of this encounter Visit Diagnoses Diagnosis Primary hypertension- Primary Unspecified essential hypertension documented in this encounter Care Teams Furniture Reproducer Relationship Specialty Start Date End Date Martín Cabrera MD [address] [place] [address] PCP - General Internal Medicine 12/27/12 Radha Dawson PharmD [address] [place] [address] Pharmacist Internal Medicine 05/24/24 documented as of this encounter
--- OUTSIDE RECORDS SUMMARY | 2024-06-07 19:15 | XMS_ITS | Data Portability ---
Author Organization [employer] [facility], [address] Address [address] [place] [address] Assessment No assessment recorded. Plan of Treatment Reminders Order Date Submit Date Provider Last Modified By Organization Details Last Modified Time Details Appointments None recorded. Lab None recorded. Referral None recorded. Procedures None recorded. Surgeries None recorded. Imaging XR, cervical spine, 2 or 3 view 2022 023 [facility], [address] [place] [address], [address], 3 16:53:35 Medication Orders cyclobenzap rine 10 mg tablet 2022 023 [facility] [address] [place] [address], [address], 3 16:38:01 naproxen 500 mg tablet 2022 023 [facility] [address] [place] [address], [address], 3 16:38:00 Patient TargetsNo targets recorded. Patient Instructions Encounter Date Encounter Id Patient Instructions Last Modified By Organization Details Last Modified Time 10/29/2022 [id number] This patient presents sub-acutely after a motor [...] for pain. Not available 10/29/2022 16:14:15 11/06/2022 [id number] - Good neck mechanics, posture, modalities reviewed [...] ed. [email or web address] [address] [place], [address], 10/29/2022 17:02:29 Result Notes None recorded. Problems Name Problem SNOMED Code Status Onset Date Resolution Date Notes Provider Name and Address Organization Details Recorded Time Hypertensive disorder 15202398 Active 2022 XIOMY mena, [place] - [facility] 3 15:56:04 Hyperlipidemia 46466727 Active 2022 XIOMY mena, [place] - [facility] 3 15:56:09 Diabetes mellitus 67158105 Active 2022 XIOMY mena, [place] - [facility] 3 15:56:14 Problem Notes None recorded. Procedures Surgical History None recorded. Imaging Results Imaging Date Name Status LastModified by Organiz ation Details LastModified Time 10/29/2022 XR, cervical spine, 2 or 3 view completed [email or web address] [address] [place], [address], 10/29/2022 17:02:29 Procedure Notes None recorded. Medical Equipment None Reported. Allergies Allergen ID Allergen Name Allergen Category Reaction Reaction Severity Criticality Documentation Date Start Date Code Code System Note Provider Name and Address Organization Details Recorded Time 490564 Product containin g penicilli n (product) medicatio n Not available Not available Not available 10/29/2022 45572 8001 SNOMED [facility], [facility] - [facility] [...] Not Available Not Available Not Available FreeStyle [place] Lite kit USE TWICE DAILY active Not [...] Updated DateTime 3 167.64 cm 29.1 kg/m2 38892.6 3 g 97.5 [degF] 18 /min 98 [...] Updated DateTime 3 167.64 cm 29.1 kg/m2 05001.6 3 g 9 97.7 [degF] 18 /min [...] SNOMED-CT Code Diagnosis ICD10 Code Diagnosis Note [id number] [address] [facility] [address] [place] [address] 10/29/2020 12:05:38 10/29/2020 14:01:33 [id number] David Pappas NP [address] [facility] [place] [phone] 10/29/2022 15:34:08 10/29/2022 16:42:08 Neck pain 26797767 M54.2 Accident w letitia engaged in work-related activity 71087203 X58.XXXA [id number] David Pappas NP [address] [place] [address] 11/06/2022 11:47:57 11/06/2022 12:39:57 Strain of neck muscle 386240971 S16.1XXD Continue medication as prescribed . Accident w letitia engaged in work-related activity 88284680 X58.XXXA Health Concerns Section Related Observation LastModified by Organization Detai ls LastModified Time None Recorded Concern Status LastModified by Organization Details LastModified Time None Recorded Advance Directives Directive None Recorded Payers Encounter Date Sequence Insurance Name Policy Number Policy Carreon Covered Member ID Carreon Member ID Guarantor Name 10/29/2022 [employer] [facility] [employer] Akil Wilkins 11/06/2022 [employer] [facility] [employer] Akil Wilkins Notes Date Note Type Note [...] David Pappas NP [address] [place], [address], [employer] [facility] 10/29/2022 16:38:19 3 text/html Neck UCReported [...] David Pappas NP [address] [place], [address], [employer] [facility] 11/06/2022 12:37:19
--- OUTSIDE RECORDS SUMMARY | 2024-06-07 19:15 | XMS_ITS | Encounter Summary ---
Author Organization [employer] Address [address] [place] [address] 7 [place] [address] Care Team Providers Care Junior Linux Systems Administrator Name Role Phone Martín Cabrera MD Primary Care Provider [phone] Reason for Visit * Reason Onset Date Comments Med Refill 05/07/2024 Encounter Details Date Type Department Care Team ([facility] st Contact Info) Description 05/07/2024 Refill [facility] CHC MED & PEDS [address] [place] [address] Martín Cabrera MD [address] [place] [address] Primary hypertension Social History Tobacco Use Types [...] Description 08/23/2024 2:00 PM EDT Medication Management [facility] MED & PEDS [address] [place], [place] [phone] Radha Dawson, PharmD [address] [place] [address] documented as of this encounter Visit Diagnoses Diagnosis Primary hypertension Unspecified essential hypertension documented in this encounter Care Teams Junior Linux Systems Administrator Relationship Specialty Start Date End Date Martín Cabrera MD [address] [place] [address] PCP - General Internal Medicine 12/27/12 documented as of this encounter
--- OUTSIDE RECORDS SUMMARY | 2024-06-07 19:15 | XMS_ITS | Encounter Summary ---
Author Organization [employer] Address [address] [facility] 7t [place] [address] Care Team Providers Care Night Clerk Name Role Phone Martín Cabrera MD Primary Care Provider [phone] Radha Dawson PharmD Unavailable [phone] Encounter Details Date Type Department Care Team (Late st Contact Info) Description 05/31/2024 Telephone [facility] MEDICINE [address] [place] [address] Martín Cabrera MD 505 [place] [address] Social History Tobacco Use Types Packs/Day Years [...] TC x 2 placed to pt via [employer] language interpreter (Lanie ID#[id number]) to inform and advise of below PCP [...] 2:00 PM EDT Medication Management [facility] MED & PEDS [address] [place] [address] Radha Dawson, PharmD [address] [place], [place] [phone] documented as of this encounter Visit Diagnoses Not on filedocumented in this encounter Additional Health Concerns Assessment Noted Time PHQ-9 Depression Total Score: 2 05/29/19 4:27 PM EST documented as of this encounter Care Teams Night Clerk Relationship Specialty Start Date End Date Martín Cabrera MD [address] [place] [address] PCP - General Internal Medicine 12/27/12 Radha Dawson PharmD [address] [place] [address] Pharmacist Internal Medicine 05/24/24 documented as of this encounter
--- OUTSIDE RECORDS SUMMARY | 2024-06-07 19:15 | XMS_ITS | Encounter Summary ---
Author Organization [email or web address] Address [address] [place] [address] 7 [place] [address] Care Team Providers Care Casual Shoe Inspector Name Role Phone Martín Cabrera MD Primary Care Provider [phone] Radha Dawson PharmD Unavailable [phone] Reason for Visit * Reason Comments Med Refill Encounter Details Date Type Department Care Team ([facility] st Contact Info) Description 12/27/2023 Refill [facility] CHC MED & PEDS [address] [place], [place] [phone] Martín Cabrera MD [address] [place] [address] Essential hypertension Social History Tobacco Use Types [...] [facility] MED & PEDS [address] [place] [address] Radha Dawson PharmD [address] [place] [address] documented as of this encounter Visit Diagnoses Diagnosis Essential hypertension Unspecified essential hypertension documented in this encounter Care Teams Casual Shoe Inspector Relationship Specialty Start Date End Date Martín Cabrera MD 505 [place] [address] PCP - General Internal Medicine 12/27/12 Radha Dawson PharmD [address] [place] [address] Pharmacist Internal Medicine 05/24/24 documented as of this encounter
--- OUTSIDE RECORDS SUMMARY | 2024-06-07 19:15 | XMS_ITS | Encounter Summary ---
Author Organization [employer] Address [address] [facility] 7t [place] [address] Care Team Providers Care Operations Representative Name Role Phone Martín Cabrera MD Primary Care Provider [phone] Radha Dawson PharmD Unavailable [phone] Encounter Details Date Type Department Care Team [...] Description 08/23/2024 2:00 PM EDT Medication Management [facility] MED & PEDS [address] [place] [address] Radha Dawson PharmSanta 230 [place] [address] documented as of this encounter Visit Diagnoses Not on filedocumented in this encounter Additional Health Concerns Assessment Noted Time PHQ-9 Depression Total Score: 2 05/29/19 4:27 PM EST documented as of this encounter Care Teams Operations Representative Relationship Specialty Start Date End Date Martín Cabrera MD 505 [place] [address] PCP - General Internal Medicine 12/27/12 Radha Dawson PharmD [address] [place] [address] Pharmacist Internal Medicine 05/24/24 documented as of this encounter
== END 2024-06-07 15:58 | disposition home or self-care (01) ==
LOC: HO.CHCLDS 15:57
PROVIDERS: Visit Provider Internal Medicine
DX: E11.22 Type 2 diabetes mellitus with diabetic chronic kidney disease (principal); N18.31 Chronic kidney disease, stage 3a
CPT/HCPCS: 82043; 82570

== ENCOUNTER 2024-06-30 11:12 | Outpatient (AMB) | payer MEDICARE, SELFPAY ==
--- NOTE | 2024-06-30 11:30 | AM.OFFWIN_ITS ---
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 Intake Note: Pt is here today c/o bilateral eye irritation and itchyness x1week Patient Tobacco Use Status: Never used Tobacco Allergies penicillin G [Penicillin G] Allergy (Mild, Verified 06/30/24 11:47) SYNCOPE Medication List - Last Reconciled 06/30/24 by Devi Wharton, [employer]- amlodipine 10 mg PO DAILY ascorbate calcium (vitamin C) 500 mg PO DAILY cholecalciferol (vitamin D3) 25 mcg PO DAILY cinnamon bark (Cinnamon) 500 mg PO DAILY garlic 200 mg PO DAILY metoprolol succinate ER 100 mg PO DAILY multivitamin 1 tab PO DAILY polymyxin B sulf-trimethoprim 10,000 unit- 1 mg/mL 1 drp ophthalmic (eye) QID 5 days simvastatin 40 mg PO BEDTIME valsartan-hydrochlorothiazide 80-12.5 mg 1 tab PO DAILY vitamin A 10,000 units PO DAILY HPI HPI Comments History of Present Illness Details History - The patient is a 68-year-old male pres enting with bilateral eye irritation and itchiness beginning approximately one week ago. - Initial symptoms were unilateral befor e involving both eyes, characterized by redness and thin discharge, particularly in the evening. + mucous d/c worse in the evening and upon waking - Denied associated symptoms include fev er, headache, sneezing, itchy nose, or throat. - The patient reported no ocular pain at present and confirmed normal vision. - No similar symptoms reported among [facility] contacts. - Additionally, the patient anticipates an eye examination scheduled for next September. Physical Exam General: Awake, alert. No apparent distress Eyes: Sclera clear, conjunctiva injection bilaterally, mucoid d/c bilat worse on the R, no photophobia, PERRLA, EOMI, Vision WNL No temporal tenderness Discussion Notes During the visit, I discussed with the patient that the likely diagnosis for his symptoms is bilateral conjunctivitis. I explained the use of prescribed ophthalmic drops to apply one drop in each eye four times daily over a five-day period. I highlighted the importance of hygiene, specifically washing bed linens after the initial day of treatment to prevent bacterial persistence. The patient was advised to monitor symptoms closely, returning if they worsen or fail to improve. Assessment and Plan 1. Bilateral Conjunctivitis: The medical evaluation indicates bilateral conjunctivitis, likely of bacterial origin due to symptoms of redness and thin discharge. Prescribed treatment involves ophthalmic drops administered to both eyes four times daily for five days. The patient was informed about washing bedding after one day of treatment to reduce bacterial exposure. The prescription was adjusted given the patient's penicillin allergy, and directed to a specific pharmacy. Follow-up is advised should symptoms worsen or remain unchanged. Patient Instructions - Use the prescribed eye drops: one drop in each eye, four times a day, for five days. - Wash pillowcases and bed sheets after the first day of treatment. - Monitor symptoms; report back if irrit ation worsens or persists. - Be aware of your penicillin allergy an d ensure no medication contains penicillin. - Follow pharmacy instructions for medic ation pick-up. Consent Patient was informed and verbally consented to the use of an ambient scribe for clinic note documentation during this visit. [facility] Medical History HTN (hypertension) Obstructive sleep apnea Family History Father HTN (hypertension) Mother No problems noted. Social History Household Members: Spouse Housing: House Do you presently have visiting nurse or other home services: No Patient Tobacco Use Status: Never used Tobacco service: No Current occupational status: employed Physical Exam Vital Signs: Last Vital Signs Temp 97.7 F 06/30/24 11:31 Pulse 77 06/30/24 11:31 Resp 16 06/30/24 11:31 BP 132/70 06/30/24 11:31 Pulse Ox 97 06/30/24 11:31 Oxygen Delivery Method Room Air 06/30/24 11:31 Assessment & Plan Assessment & Plan (1) Conjunctivitis: Code(s): H10.9 - Unspecified conjunctivitis Qualifiers: Conjunctivitis type: acute Laterality: bilateral Acute conjunctivitis type: bacterial Qualified Code(s): H10.33 - Unspecified acute conjunctivitis, bilateral Plan . Medications: New polymyxin B sulf-trimethoprim 10,000 unit- 1 mg/mL APPLY TO BOTH EYES while awake; do not exceed 6 doses in 24 hours 1 drp ophthalmic (eye) QID 5 days 10 mL 0RF Patient Instructions: Put cold or warm wet cloths on your eye a few times a day if the eye hurts. Do not wear contact lenses or eye makeup until the pink eye is gone. Throw away any eye makeup you were using when you got pink eye. Clean your contacts and storage case. Wash bed linen after 24 hours of antibiotic eye drop use. Do not share eye drops. Use a clean towel to wash your face each day until symptoms are gone. This will help prevent recurrence. What is pink eye? Roca eye is a term people use to describe an infection or irritation of the eye. The medical term for pink eye is conjunctivitis. If you have pink eye, your eye (or eyes) might: ?Turn pink or red ?Weep or ooze a gooey liquid ?Become itchy or burn ?Get stuck shut, especially when you first wake up Roca eye can be caused by an infection, allergies, or an unknown irritation. Can you catch pink eye from someone else? Yes. When pink eye is caused by an infection, it can spread easily. Usually, people catch it from touching something that has been in contact with an infected person's eye. It can also be spread when an infected person touches someone else, and then that person touches their eye. If someone you know has pink eye, avoid touching their pillowcases, towels, or other personal items. When should I see a doctor or nurse? See your doctor or nurse if your eye hurts, or if you still have trouble seeing clearly after blinking. If you do not have these problems, but think you might have pink eye, your doctor or nurse might be able to give you advice over the phone. Can pink eye be treated? Most cases of pink eye go away on their own without treatment. But some types of pink eye can be treated. When pink eye is caused by infection, it is usually caused by a virus, so antibiotics will not help. Still, pink eye caused by a virus can last several days. ?Roca eye caused by an infection with bacteria can be treated with antibiotic eye drops, gel, or ointment. ?Roca eye caused by other problems can be treated with eye drops normally used to treat allergies. These drops will not cure the pink eye, but they can help with itchiness and irritation. When using eye drops for infection, do not touch your healthy eye after touching your infected eye. Also, do not touch the bottle or dropper directly onto 1 eye and then use it in the other. These things can cause the infection to spread from 1 eye to the other. If your eyelids feel swollen, it might also help to hold a cool wet cloth on the area. What if I wear contact lenses? If you wear contact lenses and you have symptoms of pink eye, it is really important to have a doctor look at your eyes. In people who wear contacts, the symptoms of pink eye can be caused by corneal abrasion. Corneal abrasion is a scratch on the eye and can be a serious problem. During treatment for eye infections, you might need to stop wearing your cont acts for a short time. If your contacts are disposable, throw them away and use new ones. If your contacts are not disposable, you need to carefully clean them. You should also throw away your contact lens case and get a new one. When can I go back to work or school? If you have pink eye caused by an infection, remember that it can spread very easily. The best way to avoid spreading it is to stay away from other people until you no longer have symptoms. If this is not possible, wash your hands often (figure 1). It's also important to avoid touching your eyes and sharing items that could spread the infection. Schools and day cares usually have rules about when a child with pink eye can return. If a child has a bacterial infection, they will probably need to stay home until they have gotten antibiotic eye drops or ointment for 24 hours. Can pink eye be prevented? To keep from getting or spreading pink eye caused by an infection: ?Wash your hands often with soap and water. ?Try not to touch your eyes. ?Avoid sharing towels, bedding, or other personal items with a person who has pink eye. If your pink eye is caused by allergies, it might help to stay inside with the windows shut as much as possible during peak allergy seasons. What problems should I watch for? Call your doctor or nurse if: ?You have trouble seeing clearly after blinking. ?Your eye is still red or has drainage after 3 days. ?You have eye pain that is getting worse. Coding Level of Care Code Est Pt Level 3 (52107) Diagnoses Acute bacterial conjunctivitis of both eyes H10.33 Conjunctivitis type: acute Laterality: bilateral Acute conjunctivitis type: bacterial
[2024-06-30 11:31] VITALS: BP 132/70; PULSE 77; RESP 16; TEMP 36.5; O2SAT 97
== END 2024-06-30 12:07 | disposition home or self-care (01) ==
LOC: HO.HMCWIC 11:12
PROVIDERS: PCP Internal Medicine; Visit Provider Nurse Practitioner Family
DX: H10.33 Unspecified acute conjunctivitis, bilateral (principal)

== ENCOUNTER → 2024-06-30 11:12 | Outpatient (BNVA) | payer MEDICARE, SELFPAY | PROVIDERS: PCP Internal Medicine; Visit Provider Nurse Practitioner Family | DX: H10.33 Unspecified acute conjunctivitis, bilateral (principal) | CPT/HCPCS: 99212 ==

== ENCOUNTER 2024-10-02 08:11 | Outpatient (REF) | payer MEDICARE, SELFPAY ==
[2024-10-02 10:16] LABS: Cholesterol 119 mg/dL (<200); HDL Cholesterol 34 mg/dL (>40); Iron 88 mcg/dL (45-160); Percent Iron Saturation 35 % (15-50); Total Iron Binding Capacity 253 mcg/dL (228-428); Triglycerides 163 mg/dL (<150); Unsaturated Iron Binding 165 ug/dL
[2024-10-02 10:34] LABS: Ferritin 166 ng/mL (20-250)
[2024-10-02 10:50] LABS: Folate 7.8 ng/mL (> or = 4.0); Vitamin B12 1721 pg/mL (200-900)
[2024-10-08 01:19] LABS: Vitamin D 25-OH, D2 <4 ng/mL; Vitamin D 25-OH, D3 30 ng/mL; Vitamin D 25-OH, Total 30 ng/mL (30-100)
== END 2024-10-02 08:12 | disposition home or self-care (01) ==
LOC: HO.LAB 08:11
PROVIDERS: PCP Internal Medicine; Visit Provider Nurse Practitioner Family
DX: E11.22 Type 2 diabetes mellitus with diabetic chronic kidney disease (principal); N18.31 Chronic kidney disease, stage 3a; E78.2 Mixed hyperlipidemia; R74.8 Abnormal levels of other serum enzymes; D50.8 Other iron deficiency anemias; E55.9 Vitamin D deficiency, unspecified; K21.9 Gastro-esophageal reflux disease without esophagitis; R10.9 Unspecified abdominal pain
CPT/HCPCS: 36415; 80061; 82306; 82607; 82728; 82746; 83540; 86364; 99212

== ENCOUNTER → 2024-11-02 14:17 | Outpatient (BNV) | payer MEDICARE, SELFPAY | PROVIDERS: PCP Internal Medicine; Visit Provider Internal Medicine | DX: D50.9 Iron deficiency anemia, unspecified (principal) | CPT/HCPCS: 99204 ==

== ENCOUNTER 2024-11-13 12:31 | Outpatient (REF) | payer MEDICARE, SELFPAY ==
--- NOTE | ~2024-11-13 | XR_ITS ---
EXAMINATION: XR ELBOW, RIGHT CLINICAL INFORMATION: right elbow pain COMPARISON: None available. TECHNIQUE: AP, lateral, and oblique views of the right elbow. FINDINGS: No acute cortical disruption or malalignment. No lytic or blastic lesions. No joint effusion. No gross calcifications in the soft tissues. No subcutaneous emphysema. XR/XR elbow RT min 3V IMPRESSION: Normal x-ray. Electronically signed by: Jose Draper MD 11/13/2024 02:22 PM EDT
--- OUTSIDE RECORDS SUMMARY | 2024-11-13 13:16 | XMS_ITS | Encounter Summary ---
Author Organization [employer] Address [address] [place] [address] [facility] [place] [address] Care Team Providers Care Changer Fixer Name Role Phone Martín Cabrera MD Primary Care Provider [phone] Radha Dawson PharmD Unavailable [phone] Encounter Details Date Type Department Care Team (Late st Contact Info) Description 10/01/2022 Orders Only [facility] MED & PEDS [address] [place] [address] Martín Cabrera MD 505 [place] [address] Microcytic anemia (Primary Dx) Social History Tobacco [...] Care Team (Late st Contact Info) Description 11/29/2024 2:00 PM EDT Medication Management [facility] MED & PEDS [address] [place] [address] Radha Dawson, PharmD [address] [place] [address] Scheduled Orders Name Type Priority Associated Diagnoses Orde r Schedule Iron, TIBC And Ferritin Panel Lab Routine Microcytic anemia Expected: 10/01/2022 (Approximate), Expires: 10/02/2023 documented as of this encounter Visit Diagnoses Diagnosis Microcytic anemia- Primary Unspecified iron deficiency anemia documented in this encounter Care Teams Changer Fixer Relationship Specialty Start Date End Date Martín Cabrera MD [address] [place] [address] PCP - General Internal Medicine 12/27/12 Radha Dawson PharmD [address] [place] [address] Pharmacist Internal Medicine 05/24/24 documented as of this encounter
== END 2024-11-13 12:32 | disposition home or self-care (01) ==
LOC: HO.XRAY 12:31
PROVIDERS: PCP Internal Medicine; Visit Provider Internal Medicine
DX: M25.521 Pain in right elbow (principal)
CPT/HCPCS: 73080

== ENCOUNTER → 2024-11-13 12:36 | Outpatient (BNV) | payer MEDICARE, SELFPAY | PROVIDERS: PCP Internal Medicine; Visit Provider Radiology Diagnostic Radiology | DX: M25.521 Pain in right elbow (principal) | CPT/HCPCS: 73080 ==

== ENCOUNTER 2025-01-01 14:53 | Outpatient (AMB) | payer MEDICARE, SELFPAY ==
--- NOTE | 2025-01-01 14:58 | A.OFFVIS_ITS ---
Vital Signs 01/01/25 15:03 Height 5 ft 6 in Weight 183 lb BMI 29.5 BP 154/80 H Blood Pressure Location Rt brachial Position Sitting Pulse 66 Pulse Source Pulse Oximeter Pulse Oximetry (%) 98 Oxygen Delivery Method Room Air Intake Visit Reasons: gerd Intake Note: ESTABLISHED PATIENT for GERD mgmt. Chief Complaint; Pt denies any GI sx or concerns at this time. Confirms that he is doing OK w/o Rx intervention. Inspector Ball Points Required: Yes Inspector Ball Points Services: Inspector Ball Points Present Inspector Ball Points Name: [facility] Brandon Mcmullen [id number] Information Interpreted: clinical only Accompanied by: Family/Other Allergies penicillin G (Penicillin G) Allergy (Mild, Verified 01/01/25 14:59) SYNCOPE HPI HPI gerd: Details: LAST VISIT GERD (gastroesophageal reflux disease) Anemia Plan Patient will start taking pantoprazole in the morning. Avoid dietary triggers and late night snacking. Patient will continue taking iron supplements. Referral to Hematology sent. Food high in iron recommended follow-up in 3 months, sooner on as needed basis. Patient declines colonoscopy as he had a negative Cologuard couple months ago. He is agreeable to current plan of care and verbalizes understanding of instructions. He was given the opportunity to ask questions and all questions answered. Thank you for allowing me to participate in his care Orders Vitamin D 25-OH (D2 and D3) Today E55.9 Vitamin B12 and Folate Today K21.9 Transglutaminase IgA Today R10.9 Ferritin Today R74.8 IRON PROFILE Today D64.9 Referrals Hematology & Oncology Referral D64.9 New pantoprazole 20 mg PO DAILY 30 tabs 3RF TODAY'S VISIT: Patient is here today for follow-up. Patient reports that he has been doing fairly well. Has not experienced any acid reflux except for occasional epigastric burning at bedtime. Occasionally patient will eat late at night. He is no longer taking pantoprazole. Patient denies dyspepsia, dysphagia or odynophagia. Patient denies melena, hematochezia, unintentional weight loss or ribbon like stools. Patient was referred to Hematology and saw him back in November. Chronic microcytosis with mild anemia suspicious for thalassemia. Patient otherwise is doing well from GI standpoint [facility] Medical History Anemia GERD (gastroesophageal reflux disease) Obstructive sleep apnea HTN (hypertension) Surgical History History of colonoscopy Family History Father HTN (hypertension) Mother No problems noted. Social History Household Members: Spouse Housing: House Do you presently have visiting nurse or other home services: No Patient Tobacco Use Status: Never used Tobacco service: No Current occupational status: employed Review of Systems Const Denies weight gain and Denies weight loss ENT Reports no additional complaints, Denies dysphagia and Denies odynophagia Card Reports no additional complaints Resp Reports no additional complaints GI Denies abdominal pain, Denies belching, Denies melena, Denies bloating, Denies change in bowel habits, Denies dysphagia, Denies excessive flatus, Denies dyspepsia, Denies heartburn, Denies diarrhea, Denies loose stools, Denies nausea, Denies odynophagia and Denies vomiting Reports no additional complaints Musc Reports no additional complaints Neuro Reports no additional complaints Psych Reports no additional complaints Endo Reports no additional complaints Physical Exam Vital Signs: Last Vital Signs Pulse 66 01/01/25 15:03 BP 154/80 H 01/01/25 15:03 Pulse Ox 98 01/01/25 15:03 Oxygen Delivery Method Room Air 01/01/25 15:03 BMI result Body Mass Index 29.5 Const General: healthy appearing, no acute distress and well developed Nutritional Appearance: well nourished Orientation/consciousness: patient oriented x3 Resp Effort & Inspection: normal respiratory effort, able to speak in complete sentences, no tracheal deviation and symmetric chest movement Auscultation: clear to auscultation bilaterally Cardio Rate: regular rate GI Inspection: Yes normal to inspection and No distended Palpation (GI): Soft to palpation, not firm, nontender and No hepatosplenomegaly present Auscultation: normal bowel sounds General: Yes no CVA tenderness Back/Spine/Pelvis Back: no CVA tenderness Skin General skin exam: elasticity normal, turgor normal and dry skin Neuro General: patient oriented x3 Psych Appearance: grossly normal Mental Status: mental status grossly normal Assessment & Plan Assessment & Plan (1) GERD (gastroesophageal reflux disease): Code(s): K21.9 - Gastro-esophageal reflux disease without esophagitis Category: Medical Qualifiers: Esophagitis presence: esophagitis presence not specified Qualified Code(s): K21.9 - Gastro-esophageal reflux disease without esophagitis (2) Anemia: Code(s): D64.9 - Anemia, unspecified Category: Medical Qualifiers: Anemia type: iron deficiency Iron deficiency anemia type: inadequate dietary iron intake Qualified Code(s): D50.8 - Other iron deficiency anemias Plan Patient reports that he has been feeling well, occasional reflux when he is eating something late at night. He can take famotidine if needed. Patient was encouraged to avoid dietary triggers in late night snacking. Staying upright for minimum 3 hours after meals discussed with patient. Patient will follow-up in the office in 6 months. He was encouraged to call us if he will have any GI concerning symptoms. Patient is agreeable to current plan of care and verbalizes understanding of instructions. He was given the opportunity to ask questions and all questions answered. Thank you for allowing me to participate in his care Medications: New famotidine (Pepcid) 20 mg PO DAILY 90 tabs 3RF K21.9 - Gastro-esophageal reflux disease without esophagitis Coding Level of Care Code Est Pt Level 3 (39433) Diagnoses Gastroesophageal reflux disease, unspecified whether esophagitis present K21.9 Esophagitis presence: esophagitis presence not specified Iron deficiency anemia secondary to inadequate dietary iron intake D50.8 Anemia type: iron deficiency Iron deficiency anemia type: inadequate dietary iron intake Time Spent (min) 25 Comment 15 minutes spent with patient and additional 10 minutes spent reviewing his records
[2025-01-01 15:03] VITALS: BP 154/80; PULSE 66; O2SAT 98; BMI 29.5
--- OUTSIDE RECORDS SUMMARY | 2025-01-01 16:12 | XMS_ITS | Encounter Summary ---
Author Organization [employer] Address [address] [place] [address] 7 [place] [address] Care Team Providers Care Burnishing Machine Operator Name Role Phone Martín Cabrera MD Primary Care Provider [phone] Radha Dawson PharmD Unavailable [phone] Reason for Visit * Reason Comments Med Refill Encounter Details Date Type Department Care Team ([facility] st Contact Info) Description 12/27/2023 Refill [facility] CHC MED & PEDS [address] [place], [place] [phone] Martín Cabrera MD [address] [place] [address] Essential hypertension Social History Tobacco Use Types [...] as of this encounter Plan of Treatment Not on file documented as of this encounter Visit Diagnoses Diagnosis Essential hypertension Unspecified essential hypertension documented in this encounter Care Teams Burnishing Machine Operator Relationship Specialty Start Date End Date Martín Cabrera MD [address] [place] [address] PCP - General Internal Medicine 12/27/12 Radha Dawson PharmD [address] [place] [address] Pharmacist Internal Medicine 05/24/24 documented as of this encounter
--- OUTSIDE RECORDS SUMMARY | 2025-01-01 16:12 | XMS_ITS | Encounter Summary ---
Author Organization [employer] Address [address] [facility] 7 [place] [address] Care Team Providers Care Architectural Draftsman Name Role Phone Martín Cabrera MD Primary Care Provider [phone] Radha Dawson PharmD Unavailable [phone] Encounter Details Date Type Department Care Team ([facility] Contact Info) Description 11/14/2024 Results Follow-Up [facility] MED & PEDS [address] [place] [address] Martín Cabrera MD [address] [place] [address] XR Elbow 3+ Views Right Social History Tobacco Use Types Packs/Day Years [...] documented as of this encounter Care Teams Architectural Draftsman Relationship Specialty Start Date End Date Martín Cabrera MD [address] [place] [address] PCP - General Internal Medicine 12/27/12 Radha Dawson PharmD [address] [place] [address] Pharmacist Internal Medicine 05/24/24 documented as of this encounter
--- OUTSIDE RECORDS SUMMARY | 2025-01-01 16:12 | XMS_ITS | Encounter Summary ---
Author Organization [employer] Address [address] [place] [address] 7 [place] [address] Care Team Providers Care Laboratory Analyst Name Role Phone Martín Cabrera MD Primary Care Provider [phone] Radha Dawson PharmD Unavailable [phone] Reason for Visit * Reason Onset Date Comments Med Refill 06/29/2024 Encounter Details Date Type Department Care Team ([facility] st Contact Info) Description 06/29/2024 Refill [facility] CHC MED & PEDS [address] [place] [address] Martín Cabrera MD [address] [place] [address] Type 2 diabetes mellitus with stage 3a chronic kidney disease, without long-term current use of insulin ([facility]) Social History Tobacco Use Types Packs/Day Years [...] disease, without long-term current use of insulin (HCC) documented in this encounter Additional Health Concerns Assessment Noted Time PHQ-9 Depression Total Score: 2 05/29/19 4:27 PM EST documented as of this encounter Care Teams Laboratory Analyst Relationship Specialty Start Date End Date Martín Cabrera MD [address] [place] [address] PCP - General Internal Medicine 12/27/12 Radha Dawson PharmD [address] [place] [address] Pharmacist Internal Medicine 05/24/24 documented as of this encounter
--- OUTSIDE RECORDS SUMMARY | 2025-01-01 16:12 | XMS_ITS | Encounter Summary ---
Author Organization [employer] Address [address] [place] [address] [place] [address] Care Team Providers Care Fixed Income Director Name Role Phone Martín Cabrera MD Primary Care Provider [phone] Radha Dawson PharmD Unavailable [phone] Reason for Visit * Reason Onset Date Comments Med Refill 01/01/2025 Encounter Details Date Type Department Care Team ([facility] st Contact Info) Description 01/01/2025 Refill [facility] CHC MED & PEDS [address] [place] [address] Martín Cabrera MD [address] [place] [address] Mixed hyperlipidemia Social History Tobacco Use Types Packs/Day Years [...] as of this encounter Visit Diagnoses Diagnosis Mixed hyperlipidemia documented in this encounter Additional Health Concerns Assessment Noted Time PHQ-9 Depression Total Score: 2 05/29/19 4:27 PM EST documented as of this encounter Care Teams Fixed Income Director Relationship Specialty Start Date End Date Martín Cabrera MD [address] [place] [address] PCP - General Internal Medicine 12/27/12 Radha Dawson PharmD [address] [place] [address] Pharmacist Internal Medicine 05/24/24 documented as of this encounter
--- OUTSIDE RECORDS SUMMARY | 2025-01-01 16:12 | XMS_ITS | Encounter Summary ---
Author Organization [employer] Address [address] [facility] [address] [place] [address] Care Team Providers Care Music Minister Name Role Phone Martín Cabrera MD Primary Care Provider [phone] Radha Dawson PharmD Unavailable [phone] Encounter Details Date Type Department Care Team (Late st Contact Info) Description 08/22/2024 Orders Only [facility] [address] [place] [address] ProviderDavon MD Social History Tobacco Use Types Packs/Day Years [...] on file documented as of this encounter Procedures Procedure Name Priority Date/Time Associated Diagnosis Comments DIABETES EYE EXAM Routine 08/03/2024 9:40 AM EDT documented in this encounter Results * Hm Diabetes Eye Exam (08/03/2024 9:40 AM EDT) Historical Provider HEALTH MAINTENANCE Final Result documented in this encounter Visit Diagnoses Not on filedocumented in this encounter Additional Health Concerns Assessment Noted Time PHQ-9 Depression Total Score: 2 05/29/19 4:27 PM EST documented as of this encounter Care Teams Music Minister Relationship Specialty Start Date End Date Martín Cabrera MD [address] [place] [address] PCP - General Internal Medicine 12/27/12 Radha Dawson PharmD [address] [place] [address] Pharmacist Internal Medicine 05/24/24 documented as of this encounter
--- OUTSIDE RECORDS SUMMARY | 2025-01-01 16:12 | XMS_ITS | Clinical Summary ---
Author Organization [employer] Address [address] [place] [address] [address] [place] [address] Care Team Providers Care Hairspring Cutter Name Role Phone Martín Cabrera MD Primary Care Provider [phone] Radha Dawson PharmD Unavailable Allergies Active Allergy Reactions Criticality Noted Date [...] bedtime. 30 tablet 3 11/23/19 24 Active Blood Glucose Monitoring Suppl (Contour [employer]iconductorStyle Republic Lite) w/Device kitIndications:Ty pe 2 diabetes mellitus with stage 3a chronic kidney disease, without long-term current use of insulin (HCC) Use to test blood sugar 2 times daily 1 kit 11/23/19 24 Active metoprolol succinate XL (Toprol-XL) 100 MG 24 hr tabletIndications :Primary hypertension Take 1 tablet (100 mg) by mouth Once per day. Do not crush or chew. 30 tablet 11 05/15/19 25 Active valsartan-hydroCH LOROthiazide (Diovan HCT) 320-12.5 MG tabletIndications :Primary hypertension Take 1 tablet by mouth Once per day. 30 tablet 05/29/19 25 026 Active metFORMIN (Glucophage) 1000 MG tablet Take 1 tablet (1,000 mg) by mouth with breakfast and with evening meal. 60 tablet 06/08/19 25 026 Active FREESTYLE LITE test stripIndications: Type 2 diabetes mellitus with stage 3a chronic kidney disease, without long-term current use of insulin ([facility]) Use to test blood sugar 2 times daily 100 each 06/29/19 25 Active Lancets miscIndications:T ype 2 diabetes mellitus with stage 3a chronic kidney disease, without long-term current use of insulin ([facility]) USE TO TEST BLOOD SUGAR TWICE A DAY 100 each 06/30/19 25 Active Alcohol Swabs 70 % padsIndications:T ype 2 diabetes mellitus with stage 3a chronic kidney disease, without long-term current use of insulin ([facility]) USE TO TEST BLOOD SUGAR TWICE A DAY 100 each 06/30/19 25 Active amLODIPine (Norvasc) 10 MG tabletIndications :Essential hypertension Take 1 tablet (10 mg) by mouth in the morning. 90 tablet 3 07/11/19 25 Active empagliflozin (Jardiance) 10 MG Take 1 tablet (10 mg) by mouth Once per day. 30 tablet 08/24/19 25 Active simvastatin (Zocor) 40 MG tabletIndications :Mixed hyperlipidemia TAKE ONE TABLET BY MOUTH ONCE DAILY 30 tablet 10/25/19 25 Active MAGNESIUM CITRATE PO Take 165 mg by mouth Once per day. Active Krill Oil (Laramie-3) 500 MG capsule Take 500 mg by mouth Once per day. Active zinc gluconate 50 MG tablet Take 50 mg by mouth Once per day. Active ferrous sulfate 325 (65 Fe) MG tablet Take 325 mg by mouth Once per day. Active Blood Glucose Monitoring Suppl (Accu-Chek Guide) w/Device kitIndications:Ty pe 2 diabetes mellitus with stage 3a chronic kidney disease, without long-term current use of insulin (HCC) 1 each in the morning. 1 kit 2 11/01/19 25 Active glucose blood (Accu-Chek Guide Test) test stripIndications: Type 2 diabetes mellitus with stage 3a chronic kidney disease, without long-term current use of insulin ([facility]) To check the blood sugar daily 100 each 12 11/01/19 25 026 Active Lancets miscIndications:T ype 2 diabetes mellitus with stage 3a chronic kidney disease, without long-term current use of insulin ([facility]) 1 Box in the morning. 100 each 11/01/19 25 Active ibuprofen 600 MG tabletIndications :Right elbow pain TAKE ONE TABLET THREE TIMES DAILY 20 tablet 01/02/20 25 Active ibuprofen 600 MG tabletIndications :Right elbow pain Take 1 tablet (600 mg) by mouth 3 times daily. 20 tablet 11/13/19 25 025 Discontinued Active Problems Problem Noted Date Diagnosed Date [...] Encounters Date Type Department Care Team Description 01/01/2025 Refill [facility] [address] [place] [address] Martín Cabrera MD Primary hypertension; Primary hypertension 01/01/2025 Refill [facility] [address] [facility] [place] [address] Martín Cabrera MD Mixed hyperlipidemia 12/31/2024 Refill [facility] [address] [place] [address] Martín Cabrera MD Type 2 diabetes mellitus with stage 3a chronic kidney disease, without long-term current use of insulin ([facility]); Right elbow pain 12/10/2024 Telephone [facility] [address] [place] [phone] Martín Cabrera MD 11/29/2024 Travel 11/14/2024 Results Follow-Up [facility] [address] [facility] [place] [address] Martín Cabrera MD XR Elbow 3+ Views Right 11/12/2024 5:20 PM EDT Office Visit [facility] [address] [place] [phone] Martín Cabrera MD Right elbow pain (Primary Dx) 11/12/2024 Travel 10/31/2024 Telephone [facility] [address] [place] [address] Martín Cabrera MD 10/25/2024 Travel 10/25/2024 Refill [facility] [address] [facility] [place] [address] Martín Cabrera MD Type 2 diabetes mellitus with stage 3a chronic kidney disease, without long-term current use of insulin (CMS/HCC) 10/23/2024 Refill [facility] [address] [facility] [place] [address] Martín Cabrera MD Mixed hyperlipidemia 10/02/2024 Orders Only GENERIC EXTERNAL DATA DEPARTMENT Provider, Generic External Data from Last 3 Months Immunizations Immunization Administration Dates Next Due Influenza High-dose Quadrivalent [...] Sign Reading Time Taken Comments Blood Pressure 144/86 11/12/2024 5:08 PM EDT Pulse 76 11/12/2024 5:08 PM EDT Temperature 36.6 C (97.9 F) 09/25/2024 2:47 PM EDT Respiratory Rate 18 11/12/2024 5:08 PM EDT Oxygen Saturation 95% 09/25/2024 2:47 PM EDT Inhaled Oxygen Concentration - - Weight 86.1 kg (189 lb 12.8 oz) 11/12/2024 5:08 PM EDT Height 170 cm (5' 6.93 ) 11/12/2024 5:08 PM EDT Body Mass Index 29.79 11/12/2024 5:08 PM EDT Plan of Treatment Health Maintenance Due Date Last Done Comments CT Colonography 1955 Colonoscopy 1955 FIT 1955 Sigmoidoscopy 1955 RSV Patients and Patients Aged 60 years or older (1 - Risk 60-74 years 1-dose series) 2016 Diabetes: Foot Exam 11/22/2024 11/23/2023 Lipid Panel 11/22/2024 11/23/2023, 10/03, 12/26/2020, Additional history exists COVID-19 Vaccine ( season) 2024 07/15/2020, 06/17/2020 Influenza Vaccine (#1) 2024 , 01/12/2023, 01/06/2021, Additional history exists Diabetes: Hemoglobin A1C 03/01/2025 025, 08/23/2024, 05/29/2024, Additional history exists Alcohol/Substance Use Screening 05/29/2025 05/29/2024 Depression Screening 05/29/2025 05/29/2024, 05/29/19 SDOH Screening 05/29/2025 05/29/2024 FOBT 06/25/2025 06/25/2024 Tobacco Screening 11/12/2025 11/12/2024 Eye Exam 08/03/2026 08/03/2024 DTaP/Tdap/Td Vaccines (2 - Td or Tdap) 09/28/2026 09/28/2016, 10/04/2007 Colorectal Cancer Screening 06/26/2027 FIT DNA/Cologuard 06/26/2027 06/25/2024 Zoster Vaccines Completed 12/30/2020, 10/14/2020 Hepatitis C Screening Completed 11/23/2023, 022 Pneumococcal Vaccine: 50+ Years Completed 05/29/2024, 05/02/2019 [...] patient's age to complete this topic Meningococcal B Vaccine Aged Out No l onger eligible based on patient's age to complete [...] Name Priority Date/Time Associated Diagnosis Comments POCT GLYCATED HEMOGLOBIN, TOTAL Routine 11/29/2024 2:54 PM EDT Type 2 diabetes mellitus with stage 3a chronic kidney disease, without long-term current use of insulin ([facility]) XR ELBOW 3+ VIEWS RIGHT Routine 11/14/19 12:37 PM EDT Right elbow pain VITAMIN D 25-OH (D2 AND D3) Routine 10/02/2024 9:11 AM EDT TISSUE TRANSGLUTAMINASE AB, IGA Routine 10/02/2024 9:11 AM EDT VITAMIN B12/FOLATE, SERUM PANEL Routine 10/02/2024 9:11 AM EDT FERRITIN Routine 10/02/2024 9:11 AM EDT HM DIABETES EYE EXAM Routine 08/03/2024 9:40 AM EDT LAB COLOGUARD COLON CANCER SCREEN Routine 06/25/2024 8:00 AM EDT Screening for colon cancer HEPATITIS C AB W/REFL TO HCV RNA, [...] Recently Relevant to Health Maintenance Results * (ABNORMAL) POCT A1c (11/29/2024 2:54 PM EDT) Hemoglobin A1C 7.8(A) 4.0 - 5.7 % QC Media Lot # [id number] Lot# Expiration Date [id number] Blood 11/29/2024 2:54 PM EDT us Martín Cabrera MD POINT OF CARE TEST ENTER/ED IT ORDERABLES Final Result * XR Elbow 3+ Views Right (11/13/2024 12:37 PM EDT) Anatomical Region Laterality Modality Upper Extremities, Elbow Right Radiogr aphic Imaging 11/13/2024 12:3 7 PM EDT Narrative 11/13/2024 2:27 PM EDT [address] [address] XRay Report Signed Patient: Akil Wilkins MR#: [id number] : 1955 Acct:[id number] Age/Sex: 69 / M ADM Date: 11/13/24 Loc: [facility] Attending Dr: Martín Cabrera MD Ordering Physician: Martín Cabrera MD Date of Service: 11/13/24 Procedure(s): XR elbow RT min 3V Accession Number(s): [id number] cc: Martín Cabrera MD EXAMINATION: XR ELBOW, RIGHT CLINICAL INFORMATION: right elbow pain COMPARISON: None available. TECHNIQUE: AP, lateral, and oblique views of the right elbow. FINDINGS: No acute cortical disruption or malalignment. No lytic or blastic lesions. No joint effusion. No gross calcifications in the soft tissues. No subcutaneous emphysema. XR/XR elbow RT min 3V IMPRESSION: Normal x-ray. Electronically signed by: Jose Draper MD 11/13/2024 02:22 PM EDT Dictated By: Jose Glez MD Signed By: <Electronically signed by Jose Adkins MD in OV> 11/13/24 1422 DD/ 1237 TD/TT: 11/13/24 1245 Neurology Epilepsy Physician: Procedure Note Donotuseinterpreter, Image - 11/13/[address] [address] XRay Report Signed Patient: Akil WilkinsMR#: [id number] : 1955cct:[id number] Age/Sex: 69 / MADM Date: 11/13/24 Loc: [facility] Attending Dr: Martín Cabrera MD Ordering Physician: Martín Cabrera MD Date of Service: 11/13/24 Procedure(s): XR elbow RT min 3V Accession Number(s): [id number] cc: Martín Cabrera MD EXAMINATION: XR ELBOW, RIGHT CLINICAL INFORMATION: right elbow pain COMPARISON: None available. TECHNIQUE: AP, lateral, and oblique views of the right elbow. FINDINGS: No acute cortical disruption or malalignment. No lytic or blastic lesions. No joint effusion. No gross calcifications in the soft tissues. No subcutaneous emphysema. XR/XR elbow RT min 3V IMPRESSION: Normal x-ray. Electronically signed by: Jose Draper MD 11/13/2024 02:22 PM EDT RP Dictated By: Jose Glez MD Signed By: <Electronically signed by Jose Adkins MDin OV> 11/13/24 1422 DD/ 1237 TD/TT: 11/13/24 1245 Neurology Epilepsy Physician: Martín Cabrera MD IMG XR PROCEDURES Edited Re sult - Final * VITAMIN D 25-OH (D2 AND D3) (10/02/2024 9:11 AM EDT) Vitamin D, 25-OH, D2 <4 ng/mL [facility] Comment:This test was develo ped and its analytical performancecharacteristics have been determined by [employer], [place]. It hasnot been cleared or approved by the U.S. Food and DrugAdministration. This assay has been validated pursuantto the CLIA regulations and is used for clinicalpurposes.THIS TEST WAS PERFORMED AT:[employer] [id number] [place] [address]FJLZKSDRAMONA YE MD,PHD Vitamin D, 25-OH, D3 30 ng/mL [facility] Comment:This test was develo ped and its analytical performancecharacteristics have been determined by [employer] [place]. It hasnot been cleared or approved by the U.S. Food and DrugAdministration. This assay has been validated pursuantto the CLIA regulations and is used for clinicalpurposes. Vitamin D, 25-OH, Total 30 30 - 100 ng/mL [facility] Comment:Vitamin D, 25-Hydrox y reports concentrations of twocommon forms, 25-OHD2 and 25-OHD3. 25-OHD3 indicatesboth endogenous production and supplementation.25-OHD2 is an indicator of exogenous sources such asdiet or supplementation. Therapy is based onmeasurement of Total 25-OHD, with levels <20 ng/mLindicative of Vitamin D deficiency, while levelsbetween 20 ng/mL and 30 ng/mL suggest insufficiency.Optimal levels are > or = 30 ng/mL.For additional information, please refer tohttp://education.HDmessaging/faq/LQU680(This link is being provided for informational/educational purposes only.) 10/02/2024 9:11 AM EDT 10/02/2024 9:11 AM EDT us Generic External Data Provider LAB BLOOD ORDERAB LES Final Result [facility] [address] [place] [phone] * (ABNORMAL) Vitamin B12 (Cobalamin) and Folate Panel, Serum (10/02/2024 9:11 AM EDT) Vitamin B12 1,721(H) 200 - 900 pg/mL [facility] Comment:NORMAL 200-900 PG/ML INDETERMINATE 160-199 PG/ML DEFICIENT < 160 PG/ML Folate 7.8 > or = 4.0 ng/mL [facility] Comment:Reference Values:> o r = 4.0 ng/mL< 4.0 ng/mL suggests folate deficiency Methotrexate, aminopterin and folinic acid(leucovorin) are chemotherapeutic agents whose molecularstructures are similar to folate; therefore, the Architectfolate assay cannot be used for patients using these drugs. 10/02/2024 9:11 AM EDT 10/02/2024 9:11 AM EDT us Generic External Data Provider LAB BLOOD ORDERAB LES Final Result Performing Organization Address [facility] de Phone Number [facility] [address] [place] [phone] * Tissue Transglutaminase Antibody, IgA (10/02/2024 9:11 AM EDT) Transglutaminase IgA <1.0 U/mL [facility] Comment:Value Interpretation ----- <15.0 Antibody not detected> or = 15.0 Antibody detectedTHIS TEST WAS PERFORMED AT:[employer] [place] [id number] FRENCH MD 10/02/2024 9:11 AM EDT 10/02/2024 9:11 AM EDT Generic External Data Provider LAB BLOOD ORDERAB LES Final Result Performing Organization Address [facility] de Phone Number [facility] [address] [place] [phone] * Ferritin (10/02/2024 9:11 AM EDT) Ferritin 166 20 - 250 ng/mL [facility] 10/02/2024 9:11 AM EDT 10/02/2024 9:11 AM EDT Generic External Data Provider LAB BLOOD ORDERAB LES Final Result Performing Organization Address [facility] Co de Phone Number [facility] [address] [place] [phone] * Hm Diabetes Eye Exam (08/03/2024 9:40 AM EDT) Historical Provider HEALTH MAINTENANCE Final Result * Cologuard?? colon cancer screening (06/25/2024 8:00 AM EDT) Cologuard Result Negative Negative 06/30/19 10:05 PM EDT Patient Communicator (CLIA #:[id number]) Comment: NEGATIVE TEST RESULT. A negative Cologuard result indicates a low likelihood that a colorectal cancer (CRC) or advanced adenoma (adenomatous polyps with more advanced pre-malignant features) is present. The chance that a person with a negative Cologuard test has a colorectal cancer is less than 1 in 1500 (negative predictive value >99.9%) or has an advanced adenoma is less than 5.3% (negative predictive value 94.7%). These data are based on a prospective cross-sectional study of 10,000 individuals at average risk for colorectal cancer who were screened with both Cologuard and colonoscopy. (Geena Meadows al, N Engl J Med 2014;370(14):2375-1049) The normal value (reference range) for this assay is negative. COLOGUARD RE-SCREENING RECOMMENDATION: Periodic colorectal cancer screening is an important part of preventive healthcare for asymptomatic individuals at average risk for colorectal cancer. Following a negative Cologuard result, the [place] [employer] Society and U.S. Multi-Society Task Force screening guidelines recommend a Cologuard re-screening interval of 3 years. References: [employer] Guideline for Colorectal Cancer Screening: https://www.cancer.org/cancer/zpldv-nmrgcc-htunfz/ogzyymyth-jpoeqdstk-fqkgkkf/ac s-rec ommendations.html.; Ciaran DK, Gloria CR, Doyle ArzateK, Colorectal Cancer Screening: Recommendations for Physicians and Patients from the U.S. Multi-Society Task Force on Colorectal Cancer Screening , Am J Gastroenterology 2017; 112:0542-7949. TEST DESCRIPTION: Composite algorithmic analysis of stool DNA-biomarkers with hemoglobin immunoassay. Quantitative values of individual biomarkers are not reportable and are not associated with individual biomarker result reference ranges. Cologuard is intended for colorectal cancer screening of adults of either sex, 45 years or older, who are at average-risk for colorectal cancer (CRC). Cologuard has been approved for use by the U.S. FDA. The performance of Cologuard was established in a cross sectional study of average-risk adults aged 50-84. Cologuard performance in patients ages 45 to 49 years was estimated by sub-group analysis of near-age groups. Colonoscopies performed for a positive result may find as the most clinically significant lesion: colorectal cancer [4.0%], advanced adenoma (including sessile serrated polyps greater than or equal to 1cm diameter) [20%] or non- advanced adenoma [31%]; or no colorectal neoplasia [45%]. These estimates are derived from a prospective cross-sectional screening study of 10,000 individuals at average risk for colorectal cancer who were screened with both Cologuard and colonoscopy. (Geena Meadows al, N Engl J Med 2014;370(14):0865-3818.) Cologuard may produce a false negative or false positive result (no colorectal cancer or precancerous polyp present at colonoscopy follow up). A negative Cologuard test result does not guarantee the absence of CRC or advanced adenoma (pre-cancer). The current Cologuard screening interval is every 3 years. ([place] [employer] and U.S. Multi-Society Task Force). Cologuard performance data in a 10,000 patient pivotal study using colonoscopy as the reference method can be accessed at the following location: www.[employer]/results. Additional description of the Cologuard test process, warnings and precautions can be found at www.BuySimpleoguard.com. Stool specimen (specimen) 06/25/2024 8:00 AM EDT 06/26/2024 12:39 PM EDT Martín Cabrera MD LAB MOLECULAR DIAGNOSTICS O RDERABLES Final Result Patient Communicator (CLIA #:[id number]) [address] [place] [address], * Hepatitis C Antibody with Reflex to HCV, RNA, Quantitative, Real-Time PCR (11/23/2023 3:48 PM EDT) Hepatitis C Antibody Nonreactive Nonreactive [facility] Comment:Antibodies to HCV no t detected; does not exclude early acuteHCV infection. Blood Venous blood specimen / Unknown 11/23/2023 3:48 PM EDT 11/23/2023 5:57 PM EDT us Martín Cabrera MD LAB BLOOD ORDERABLES Final Result Performing Organization Address [facility]/ZIP Co de Phone Number [facility] [address] [place] [address] [phone] * (ABNORMAL) Lipid Panel, Standard (11/23/2023 3:48 PM EDT) Triglycerides 129 <150 mg/dL [facility] Comment:Desirable Triglyceri de: less than 150 mg/dLBorderline High Triglyceride 150-199 mg/dLHigh Triglyceride: 200-499 mg/dLVery High Triglyceride: greater than or equal to 5OO mg/dL Cholesterol 140 <200 mg/dL [facility] Comment:Desirable Cholestero l: less than 200 mg/dLBorderline High Cholesterol: 200-239 mg/dLHigh Cholesterol: greater than 239 mg/dL LDL Cholesterol Calculated 76 <100 mg/dL [facility] Comment:Desirable LDL: less than 100 mg/dLNear Optimal/Above Optimal LDL: 110- 129 mg/dLBorderline High LDL: 130-159 mg/dLHigh LDL: 160-189 mg/dLVery High LDL: greater than or equal to 190 mg/dL HDL Cholesterol 39(L) >40 mg/dL [facility] Comment:Desirable HDL: great er than 40 mg/dL Note: This HDL assay may give artificially low results in patients with liver disease. Blood Venous blood specimen / Unknown 11/23/2023 3:48 PM EDT 11/23/2023 5:57 PM EDT us Martín Cabrera MD LAB BLOOD ORDERABLES Final Result Performing Organization Address City/[facility]/ZIP Co de Phone Number [facility] [address] [place] [phone] [phone] from Last 3 Months or Most Recently Relevant to Health Maintenance Insurance [facility] [employer] Care Teams Hairspring Cutter Relationship Specialty Start Date End Date Martín Cabrera MD [address] [place] [phone] PCP - General Internal Medicine 12/27/12 Radha Dawson PharmD [address] [place] [phone] Pharmacist Internal Medicine 05/24/24
--- OUTSIDE RECORDS SUMMARY | 2025-01-01 16:12 | XMS_ITS | Encounter Summary ---
Author Organization [employer] Address [address] [place] [address] 7 [place] [address] Care Team Providers Care Data Analyst Etl Developer Name Role Phone Martín Cabrera MD Primary Care Provider [phone] Radha Dawson PharmD Unavailable [phone] Reason for Visit * Reason Comments Med Refill Encounter Details Date Type Department Care Team ([facility] st Contact Info) Description 12/31/[address] [facility] [address] [place], [place] [phone] Martín Cabrera MD [address] [place] [address] Type 2 diabetes mellitus with stage 3a chronic kidney disease, without long-term current use of insulin (CMS/[facility]); Right elbow pain Social History Tobacco Use Types Packs/Day Years [...] without long-term current use of insulin (HCC) Right elbow pain Pain in joint, upper arm documented in this encounter Additional Health Concerns Assessment Noted Time PHQ-9 Depression Total Score: 2 05/29/19 4:27 PM EST documented as of this encounter Care Teams Data Analyst Etl Developer Relationship Specialty Start Date End Date Martín Cabrera MD [address] [place] [address] PCP - General Internal Medicine 12/27/12 Radha Dawson PharmD [address] [place] [address] Pharmacist Internal Medicine 05/24/24 documented as of this encounter
--- OUTSIDE RECORDS SUMMARY | 2025-01-01 16:12 | XMS_ITS | Encounter Summary ---
Author Organization [employer] Address [address] [place] [address] 7 [place] [address] Care Team Providers Care Program Director [employer] Name Role Phone Martín Cabrera MD Primary Care Provider [phone] Radha Dawson PharmD Unavailable [phone] Reason for Visit * Reason Onset Date Comments Med Refill 10/25/2024 Encounter Details Date Type Department Care Team ([facility] st Contact Info) Description 10/25/2024 Refill [facility] [address] [place] [address] Martín Cabrera MD [address] [place] [address] Type 2 diabetes mellitus with stage 3a chronic kidney disease, without long-term current use of insulin ([facility]) Social History Tobacco Use Types Packs/Day Years [...] documented as of this encounter Care Teams Program Director [employer] Relationship Specialty Start Date End Date Martín Cabrera MD [address] [place] [address] PCP - General Internal Medicine 12/27/12 Radha Dawson PharmD [address] [place] [address] Pharmacist Internal Medicine 05/24/24 documented as of this encounter
--- OUTSIDE RECORDS SUMMARY | 2025-01-01 16:12 | XMS_ITS | Encounter Summary ---
Author Organization [employer] Address [address] [place] [address] 7 [place] [address] Care Team Providers Care Senior Java Software Engineer Name Role Phone Martín Cabrera MD Primary Care Provider [phone] Radha Dawson PharmD Unavailable [phone] Reason for Visit * Reason Onset Date Comments Med Refill 01/01/2025 Encounter Details Date Type Department Care Team ([facility] st Contact Info) Description 01/01/2025 Refill [facility] CHC MED & PEDS [address] [place] [address] Martín Cabrera MD [address] [place] [address] Primary hypertension; Primary hypertension Social History Tobacco Use Types [...] your housing situation today? I have doreen afshan 05/15/[address] you li [...] Unspecified essential hypertension documented in this encounter Additional Health Concerns Assessment Noted Time PHQ-9 Depression Total Score: 2 05/29/19 4:27 PM EST documented as of this encounter Care Teams Senior Java Software Engineer Relationship Specialty Start Date End Date Martín Cabrera MD [address] [place] [address] PCP - General Internal Medicine 12/27/12 Radha Dawson PharmD [address] [place] [address] Pharmacist Internal Medicine 05/24/24 documented as of this encounter
--- OUTSIDE RECORDS SUMMARY | 2025-01-01 16:12 | XMS_ITS | Encounter Summary ---
Author Organization [employer] Address [address] [facility] 7 [place] [address] Care Team Providers Care Qc Chemist Name Role Phone Martín Cabrera MD Primary Care Provider [phone] Radha Dawson PharmD Unavailable [phone] Reason for Visit * Reason Comments Med Refill Encounter Details Date Type Department Care Team ([facility] st Contact Info) Description 04/15/2023 Refill [facility] CHC MED & PEDS [address] [place], [place] [phone] Tucker Rosas MD [address] [place] [address] Type 2 diabetes mellitus with stage 3a chronic kidney disease, without long-term current use of insulin ([facility]) Social History Tobacco Use Types [...] of insulin (HCC) documented in this encounter Care Teams Qc Chemist Relationship Specialty Start Date End Date Martín Cabrera MD [address] [place] [address] PCP - General Internal Medicine 12/27/12 Radha Dawson PharmD [address] [place] [address] Pharmacist Internal Medicine 05/24/24 documented as of this encounter
--- OUTSIDE RECORDS SUMMARY | 2025-01-01 16:12 | XMS_ITS | Encounter Summary ---
Author Organization [employer] Address [address] [place] [address] 7 [place] [address] Care Team Providers Care Occupational Therapy Manager Name Role Phone Martín Cabrera MD Primary Care Provider [phone] Radha Dawson PharmD Unavailable [phone] Reason for Referral * Consultation (Routine) - Closed Specialty Diagnoses / Procedures Referred By Contanabela dickinson Referred To Contact Gastroenterology Diagnoses Microcytic anemia Martín Cabrera MD [address] [place] [address] Phone: tel: fax: Vivi Lang MD [address] [place] [address] Phone: tel: fax: Referral ID Status Reason Start Date Expiration Date V isits Requested Visits Authorized [id number] Closed Specialty Services Required 06/01/2024 06/01/2025 1 1 Encounter Details Date Type Department Care Team (Late st Contact Info) Description 05/30/2024 Orders Only [facility] MEDICINE [address] [place] [address] Martín Cabrera MD [address] [place], [place] [phone] Microcytic anemia (Primary Dx); Normocytic anemia Social [...] as of this encounter Plan of Treatment Scheduled Referrals Name Type Priority Associated Diagnoses [...] (ABNORMAL) Reticulocyte Count (05/31/2024 3:46 PM EST) Pathologist [facility] Reticulocytes Absolute 0.072 0.026 - 0.095 X10*6/uL [facility] Immature Retic Fraction 11.8 2.3 - 13.4 % [facility] Retic HGB Equivalent 28.2(L) 30.0 - 35.0 pg [facility] Reticulocyte Percent 1.4 0.5 - 1.8 % [facility] Blood Venous blood specimen / Unknown 05/31/2024 3:46 PM EST 05/31/2024 6:11 PM EST us Martín Cabrera MD LAB BLOOD ORDERABLES Final Result Performing Organization Address City/[facility]/ZIP Co de Phone Number [facility] [address] [place] [phone] * Ferritin (05/31/2024 3:46 PM EST) Pathologist [facility] Ferritin 175 20 - 250 ng/mL [facility] Blood Venous blood specimen / Unknown 05/31/2024 3:46 PM EST 05/31/2024 6:11 PM EST Martín Cabrera MD LAB BLOOD ORDERABLES Final Result Performing Organization Address [facility]/ZIP Co de Phone Number [facility] [address] [place] [phone] * Iron And Total Iron Binding Capacity (05/31/2024 3:46 PM EST) Iron 101 45 - 160 mcg/dL [facility] Total Iron Binding Capacity 269 228 - 428 mcg/dL [facility] Percent Iron Saturation 38 15 - 50 % [facility] Unsaturated Iron Binding 168 ug/dL [facility] Blood Venous blood specimen / Unknown 05/31/2024 3:46 PM EST 05/31/2024 6:11 PM EST Martín Cabrera MD LAB BLOOD ORDERABLES Final Result [facility] [address] [place] [phone] [phone] documented in this encounter Visit Diagnoses Diagnosis Microcytic anemia- Primary Unspecified iron deficiency anemia Normocytic anemia Unspecified anemia documented in this encounter Additional Health Concerns Assessment Noted Time PHQ-9 Depression Total Score: 2 05/29/19 4:27 PM EST documented as of this encounter Care Teams Occupational Therapy Manager Relationship Specialty Start Date End Date Martín Cabrera MD [address] [place] [address] PCP - General Internal Medicine 12/27/12 Radha Dawson PharmD [address] [place] [address] Pharmacist Internal Medicine 05/24/24 documented as of this encounter
--- OUTSIDE RECORDS SUMMARY | 2025-01-01 16:12 | XMS_ITS | Encounter Summary ---
Author Organization [employer] Address [address] [place] [address] [place] [address] Care Team Providers Care Director Oracle Database Name Role Phone Martín Cabrera MD Primary Care Provider [phone] Radha Dawson PharmD Unavailable [phone] Reason for Visit * Reason Comments Med Refill Encounter Details Date Type Department Care Team ([facility] st Contact Info) Description 07/18/2024 Refill [facility] CHC MED & PEDS [address] [place], [place] [phone] Martín Cabrera MD [address] [place] [address] Mixed hyperlipidemia Social History Tobacco Use Types [...] documented as of this encounter Care Teams Director Oracle Database Relationship Specialty Start Date End Date Martín Cabrera MD [address] [place] [address] PCP - General Internal Medicine 12/27/12 Radha Dawson PharmD [address] [place] [address] Pharmacist Internal Medicine 05/24/24 documented as of this encounter
--- OUTSIDE RECORDS SUMMARY | 2025-01-01 16:12 | XMS_ITS | Encounter Summary ---
Author Organization [employer] Address [address] [place] [address] 7 [place] [address] Care Team Providers Care Repossessor Name Role Phone Martín Cabrera MD Primary Care Provider [phone] Radha Dawson PharmD Unavailable [phone] Encounter Details Date Type Department Care Team ([facility] st Contact Info) Description 01/02/2024 Orders Only [facility] CHC MED & PEDS [address] [place] [address] Martín Cabrera MD [address] [place] [address] Primary hypertension (Primary Dx) Social History Tobacco Use Types Packs/Day Years Used Date Smoking Tobacco: Never Passive Smoke Exposure: Never Smokeless Tobacco: Never Alcohol Use Standard Drinks/Week Comments Not Currently 0 (1 standard drink = 0.6 oz pur e alcohol) Housing Stability Answer Date Recorded What is your housing situation today? I have doreenharmony [place]augh 01/30/[address] you [...] hypertension documented in this encounter Care Teams Repossessor Relationship Specialty Start Date End Date Martín Cabrera MD [address] [place] [address] PCP - General Internal Medicine 12/27/12 Radha Dawson PharmD [address] [place] [address] Pharmacist Internal Medicine 05/24/24 documented as of this encounter
--- OUTSIDE RECORDS SUMMARY | 2025-01-01 16:12 | XMS_ITS | Encounter Summary ---
Author Organization [employer] Address [address] [place] [address] [place] [address] Care Team Providers Care Childcare Attendant Name Role Phone Martín Cabrera MD Primary Care Provider [phone] Radha Dawson PharmD Unavailable [phone] Encounter Details Date Type Department Care Team ([facility] st Contact Info) Description 10/01/2022 Orders Only [facility] CHC MED & PEDS [address] [place] [address] Martín Cabrera MD [address] [place] [address] Microcytic anemia (Primary Dx) Social History Tobacco [...] of this encounter Plan of Treatment Scheduled Orders Name Type Priority Associated Diagnoses Orde r Schedule Iron, TIBC And Ferritin Panel Lab Routine Microcytic anemia Expected: 10/01/2022 (Approximate), Expires: 10/02/2023 documented as of this encounter Visit Diagnoses Diagnosis Microcytic anemia- Primary Unspecified iron deficiency anemia documented in this encounter Care Teams Childcare Attendant Relationship Specialty Start Date End Date Martín Cabrera MD [address] [place] [address] PCP - General Internal Medicine 12/27/12 Radha Dawson PharmD [address] [place] [address] Pharmacist Internal Medicine 05/24/24 documented as of this encounter
--- OUTSIDE RECORDS SUMMARY | 2025-01-01 16:12 | XMS_ITS | Encounter Summary ---
Author Organization [employer] Address [address] [facility] 7 [place] [address] Care Team Providers Care Department Head [employer] Name Role Phone Martín Cabrera MD Primary Care Provider [phone] Radha Dawson PharmD Unavailable [phone] Encounter Details Date Type Department Care Team ([facility] st Contact Info) Description 04/07/2023 Orders Only [facility] CHC MED & PEDS [address] [place] [address] Martín Cabrera MD [address] [place] [address] Type 2 diabetes mellitus with stage 3a chronic kidney disease, without long-term current use of insulin ([facility]) Social History Tobacco Use Types Packs/Day Years [...] (HCC) documented in this encounter Care Teams Department Head [employer] Relationship Specialty Start Date End Date Martín Cabrera MD [address] [place] [address] PCP - General Internal Medicine 12/27/12 Radha Dawson PharmD [address] [place] [address] Pharmacist Internal Medicine 05/24/24 documented as of this encounter
--- OUTSIDE RECORDS SUMMARY | 2025-01-01 16:12 | XMS_ITS | Encounter Summary ---
Author Organization [employer] Address [address] [place] [address] 7 [place] [address] Care Team Providers Care Supervisor Gas Meter Repair Name Role Phone Martín Cabrera MD Primary Care Provider [phone] Radha Dawson PharmD Unavailable [phone] Encounter Details Date Type Department Care Team ([facility] st Contact Info) Description 07/10/2024 Orders Only [facility] CHC MED & PEDS [address] [place] [address] Martín Cabrera MD [address] [place] [address] Essential hypertension Social History Tobacco Use Types [...] documented as of this encounter Care Teams Supervisor Gas Meter Repair Relationship Specialty Start Date End Date Martín Cabrera MD [address] [place] [address] PCP - General Internal Medicine 12/27/12 Radha Dawson PharmD [address] [place] [address] Pharmacist Internal Medicine 05/24/24 documented as of this encounter
--- OUTSIDE RECORDS SUMMARY | 2025-01-01 16:12 | XMS_ITS | Encounter Summary ---
Author Organization [employer] Address [address] [place] [address] Care Team Providers Care Sausage Maker Name Role Phone Martín Cabrera MD Primary Care Provider [phone] Radha Dawson PharmD Unavailable [phone] Encounter Details Date Type Department Care Team ([facility] st Contact Info) Description 12/10/2022 Orders Only [facility] CHC MED & PEDS [address] [place] [address] Martín Cabrera MD [address] [place] [address] Type 2 diabetes mellitus with stage 3a [...] disease, without long-term current use of insulin (HCC)- Primary documented in this encounter Care Teams Sausage Maker Relationship Specialty Start Date End Date Martín Cabrera MD [address] [place] [address] PCP - General Internal Medicine 12/27/12 Radha Dawson PharmD [address] [place] [address] [place] [address] Pharmacist Internal Medicine 05/24/24 documented as of this encounter
== END 2025-01-01 16:39 | disposition home or self-care (01) ==
LOC: HO.HGI 14:53
PROVIDERS: PCP Internal Medicine; Visit Provider Nurse Practitioner Family
DX: K21.9 Gastro-esophageal reflux disease without esophagitis (principal); D50.8 Other iron deficiency anemias
CPT/HCPCS: 99213

== ENCOUNTER → 2025-01-01 14:53 | Outpatient (BNVA) | payer MEDICARE, SELFPAY | PROVIDERS: PCP Internal Medicine; Visit Provider Nurse Practitioner Family | DX: K21.9 Gastro-esophageal reflux disease without esophagitis (principal) | CPT/HCPCS: 99212 ==

== ENCOUNTER 2025-03-08 12:01 | Outpatient (AMB) | payer MEDICARE, SELFPAY ==
[2025-03-08 12:56] VITALS: BP 138/80; PULSE 60; TEMP 36.4; O2SAT 100; BMI 29.9
--- NOTE | 2025-03-08 12:56 | MHC.OFFWIV ---
Intake Vital Signs 03/08/25 12:56 Height 5 ft 6 in Weight 185 lb BMI 29.9 BP 138/80 Blood Pressure Location Rt brachial Position Sitting Pulse 60 Pulse Source Pulse Oximeter Temp 97.6 F Temp Source Oral Pulse Oximetry (%) 100 Oxygen Delivery Method Room Air Intake Visit Reasons: EP-rash lt side of rib Intake Note: Patient presents c/o itchy rash on left rib area x3 days. Patient Tobacco Use Status: Never used Tobacco Allergies penicillin G (Penicillin G) Allergy (Mild, Verified 03/08/25 12:59) SYNCOPE HPI HPI Comments History of Present Illness Details This is a 69-year-old male who presented to the walk-in clinic complaining of a pruritic rash to his left side x3 days. He denies any new creams, soaps, lotions, or detergents. He states the rash is extremely pruritic and he has been itching quite a bit. He denies any fevers or chills. He is otherwise feeling well. Of note, bag worker ID #[id number] was used. [facility] Medical History Anemia GERD (gastroesophageal reflux disease) Obstructive sleep apnea HTN (hypertension) Surgical History History of colonoscopy Family History Father HTN (hypertension) Mother No problems noted. Social History Household Members: Spouse Housing: House Do you presently have visiting nurse or other home services: No Patient Tobacco Use Status: Never used Tobacco service: No Current occupational status: employed Review of Systems Const All systems reviewed & are unremarkable except as noted in HPI and below Reports no additional complaints Eyes Reports no additional complaints ENT Reports no additional complaints Card Reports no additional complaints Resp Reports no additional complaints GI Reports no additional complaints Reports no additional complaints Musc Reports no additional complaints Skin/Breast Reports system reviewed and no additional complaints, except as documented Neuro Reports no additional complaints Psych Reports no additional complaints Endo Reports no additional complaints Pablo/Lymph Reports no additional complaints Aller/Immun Reports no additional complaints Physical Exam Exam Exam: Vital signs reviewed. Constitutional: Non-toxic appearing. No acute distress. Well-developed and well-nourished. HEENT: Normocephalic and atraumatic. PERRL/EOMI. Skin: Warm and dry. There are 2 patches of an erythematous maculopapular rash to his left ribs with scattered petechiae and satellite lesions. Neck: Full and painless range of motion. No cervical lymphadenopathy. Cardio: Regular rate. No lower extremity edema. No JVD. Pulmonary: No respiratory distress. No accessory muscle usage. Gastrointestinal: Soft, non-tender, and non-distended in all 4 quadrants. Musculoskeletal: Normal range of motion in joints throughout the body. No deformity or other signs of injury. Neuro: Alert and oriented x4. Cranial nerves 2-12 grossly intact. No focal deficits appreciated. Psych: Normal mood and affect. Vital Signs: Last Vital Signs Temp 97.6 F 03/08/25 12:56 Pulse 60 03/08/25 12:56 BP 138/80 03/08/25 12:56 Pulse Ox 100 03/08/25 12:56 Oxygen Delivery Method Room Air 03/08/25 12:56 BMI result Body Mass Index 29.9 Assessment & Plan Assessment & Plan (1) Contact dermatitis: Code(s): L25.9 - Unspecified contact dermatitis, unspecified cause Qualifiers: Contact dermatitis type: irritant Contact dermatitis trigger: unspecified trigger Qualified Code(s): L24.9 - Irritant contact dermatitis, unspecified cause Plan 69-year-old male who presented to the walk-in clinic complaining of a pruritic rash to his left side x3 days. on physical examination, there are 2 patches of an erythematous maculopapular rash with scattered petechiae in scattered lesions. history and physical most consistent with an irritant contact dermatitis. Patient given a prescription for topical triamcinolone 0.5%. he was advised to follow-up here or proceed to the emergency room if he were to develop spreading erythema, fever/chills, or purulent drainage. Patient verbalized understanding and he is in agreement with plan. Medications: New triamcinolone acetonide 0.5% 1 appl topical BID 15 grams 0RF Coding Level of Care Code Est Pt Level 3 (23057) Diagnoses Irritant contact dermatitis, unspecified trigger L24.9 Contact dermatitis type: irritant Contact dermatitis trigger: unspecified trigger
== END 2025-03-08 13:40 | disposition home or self-care (01) ==
PROVIDERS: PCP Internal Medicine; Visit Provider Physician Assistant Medical
DX: L24.9 Irritant contact dermatitis, unspecified cause (principal)

== ENCOUNTER → 2025-03-08 12:01 | Outpatient (BNVA) | payer MEDICARE, SELFPAY | PROVIDERS: PCP Internal Medicine; Visit Provider Physician Assistant Medical | DX: L24.9 Irritant contact dermatitis, unspecified cause (principal) | CPT/HCPCS: 99212 ==